=== PATIENT | female | born 1995 | race Caucasian/White ===

== ENCOUNTER 2016-06-07 12:59 | Inpatient (IN) | payer OTHER ==
[~2016-06-07] VITALS: Ht 167.6 cm; Wt 101.4 kg
[~2016-06-07 12:59] MED LIST: OMEP40CA3 PO
[2016-06-07 13:28] VITALS: BMI 36.3
[2016-06-07 13:29] VITALS: BP 131/76; PULSE 107; RESP 20
[2016-06-07] MEDS: LACTATED RINGER'S 1,000 ML IV SCH (13:39)
[2016-06-07] MEDS ORDERED: AMPICILLIN 2 GM/NS (PMX) 100 ML IV ONE (14:00)
[2016-06-07] MEDS ORDERED: MAGNESIUM SULFATE 4 GM/100 ML 100 ML IV ONE (14:00)
[2016-06-07] MEDS ORDERED: ONDANSETRON 4 MG INJ IV PRN (14:00)
[2016-06-07] MEDS: MAGNESIUM SULFATE 20 GM/500 ML 500 ML IV SCH (14:11)
[2016-06-07] MEDS: BETAMET NA PHOS/AC(6 MG/ML) 5ML INJ IM SCH (14:12)
[2016-06-07 14:32] LABS: ALBUMIN 3.8 g/dl (3.3-4.9)
[2016-06-07 14:33] LABS: POTASSIUM 3.7 mmol/L (3.5-5.1)
[2016-06-07 14:35] LABS: BILIRUBIN,INDIRECT 0.1 mg/dl (0-1.1); BILIRUBIN,TOTAL 0.1 mg/dl (0.2-1.3); CREATININE 0.39 mg/dl (0.44-1.00)
[2016-06-07 14:35] LABS: ADD UMIC YES; URINE BILIRUBIN (Dip) NEGATIVE (NEGATIVE); URINE BLOOD (Dip) NEGATIVE (NEGATIVE); URINE COLOR LT. YELLOW (YELLOW); URINE GLUCOSE (Dip) NEGATIVE (NEGATIVE); URINE KETONES (Dip) 3+ (NEGATIVE); URINE LEUKOCYTE ESTERASE (Dip) 1+ (NEGATIVE); URINE NITRITE (Dip) NEGATIVE (NEGATIVE); URINE TOTAL PROTEIN (Dip) NEGATIVE (NEGATIVE); URINE UROBILINOGEN (Dip) 1.0 E.U./dL (0.1-1.0)
[2016-06-07 14:36] LABS: ALBUMIN/GLOBULIN RATIO 1.05; CALCIUM 9.5 mg/dl (8.4-10.2); INR 0.92; PROTIME 12.4 Sec (12.2-14.2); TOTAL PROTEIN 7.4 g/dl (6.1-8.1)
[2016-06-07 14:37] LABS: PARTIAL THROMBOPLASTIN TIME 32.3 Sec (25.0-35.0)
[2016-06-07 14:47] LABS: URINE RBCS NONE SEEN /HPF (0)
[2016-06-07 15:43] LABS: BASOPHIL # 0.1 10^3/ul (0.0-0.1); BASOPHILS % 0.3 % (0.0-2.0); EOSINOPHILS % 0.2 % (0.0-7.0); HEMATOCRIT 38.4 % (37.0-47.0); HEMOGLOBIN 12.9 g/dl (12.0-16.0); LYMPHOCYTES # 2.3 10^3/ul (0.8-2.9); LYMPHOCYTES % 15.5 % (15.0-51.0); MEAN CORPUSCULAR HEMOGLOBIN 29.5 pg (29.0-33.0); MEAN CORPUSCULAR HGB CONC 33.7 g/dl (32.0-37.0); MEAN CORPUSCULAR VOLUME 87.7 fl (82.0-101.0); MEAN PLATELET VOLUME 10.2 fl (7.4-10.4); MONOCYTE # 0.9 10^3/ul (0.3-0.9); MONOCYTES % 6.1 % (0.0-11.0); NEUTROPHIL # 11.5 10^3/ul (1.6-7.5); NEUTROPHILS % 77.9 % (39.0-77.0); PLATELET COUNT 362 10^3/UL (140-440); RED BLOOD COUNT 4.38 10^6/ul (4.20-5.40); RED CELL DISTRIBUTION WIDTH 14.4 % (11.5-14.5); UNCORRECTED WBC 14.8 10^3/ul (4.8-10.8); WHITE BLOOD COUNT 14.8 10^3/ul (4.8-10.8)
[2016-06-07 15:45] LABS: CONDITION 1
[2016-06-07] MEDS: ACETAMINOPHEN 325 MG TAB PO PRN (17:42)
[2016-06-07] MEDS: AMPICILLIN 1 GM/NS (PMX) 50 ML IV SCH ×2 (17:42→21:31)
[2016-06-08] MEDS: MAGNESIUM SULFATE 20 GM/500 ML 500 ML IV SCH ×3 (01:01→20:26)
[2016-06-08] MEDS: AMPICILLIN 1 GM/NS (PMX) 50 ML IV SCH ×5 (02:06→17:26)
[2016-06-08] MEDS: LACTATED RINGER'S 1,000 ML IV SCH ×2 (02:07→17:26)
[2016-06-08] MEDS: ACETAMINOPHEN 325 MG TAB PO PRN (07:46)
[2016-06-08] MEDS: MULTIVIT/MIN/FOLATE/IRON/PREN TAB PO SCH (10:05)
[2016-06-08] MEDS: DOCUSATE SODIUM 100 MG CAP PO SCH (10:06)
[2016-06-08] MEDS: FERROUS SULFATE (EC) 325 MG TAB PO SCH (10:06)
[2016-06-08] MEDS: BETAMET NA PHOS/AC(6 MG/ML) 5ML INJ IM SCH (14:11)
--- NOTE | 2016-06-08 14:33 | HP ---
DATE OF ADMISSION: 06/07/2016 REQUESTING PHYSICIAN: Dr. Wild. HISTORY OF PRESENT ILLNESS: The patient was admitted on 06/07/2016, for labor. She was sta rted on magnesium and ampicillin, received the first dose of betamethasone. She may have a urinary tract infection. Gestation is 24 and 2/7 weeks. Her blood type is O positive, RPR nonreactive, hepatitis B surface a ntigen negative, HIV negative, group B strep not done. Her blood type is O negative. She had an ultrasound at 21 weeks, showing an estimated weight of 465 g on 05/17/2016, which i s about 3 weeks ago. Mother is a 22-year-old 2, para 1. I interviewed her together with the father in the room. She had a previous baby born at 22 weeks that was born at [facility] transferred [facility] and from respiratory failure and intracranial bleeding apparently. I spoke extensively to these folks for information about survival, which estimated at this time is a bout 65 to 75%, but chances of increasing survival increasing by the day and week. Respiratory prob lems including RDS, apnea, requiring ventilatory support and surfactant were discussed as well as fe eding including TPN, different arterial and venous access ways, risk for infection, hyperbilirubinem ia, intracranial hemorrhage and many other issues. Parents understood and asked good questions and all their questions were answered by the end of the interview. Thank you for allowing me to assist in the care of this family. Please call us for delivery attenda nce and NICU care, of course, although it may be that delivery might be postponed for a while. Dictated By: MARIELA NAVARRO/KRISTINA Conf#: [id number] DID#: [id number] CC: SHEKHAR WILD MD;*EndCC*
--- NOTE | 2016-06-08 18:22 | HP ---
Date/Time of Note Date/Time of Note DATE: 06/08/16 TIME: 18:18 OB - History Hx of Present Chief Complaint: Short cervix Estimated Due Date: September 27, 2016 : 2 Para: 1 Spontaneous : 0 Therapeutic : 0 Ultrasounds: Abnormal US findings (short cervix 1.1 cm) Obstetrical Complications: Other (threatened labor) Medical Complications: None Past Family/Social History * Past Medical, Surgical, Family and Obstetric Histories reviewed from chart. OB Admission Exam Vital Signs Vital Signs Vital Signs Date Time Temp Pulse Resp B/P Pulse Ox O2 Delivery O2 Flow Rate FiO2 06/07/16 13:29 98.5 107 20 131/76 Room Air Physical Exam HEENT: WNL Heart: Rhythm Normal Lungs: Clear Abdomen: WNL Extremities: Normal Cervical Dilatation: None Effacement: 100% Membranes: Intact Last 72 hours Lab Results CBC & BMP 06/07/16 13:15 06/07/16 13:30 Liver Function Test 06/07/16 13:15 Alanine Aminotransferase (ALT/SGPT) 38 Albumin 3.8 Alkaline Phosphatase 182 H Aspartate Amino Transf (AST/SGOT) 23 Direct Bilirubin 0.00 Total Protein 7.4 Magnesium Level Test 06/07/16 17:35 06/08/16 00:30 06/08/16 05:40 06/08/16 12:55 Magnesium Level 4.1 H 4.6 H 4.7 H 4.5 H OB Assessment/Plan Reason for admission: labor Other plan: Admit. IV magnesium sulfate IM betamethasone NICU consult MFM consult SHEKHAR WILD MD Jun 08, 2016 18:22
[2016-06-08] MEDS ORDERED: AMPICILLIN 2 GM/NS (PMX) 100 ML IVPB SCH (18:30)
[2016-06-08] MEDS ORDERED: AMPICILLIN 1 GM/NS (PMX) 50 ML IV SCH (18:45)
[2016-06-09] MEDS: ACETAMINOPHEN 325 MG TAB PO PRN ×2 (00:07→06:09)
[2016-06-09] MEDS: AMPICILLIN 2 GM/NS (PMX) 100 ML IVPB SCH ×4 (00:16→17:32)
[2016-06-09] MEDS: MAGNESIUM SULFATE 20 GM/500 ML 500 ML IV SCH ×2 (07:40→17:31)
[2016-06-09] MEDS: MULTIVIT/MIN/FOLATE/IRON/PREN TAB PO SCH (09:50)
[2016-06-09] MEDS: DOCUSATE SODIUM 100 MG CAP PO SCH (09:50)
[2016-06-09] MEDS: FERROUS SULFATE (EC) 325 MG TAB PO SCH (09:50)
[2016-06-09] MEDS: LACTATED RINGER'S 1,000 ML IV SCH (10:57)
[2016-06-10] MEDS: AMPICILLIN 2 GM/NS (PMX) 100 ML IVPB SCH ×5 (00:08→23:33)
[2016-06-10] MEDS: LACTATED RINGER'S 1,000 ML IV SCH ×2 (00:14→14:10)
[2016-06-10] MEDS: MAGNESIUM SULFATE 20 GM/500 ML 500 ML IV SCH (03:42)
[2016-06-10] MEDS: DOCUSATE SODIUM 100 MG CAP PO SCH (08:57)
[2016-06-10] MEDS: FERROUS SULFATE (EC) 325 MG TAB PO SCH (08:57)
[2016-06-10] MEDS: MULTIVIT/MIN/FOLATE/IRON/PREN TAB PO SCH (08:58)
[2016-06-10] MEDS: ACETAMINOPHEN 325 MG TAB PO PRN (09:41)
[2016-06-10] MEDS: [UNRECOGNIZED DRUG - OTHER] IM SCH (13:57)
--- NOTE | 2016-06-10 16:32 | QN ---
Documentation Comment No complaint. Afebrile VSS Strip Appropriate for GA D/C magnesium sulfate Continue with in hospital care. SHEKHAR WILD MD Jun 10, 2016 16:32
[2016-06-10] MEDS ORDERED: SENNA TAB PO ONE (21:00)
[2016-06-10] MEDS: WITCH HAZEL/GLYCERIN PAD PR PRN (21:43)
[2016-06-11] MEDS: LACTATED RINGER'S 1,000 ML IV SCH ×2 (05:38→21:36)
[2016-06-11] MEDS: AMPICILLIN 2 GM/NS (PMX) 100 ML IVPB SCH ×3 (05:39→18:21)
[2016-06-11] MEDS: MULTIVIT/MIN/FOLATE/IRON/PREN TAB PO SCH (08:57)
[2016-06-11] MEDS: FERROUS SULFATE (EC) 325 MG TAB PO SCH (08:58)
[2016-06-11] MEDS: DOCUSATE SODIUM 100 MG CAP PO SCH (09:01)
--- NOTE | 2016-06-11 16:56 | QN ---
Documentation Comment @24+WKS GA with shortened cervix No CTX +FM No LOF NO VB NST ressuring for GA (last one) [facility] No CTXs Pelvic Deffered s/p MG and steroids --->Close Observation --->Management as per Perinatalogy SHARON FIELDS M.D. Jun 11, 2016 16:56
[2016-06-11] MEDS: ACETAMINOPHEN 325 MG TAB PO PRN (22:26)
[2016-06-12] MEDS: AMPICILLIN 2 GM/NS (PMX) 100 ML IVPB SCH ×4 (00:15→18:22)
[2016-06-12] MEDS: DOCUSATE SODIUM 100 MG CAP PO SCH (09:05)
[2016-06-12] MEDS: MULTIVIT/MIN/FOLATE/IRON/PREN TAB PO SCH (09:06)
[2016-06-12] MEDS: FERROUS SULFATE (EC) 325 MG TAB PO SCH (09:06)
[2016-06-12] MEDS: LACTATED RINGER'S 1,000 ML IV SCH (14:30)
--- NOTE | 2016-06-12 19:39 | QN ---
Documentation Comment No complaint Afebrile VSS strip Appropriate for GA Continue with inhospital care. SHEKHAR WILD MD Jun 12, 2016 19:39
[2016-06-13] MEDS: AMPICILLIN 2 GM/NS (PMX) 100 ML IVPB SCH ×4 (00:03→17:46)
[2016-06-13] MEDS: LACTATED RINGER'S 1,000 ML IV SCH ×4 (02:59→21:53)
[2016-06-13] MEDS: DOCUSATE SODIUM 100 MG CAP PO SCH (08:42)
[2016-06-13] MEDS: MULTIVIT/MIN/FOLATE/IRON/PREN TAB PO SCH (08:42)
[2016-06-13] MEDS: FERROUS SULFATE (EC) 325 MG TAB PO SCH (08:42)
--- NOTE | 2016-06-13 18:59 | QN ---
Documentation Comment No complaint. Afebrile VSS Strip Appropriate for GA Continue with present care. SHEKHAR WILD MD Jun 13, 2016 18:59
[2016-06-14] MEDS: AMPICILLIN 2 GM/NS (PMX) 100 ML IVPB SCH ×4 (00:25→19:15)
[2016-06-14] MEDS: MULTIVIT/MIN/FOLATE/IRON/PREN TAB PO SCH (08:50)
[2016-06-14] MEDS: FERROUS SULFATE (EC) 325 MG TAB PO SCH (08:51)
[2016-06-14] MEDS: DOCUSATE SODIUM 100 MG CAP PO SCH (08:51)
[2016-06-14] MEDS: SENNA TAB PO SCH (08:51)
[2016-06-14] MEDS: LACTATED RINGER'S 1,000 ML IV SCH (11:33)
[2016-06-15] MEDS: AMPICILLIN 2 GM/NS (PMX) 100 ML IVPB SCH ×4 (00:01→17:58)
--- NOTE | 2016-06-15 01:11 | QN ---
Documentation Comment No complaint Afebrile VSS Strip Appropriate for GA Continue with in hospital care. SHEKHAR WILD MD Jun 15, 2016 01:11
[2016-06-15] MEDS: LACTATED RINGER'S 1,000 ML IV SCH ×2 (02:36→17:33)
[2016-06-15] MEDS: FERROUS SULFATE (EC) 325 MG TAB PO SCH (09:01)
[2016-06-15] MEDS: MULTIVIT/MIN/FOLATE/IRON/PREN TAB PO SCH (09:01)
[2016-06-15] MEDS: SENNA TAB PO SCH (09:01)
[2016-06-15] MEDS: DOCUSATE SODIUM 100 MG CAP PO SCH (09:01)
[2016-06-16] MEDS: AMPICILLIN 2 GM/NS (PMX) 100 ML IVPB SCH ×5 (00:43→23:32)
[2016-06-16] MEDS: MULTIVIT/MIN/FOLATE/IRON/PREN TAB PO SCH (09:19)
[2016-06-16] MEDS: SENNA TAB PO SCH (09:19)
[2016-06-16] MEDS: FERROUS SULFATE (EC) 325 MG TAB PO SCH (09:20)
[2016-06-16] MEDS: DOCUSATE SODIUM 100 MG CAP PO SCH (09:20)
[2016-06-16] MEDS: LACTATED RINGER'S 1,000 ML IV SCH ×2 (10:01→23:32)
[2016-06-16] MEDS: ACETAMINOPHEN 325 MG TAB PO PRN ×2 (13:42→18:11)
--- NOTE | 2016-06-16 19:55 | QN ---
Documentation Comment No complaint Afebrile VSS Strip Appropriate for GA Continue with in hospital care. SHEKHAR WILD MD Jun 16, 2016 19:55
[2016-06-17] MEDS: AMPICILLIN 2 GM/NS (PMX) 100 ML IVPB SCH ×2 (05:53→11:29)
[2016-06-17] MEDS: MULTIVIT/MIN/FOLATE/IRON/PREN TAB PO SCH (08:41)
[2016-06-17] MEDS: FERROUS SULFATE (EC) 325 MG TAB PO SCH (08:41)
[2016-06-17] MEDS: DOCUSATE SODIUM 100 MG CAP PO SCH (08:41)
[2016-06-17] MEDS: SENNA TAB PO SCH (08:41)
[2016-06-17] MEDS: LACTATED RINGER'S 1,000 ML IV SCH (11:29)
[2016-06-17] MEDS: [UNRECOGNIZED DRUG - OTHER] IM SCH (11:40)
--- NOTE | 2016-06-17 16:01 | QN ---
Documentation Comment No complaint Afebrile VSS Strip Appropriate for GA Patient is on weekly injection of [place] Continue with in hospital care. SHEKHAR WILD MD Jun 17, 2016 16:01
[2016-06-18] MEDS: DOCUSATE SODIUM 100 MG CAP PO SCH (08:57)
[2016-06-18] MEDS: FERROUS SULFATE (EC) 325 MG TAB PO SCH (08:57)
[2016-06-18] MEDS: SENNA TAB PO SCH (08:57)
[2016-06-18] MEDS: MULTIVIT/MIN/FOLATE/IRON/PREN TAB PO SCH (08:57)
--- NOTE | 2016-06-18 15:30 | QN ---
Documentation Comment No complaint Afebrile VSS Strip Appropriate for GA Continue with in hospital care. SHEKHAR WLID MD Jun 18, 2016 15:30
[2016-06-19] MEDS: DOCUSATE SODIUM 100 MG CAP PO SCH (08:51)
[2016-06-19] MEDS: SENNA TAB PO SCH (08:51)
[2016-06-19] MEDS: MULTIVIT/MIN/FOLATE/IRON/PREN TAB PO SCH (08:51)
[2016-06-19] MEDS: FERROUS SULFATE (EC) 325 MG TAB PO SCH (08:51)
[2016-06-19] MEDS: ACETAMINOPHEN 325 MG TAB PO PRN (13:06)
--- NOTE | 2016-06-19 19:40 | QN ---
Documentation Comment No complaint Afebrile VSS Strip Appropriate for GA Continue with present care. SHEKHAR WILD MD Jun 19, 2016 19:40
[2016-06-20] MEDS: DOCUSATE SODIUM 100 MG CAP PO SCH (09:52)
[2016-06-20] MEDS: MULTIVIT/MIN/FOLATE/IRON/PREN TAB PO SCH (09:53)
[2016-06-20] MEDS: SENNA TAB PO SCH (09:53)
[2016-06-20] MEDS: FERROUS SULFATE (EC) 325 MG TAB PO SCH (09:53)
[2016-06-20] MEDS: ACETAMINOPHEN 325 MG TAB PO PRN (13:14)
--- NOTE | 2016-06-20 14:10 | QN ---
Documentation Comment No complaint Afebrile VSS Strip Appropriate for GA Continue with present care. SHEKHAR WILD MD Jun 20, 2016 14:10
[2016-06-21] MEDS: MULTIVIT/MIN/FOLATE/IRON/PREN TAB PO SCH (08:57)
[2016-06-21] MEDS: DOCUSATE SODIUM 100 MG CAP PO SCH (08:57)
[2016-06-21] MEDS: FERROUS SULFATE (EC) 325 MG TAB PO SCH (08:57)
[2016-06-21] MEDS: SENNA TAB PO SCH (08:57)
--- NOTE | 2016-06-21 20:12 | QN ---
Documentation Comment No complaint Afebrile VSS Strip Appropriate for GA Continue with in hospital care. SHEKHAR WILD MD Jun 21, 2016 20:12
[2016-06-22] MEDS: FERROUS SULFATE (EC) 325 MG TAB PO SCH (08:56)
[2016-06-22] MEDS: DOCUSATE SODIUM 100 MG CAP PO SCH (08:56)
[2016-06-22] MEDS: SENNA TAB PO SCH (08:56)
[2016-06-22] MEDS: MULTIVIT/MIN/FOLATE/IRON/PREN TAB PO SCH (08:56)
--- NOTE | 2016-06-22 23:21 | PN ---
Date/Time of Note Date/Time of Note DATE: 06/22/16 TIME: 23:19 OB Subjective Subjective Subjective 20 yo P0100 @ 26.1 wks w shortened cervix -s/p magnesium sulfate and betamethasone -patient receiving weekly progesterone shots - NST appropriate for gestational age - c/w plan as per ARNOLDO Cote MD Jun 22, 2016 23:21
[2016-06-23] MEDS: SENNA TAB PO SCH (09:10)
[2016-06-23] MEDS: FERROUS SULFATE (EC) 325 MG TAB PO SCH (09:10)
[2016-06-23] MEDS: MULTIVIT/MIN/FOLATE/IRON/PREN TAB PO SCH (09:10)
[2016-06-23] MEDS: DOCUSATE SODIUM 100 MG CAP PO SCH (09:10)
[2016-06-23] MEDS ORDERED: WITCH HAZEL/GLYCERIN PAD PR PRN (16:00)
--- NOTE | 2016-06-23 18:06 | QN ---
Documentation Comment No complaint Afebrile VSS Strip Appropriate for GA Continue with present care. SHEKHAR WILD MD Jun 23, 2016 18:06
[2016-06-24] MEDS: DOCUSATE SODIUM 100 MG CAP PO SCH (08:51)
[2016-06-24] MEDS: FERROUS SULFATE (EC) 325 MG TAB PO SCH (08:51)
[2016-06-24] MEDS: MULTIVIT/MIN/FOLATE/IRON/PREN TAB PO SCH (08:51)
[2016-06-24] MEDS: SENNA TAB PO SCH (08:52)
[2016-06-24] MEDS: [UNRECOGNIZED DRUG - OTHER] IM SCH (16:35)
--- NOTE | 2016-06-24 16:41 | QN ---
Documentation Comment no complaint Afebrile VSS Strip Appropriate for GA Continue with in hospital care. SHEKHAR WILD MD Jun 24, 2016 16:41
[2016-06-25] MEDS: SENNA TAB PO SCH (09:08)
[2016-06-25] MEDS: FERROUS SULFATE (EC) 325 MG TAB PO SCH (09:09)
[2016-06-25] MEDS: MULTIVIT/MIN/FOLATE/IRON/PREN TAB PO SCH (09:09)
[2016-06-25] MEDS: DOCUSATE SODIUM 100 MG CAP PO SCH (09:09)
--- NOTE | 2016-06-25 13:16 | QN ---
Documentation Comment pt doing well no complaints vss catb abd soft ap-short cervix stable continue care MOE WEBBER MD Jun 25, 2016 13:16
[2016-06-26] MEDS: FERROUS SULFATE (EC) 325 MG TAB PO SCH (08:13)
[2016-06-26] MEDS: SENNA TAB PO SCH (08:13)
[2016-06-26] MEDS: MULTIVIT/MIN/FOLATE/IRON/PREN TAB PO SCH (08:13)
[2016-06-26] MEDS: DOCUSATE SODIUM 100 MG CAP PO SCH (08:14)
--- NOTE | 2016-06-26 12:18 | QN ---
Documentation Comment No complaint Afebrile VSS Strip Appropriate for GA Continue with in hospital care. SHEKHAR WILD MD Jun 26, 2016 12:18
[2016-06-26] MEDS: AL HYDROX/MG HYDROX/SIMETH 30 ML CUP PO PRN ×2 (12:37→20:25)
[2016-06-26] MEDS: ACETAMINOPHEN 325 MG TAB PO PRN (12:39)
[2016-06-27] MEDS: SENNA TAB PO SCH (08:52)
[2016-06-27] MEDS: FERROUS SULFATE (EC) 325 MG TAB PO SCH (08:52)
[2016-06-27] MEDS: MULTIVIT/MIN/FOLATE/IRON/PREN TAB PO SCH (08:52)
[2016-06-27] MEDS: DOCUSATE SODIUM 100 MG CAP PO SCH (08:52)
[2016-06-27] MEDS ORDERED: PANTOPRAZOLE (EC) 40 MG TAB PO ONE (10:30)
--- NOTE | 2016-06-27 11:11 | RADRPT ---
AMENDMENT: 06/28/2016 1:46:28 PM Tony Roberts MD Maximum vertical pocket of amniotic fluid is 4.8 cm. PROCEDURE: US OB. CLINICAL INDICATION: Short cervix. TECHNIQUE: Multiple sonographic images of the uterus were obtained. The images were revi ewed on a PACS workstation. COMPARISON: No prior studies are available for comparison. FINDINGS: There is a single live intrauterine gestation. heart rate is 159 beats per minute. Measurements were made in order to determine age. The results are as follows: BPD = 7.13 cm. HC = 26.34 cm. AC = 23.99 cm. FL = 5.04 cm. Estimated weight is 1149 +/- 172 grams. LMP growth percentile is 81 %. Menstrual age by ultrasound dates is 28 weeks 1 day. The estimated date of delivery is 09/18/2016. Position is cephalic and placenta is anterior grade 1. There is no evidence for an abruption or plac enta previa. IMPRESSION: 1. Single live intrauterine gestation of 28 weeks 1 day menstrual age by ultrasound dates. 2. The estimated date of delivery is 09/18/2016. RPTAT: QQ .Tony Roberts MD, Date Time Electronically viewed and signed by .Tony Roberts MD, on 06/28/2016 13:46 .R/
[2016-06-27] MEDS: ACETAMINOPHEN 325 MG TAB PO PRN (13:05)
--- NOTE | 2016-06-27 15:21 | PN ---
Date/Time of Note Date/Time of Note DATE: 06/27/16 TIME: 15:17 OB Subjective Subjective Subjective June 27, 2016 Hospital consult This patient is a 20 years old 1 para 1 living 0 who lost her first due prematurity and delivering at 22 weeks gestation did not survive. this is the second she was admitted in the hospital about 4 weeks ago to short cervix today she is 26 weeks and 6 days fortunately does not have much of the contractions her last ultrasound a few days ago was reported at the cervical length of 1 cm yesterday on pelvic examination done by Dr. Ferraro the cervix looked pretty much the same with no dilatation. Today when I saw her. she had no contractions . her own BP is around 120/70 range on ultrasound study today estimated weight was 1149 g her previous medications which was ampicillin the mag sulfate were discontinued The plan is to l continue having her in the hospital for a few weeks. Current Medications Medications (Trade) Dose Ordered Sig/Maximiliano Route PRN Reason Start Time Stop Time Status Last Admin Dose Admin Lactated Ringer's 1,000 ml @ 75 mls/hr [id number] IV 06/07/16 13:39 06/17/16 15:41 DC 06/17/16 11:29 Magnesium Sulfate (Magnesium Sulfate 4 Gm/100 ml) 100 ml @ 200 mls/hr ONCE ONCE IV 06/07/16 14:00 06/07/16 14:29 DC 06/07/16 14:10 Betamethasone Acet/Betameth SodPhos 12 mg 12 mg Q24H IM 06/07/16 14:00 06/08/16 14:01 DC 06/08/16 14:11 Ampicillin 100 ml @ 100 mls/hr ONCE ONCE IV 06/07/16 14:00 06/07/16 15:01 DC 06/07/16 14:12 Ampicillin (Ampicillin 1 Gm/ NS (Pmx)) 50 ml @ 100 mls/hr Q4H IV 06/07/16 18:00 06/08/16 18:30 DC 06/08/16 17:26 Prenat Multivit/ [employer]/Iron/Folic Ac ( S) 1 tab DAILY PO 06/08/16 09:00 06/27/16 08:52 Ferrous Sulfate (Ferrous Sulfate (Ec)) 325 mg DAILY PO 06/08/16 09:00 06/27/16 08:52 Docusate Sodium (Colace) 100 mg DAILY PO 06/08/16 09:00 06/27/16 08:52 Acetaminophen (Tylenol Tab) 650 mg Q4H PRN PO PAIN AND OR ELEVATED TEMP 06/07/16 14:00 06/27/16 13:05 Al Hydrox/Mg Hydrox/Simethicone (Mag-Al Plus) 30 ml Q6H PRN PO GASTROINTESTINAL UPSET 06/07/16 14:00 06/26/16 20:25 Ondansetron HCl 4 mg 4 mg Q6H PRN IV NAUSEA AND/OR VOMITING 06/07/16 14:00 Magnesium Sulfate 500 ml @ 50 mls/hr Q10H IV 06/07/16 14:04 06/11/16 13:48 DC 06/10/16 03:42 Ampicillin 100 ml @ 100 mls/hr Q6 IVPB 06/08/16 18:30 06/08/16 18:33 DC Ampicillin 100 ml @ 100 mls/hr Q6 IVPB 06/09/16 00:00 06/17/16 15:41 DC 06/17/16 11:29 Ampicillin (Ampicillin 1 Gm/ NS (Pmx)) 50 ml @ 100 mls/hr ONCE IV 06/08/16 18:45 06/08/16 19:30 DC 06/08/16 18:44 Non-Formulary Medication ADMINISTER 1ML (250MG) INTRAMUSCULA... Sa@14 IM 06/10/16 14:00 06/24/16 16:35 Senna (Senokot) 2 tab ONCE ONCE PO 06/10/16 21:00 06/11/16 13:51 DC 06/10/16 21:44 [place]/ Glycerin (Tucks Pads) 1 pad PRN PRN ME HEMORRHOID/EPISIOTMY PAIN 06/10/16 21:00 06/10/16 21:43 Senna (Senokot) 1 tab DAILY PO 06/14/16 09:00 06/27/16 08:52 [place]/ Glycerin (Tucks Pads) 1 pad PRN PRN ME HEMORROID PAIN/ITCHING 06/23/16 16:00 Pantoprazole (Protonix Tab) 40 mg ONCE ONCE PO 06/27/16 10:30 06/27/16 10:33 DC 06/27/16 11:32 End of dictation PARI BARNES MD Jun 27, 2016 15:21
[2016-06-28] MEDS ORDERED: PANTOPRAZOLE (EC) 40 MG TAB PO SCH (09:00)
[2016-06-28] MEDS: MULTIVIT/MIN/FOLATE/IRON/PREN TAB PO SCH (09:23)
[2016-06-28] MEDS: SENNA TAB PO SCH (09:23)
[2016-06-28] MEDS: DOCUSATE SODIUM 100 MG CAP PO SCH (09:23)
[2016-06-28] MEDS: FERROUS SULFATE (EC) 325 MG TAB PO SCH (09:23)
[2016-06-28] MEDS: ACETAMINOPHEN 325 MG TAB PO PRN (15:41)
--- NOTE | 2016-06-28 20:07 | QN ---
Documentation Comment No complaint Afebrile VSS Strip Appropriate for GA Continue with in hospital care. SHEKHAR WILD MD Jun 28, 2016 20:07
[2016-06-29] MEDS: MULTIVIT/MIN/FOLATE/IRON/PREN TAB PO SCH (09:12)
[2016-06-29] MEDS: SENNA TAB PO SCH (09:12)
[2016-06-29] MEDS: DOCUSATE SODIUM 100 MG CAP PO SCH (09:12)
[2016-06-29] MEDS: FERROUS SULFATE (EC) 325 MG TAB PO SCH (09:12)
--- NOTE | 2016-06-29 17:59 | QN ---
Documentation Comment No complaint Afebrile VSS Strip Appropriate for GA Continue with in hospital care. SHEKHAR WILD MD Jun 29, 2016 17:59
[2016-06-29] MEDS: ACETAMINOPHEN 325 MG TAB PO PRN (19:36)
[2016-06-30] MEDS: FERROUS SULFATE (EC) 325 MG TAB PO SCH (09:05)
[2016-06-30] MEDS: MULTIVIT/MIN/FOLATE/IRON/PREN TAB PO SCH (09:05)
[2016-06-30] MEDS: SENNA TAB PO SCH (09:05)
[2016-06-30] MEDS: DOCUSATE SODIUM 100 MG CAP PO SCH (09:06)
[2016-06-30] MEDS: AL HYDROX/MG HYDROX/SIMETH 30 ML CUP PO PRN (12:53)
--- NOTE | 2016-06-30 13:35 | QN ---
Documentation Comment No complaint Afebrile VSS Strip Appropriate for GA Continue with in hospital care. SHEKHAR WILD MD Jun 30, 2016 13:35
[2016-07-01] MEDS: ACCU-CHEK XX SCH ×4 (07:59→19:31)
[2016-07-01] MEDS: FERROUS SULFATE (EC) 325 MG TAB PO SCH (08:39)
[2016-07-01] MEDS: MULTIVIT/MIN/FOLATE/IRON/PREN TAB PO SCH (08:39)
[2016-07-01] MEDS: DOCUSATE SODIUM 100 MG CAP PO SCH (08:39)
[2016-07-01] MEDS: SENNA TAB PO SCH (08:39)
[2016-07-01] MEDS: [UNRECOGNIZED DRUG - OTHER] IM SCH (14:14)
[2016-07-01] MEDS: ACETAMINOPHEN 325 MG TAB PO PRN (14:24)
--- NOTE | 2016-07-01 19:05 | QN ---
Documentation Comment No complaint Afebrile VSS strip appropriate for GA 3 hour GTT elevated Patient is on ADA diet and accu-checks are done fasting and 2 hour pp. SHEKHAR WILD MD Jul 01, 2016 19:05
[2016-07-02] MEDS: ACCU-CHEK XX SCH ×3 (08:03→14:55)
[2016-07-02] MEDS: MULTIVIT/MIN/FOLATE/IRON/PREN TAB PO SCH (08:53)
[2016-07-02] MEDS: FERROUS SULFATE (EC) 325 MG TAB PO SCH (08:54)
[2016-07-02] MEDS: DOCUSATE SODIUM 100 MG CAP PO SCH (08:54)
[2016-07-02] MEDS: SENNA TAB PO SCH (08:54)
[2016-07-02] MEDS: ACETAMINOPHEN 325 MG TAB PO PRN (10:58)
--- NOTE | 2016-07-02 18:40 | QN ---
Documentation Comment No complaint Afebrile VSS Strip Appropriate for GA Blood glucose well controlled with diet. Continue with present care. SHEKHAR WILD MD Jul 02, 2016 18:39
[2016-07-03] MEDS: ACCU-CHEK XX SCH ×4 (07:42→20:17)
[2016-07-03] MEDS: SENNA TAB PO SCH (08:54)
[2016-07-03] MEDS: MULTIVIT/MIN/FOLATE/IRON/PREN TAB PO SCH (08:54)
[2016-07-03] MEDS: FERROUS SULFATE (EC) 325 MG TAB PO SCH (08:54)
[2016-07-03] MEDS: DOCUSATE SODIUM 100 MG CAP PO SCH (08:54)
--- NOTE | 2016-07-03 14:08 | QN ---
Documentation Comment No complaint Afebrile VSS Strip appropriate for GA Continue with in hospital care. SHEKHAR WILD MD Jul 03, 2016 14:08
[2016-07-04] MEDS: ACCU-CHEK XX SCH ×4 (08:36→20:59)
[2016-07-04] MEDS: SENNA TAB PO SCH (09:00)
[2016-07-04] MEDS: MULTIVIT/MIN/FOLATE/IRON/PREN TAB PO SCH (09:00)
[2016-07-04] MEDS: FERROUS SULFATE (EC) 325 MG TAB PO SCH (09:00)
[2016-07-04] MEDS: DOCUSATE SODIUM 100 MG CAP PO SCH (09:00)
--- NOTE | 2016-07-04 11:07 | PN ---
Date/Time of Note Date/Time of Note DATE: 07/04/16 TIME: 11:00 OB Subjective Subjective Subjective July 04, 2016 Hospital visit This patient is a 20 years old 1 para 1 living 0 who lost her first due prematurity and delivering at 22 weeks gestation did not survive. this is the second she was admitted in the hospital about 2 months ago . She is now 27 weeks and 6 days . Basically she is doing very well,. No contractions,. heart tracing is normal , her NST today is reactive. No abdominal tenderness. No calf tenderness We will continue her observation care in the hospital for now Laboratory Tests Test 07/03/16 14:54 07/03/16 20:13 07/04/16 08:36 07/04/16 10:46 Bedside Glucose 93mg/dL 118mg/dL 75mg/dL 78mg/dL Current Medications Medications (Trade) Dose Ordered Sig/Maximiliano Route PRN Reason Start Time Stop Time Status Last Admin Dose Admin Lactated Ringer's 1,000 ml @ 75 mls/hr [id number] IV 06/07/16 13:39 06/17/16 15:41 DC 06/17/16 11:29 Magnesium Sulfate (Magnesium Sulfate 4 Gm/100 ml) 100 ml @ 200 mls/hr ONCE ONCE IV 06/07/16 14:00 06/07/16 14:29 DC 06/07/16 14:10 Betamethasone Acet/Betameth SodPhos 12 mg 12 mg Q24H IM 06/07/16 14:00 06/08/16 14:01 DC 06/08/16 14:11 Ampicillin 100 ml @ 100 mls/hr ONCE ONCE IV 06/07/16 14:00 06/07/16 15:01 DC 06/07/16 14:12 Ampicillin (Ampicillin 1 Gm/ NS (Pmx)) 50 ml @ 100 mls/hr Q4H IV 06/07/16 18:00 06/08/16 18:30 DC 06/08/16 17:26 Prenat Multivit/ [place]/Iron/Folic Ac ( S) 1 tab DAILY PO 06/08/16 09:00 07/04/16 09:00 Ferrous Sulfate (Ferrous Sulfate (Ec)) 325 mg DAILY PO 06/08/16 09:00 07/04/16 09:00 Docusate Sodium (Colace) 100 mg DAILY PO 06/08/16 09:00 07/04/16 09:00 Acetaminophen (Tylenol Tab) 650 mg Q4H PRN PO PAIN AND OR ELEVATED TEMP 06/07/16 14:00 07/02/16 10:58 Al Hydrox/Mg Hydrox/Simethicone (Mag-Al Plus) 30 ml Q6H PRN PO GASTROINTESTINAL UPSET 06/07/16 14:00 06/30/16 12:53 Ondansetron HCl 4 mg 4 mg Q6H PRN IV NAUSEA AND/OR VOMITING 06/07/16 14:00 Magnesium Sulfate 500 ml @ 50 mls/hr Q10H IV 06/07/16 14:04 06/11/16 13:48 DC 06/10/16 03:42 Ampicillin 100 ml @ 100 mls/hr Q6 IVPB 06/08/16 18:30 06/08/16 18:33 DC Ampicillin 100 ml @ 100 mls/hr Q6 IVPB 06/09/16 00:00 06/17/16 15:41 DC 06/17/16 11:29 Ampicillin (Ampicillin 1 Gm/ NS (Pmx)) 50 ml @ 100 mls/hr ONCE IV 06/08/16 18:45 06/08/16 19:30 DC 06/08/16 18:44 Non-Formulary Medication ADMINISTER 1ML (250MG) INTRAMUSCULA... Sa@14 IM 06/10/16 14:00 07/01/16 14:14 Senna (Senokot) 2 tab ONCE ONCE PO 06/10/16 21:00 06/11/16 13:51 DC 06/10/16 21:44 [place]/ Glycerin (Tucks Pads) 1 pad PRN PRN GA HEMORRHOID/EPISIOTMY PAIN 06/10/16 21:00 06/10/16 21:43 Senna (Senokot) 1 tab DAILY PO 06/14/16 09:00 07/04/16 09:00 [place]/ Glycerin (Tucks Pads) 1 pad PRN PRN GA HEMORROID PAIN/ITCHING 06/23/16 16:00 Pantoprazole (Protonix Tab) 40 mg ONCE ONCE PO 06/27/16 10:30 06/28/16 09:29 DC 06/27/16 11:32 Pantoprazole (Protonix Tab) 40 mg DAILY@06 PO 06/28/16 09:00 06/28/16 09:31 DC 06/28/16 09:23 Diagnostic Test (Pha) (Accucheck) 1 ea FBSPP XX 07/01/16 07:30 07/04/16 08:36 PARI BARNES MD Jul 04, 2016 11:07
[2016-07-05] MEDS: ACCU-CHEK XX SCH ×4 (08:00→20:05)
[2016-07-05] MEDS: DOCUSATE SODIUM 100 MG CAP PO SCH (09:05)
[2016-07-05] MEDS: SENNA TAB PO SCH (09:05)
[2016-07-05] MEDS: MULTIVIT/MIN/FOLATE/IRON/PREN TAB PO SCH (09:05)
[2016-07-05] MEDS: FERROUS SULFATE (EC) 325 MG TAB PO SCH (09:05)
--- NOTE | 2016-07-05 12:37 | PN ---
Date/Time of Note Date/Time of Note DATE: 07/05/16 TIME: 12:32 OB Subjective Subjective Subjective Patient denies any pain, contractions, LOF or vaginal bleeding, abdominal pain or any other complaint. She denies decreased movement OB Objective Objective Objective GA: A&O, NAD Comfortable in the bed. Abdomen: soft, non tender, Gravid. No rebound tenderness, Fundal Height consistent with GA NST: Cat 1 and is appropriate for GA No contractions on the monitor OB Assessment/Plan Other Assessment: IUP at 28 weeks Admitted for the past several weeks due to short cervix. now stable history of PTD at 22 weeks S/p 2 doses of steriod and Magnesium and received antibiotics Now of of Magnesium and Abx Stable and asymptomatic Plan to continue expectant management in house. GDM based on the Glucose tolerance test, on 2000 Kcal diet . Blood sugars are in fairly normal limits S/p Perinatology and neonatology consultation. continue NST Q shift DINAH DIETRICH MD Jul 05, 2016 12:37
[2016-07-05] MEDS ORDERED: INFLUENZA VIRUS VACCINE 0.5 ML SYG IM* ONE (13:00)
[2016-07-05] MEDS ORDERED: DIPHTH/TET/ACEL PERTUSS (ADULT) 0.5 ML VIAL IM* ONE (14:00)
[2016-07-05] MEDS: ACETAMINOPHEN 325 MG TAB PO PRN (18:34)
[2016-07-06] MEDS: ACCU-CHEK XX SCH ×4 (08:00→20:39)
[2016-07-06] MEDS: SENNA TAB PO SCH (09:37)
[2016-07-06] MEDS: FERROUS SULFATE (EC) 325 MG TAB PO SCH (09:37)
[2016-07-06] MEDS: MULTIVIT/MIN/FOLATE/IRON/PREN TAB PO SCH (09:37)
[2016-07-06] MEDS: DOCUSATE SODIUM 100 MG CAP PO SCH (09:38)
--- NOTE | 2016-07-06 20:27 | QN ---
Documentation Comment S: Patient has no complaints; good FM, no VB, no LOF, no ctx O: nml VS Abdomen- gravid, n/t reactive NST [place]- no ctx A/P: IUP at 28 weeks, 1 day Admitted for the past several weeks due to short cervix. now stable history of PTD at 22 weeks S/p 2 doses of steriod and Magnesium and received antibiotics Now of of Magnesium and Abx Stable and asymptomatic Plan to continue expectant management in house. GDM based on the Glucose tolerance test, on 2000 Kcal diet . Blood sugars are in fairly normal limits S/p Perinatology and neonatology consultation. continue NST Q shift ARNOLDO VILLA MD Jul 06, 2016 20:27
[2016-07-07] MEDS: ACCU-CHEK XX SCH ×4 (08:25→21:38)
[2016-07-07] MEDS: DOCUSATE SODIUM 100 MG CAP PO SCH (09:15)
[2016-07-07] MEDS: SENNA TAB PO SCH (09:15)
[2016-07-07] MEDS: FERROUS SULFATE (EC) 325 MG TAB PO SCH (09:15)
[2016-07-07] MEDS: MULTIVIT/MIN/FOLATE/IRON/PREN TAB PO SCH (09:15)
--- NOTE | 2016-07-07 18:53 | QN ---
Documentation Comment No complaiont. Afebrile VSS Strip appropriate for GA Continue with present care. SHEKHAR WILD MD Jul 07, 2016 18:53
[2016-07-08] MEDS: ACCU-CHEK XX SCH ×4 (07:30→21:09)
[2016-07-08] MEDS: SENNA TAB PO SCH (09:25)
[2016-07-08] MEDS: DOCUSATE SODIUM 100 MG CAP PO SCH (09:25)
[2016-07-08] MEDS: FERROUS SULFATE (EC) 325 MG TAB PO SCH (09:25)
[2016-07-08] MEDS: MULTIVIT/MIN/FOLATE/IRON/PREN TAB PO SCH (09:25)
[2016-07-08] MEDS: AL HYDROX/MG HYDROX/SIMETH 30 ML CUP PO PRN (12:39)
--- NOTE | 2016-07-08 15:43 | PN ---
Date/Time of Note Date/Time of Note DATE: 07/08/16 TIME: 15:39 OB Subjective Subjective Subjective Gestational age today 28 weeks 3/7 days ,vital signs stable, afebrile, resting in bed, not complaining of contraction, heart appropriate for gestational age will continue expectant management. VAHID THURMAN MD Jul 08, 2016 15:43
[2016-07-08] MEDS: [UNRECOGNIZED DRUG - OTHER] IM SCH (15:46)
[2016-07-09] MEDS: ACCU-CHEK XX SCH ×4 (09:28→23:30)
[2016-07-09] MEDS: MULTIVIT/MIN/FOLATE/IRON/PREN TAB PO SCH (09:34)
[2016-07-09] MEDS: FERROUS SULFATE (EC) 325 MG TAB PO SCH (09:34)
[2016-07-09] MEDS: DOCUSATE SODIUM 100 MG CAP PO SCH (09:34)
[2016-07-09] MEDS: SENNA TAB PO SCH (09:34)
--- NOTE | 2016-07-09 18:46 | QN ---
Documentation Comment pt doinjg well vss exam wnl ap iup 28 weeks short cervix -stable continue care MOE WEBBER MD Jul 09, 2016 18:46
[2016-07-10] MEDS: ACCU-CHEK XX SCH ×4 (08:00→20:21)
[2016-07-10] MEDS: DOCUSATE SODIUM 100 MG CAP PO SCH (16:39)
[2016-07-10] MEDS: FERROUS SULFATE (EC) 325 MG TAB PO SCH (16:40)
[2016-07-10] MEDS: MULTIVIT/MIN/FOLATE/IRON/PREN TAB PO SCH (16:40)
[2016-07-10] MEDS: SENNA TAB PO SCH (16:40)
--- NOTE | 2016-07-10 18:51 | QN ---
Documentation Comment pt doing well vss exam wnl ap short cervix stable continue care MOE WEBBER MD Jul 10, 2016 18:50
[2016-07-11] MEDS: ACCU-CHEK XX SCH ×4 (07:30→20:08)
[2016-07-11] MEDS: DOCUSATE SODIUM 100 MG CAP PO SCH (09:02)
[2016-07-11] MEDS: SENNA TAB PO SCH (09:02)
[2016-07-11] MEDS: FERROUS SULFATE (EC) 325 MG TAB PO SCH (09:02)
[2016-07-11] MEDS: MULTIVIT/MIN/FOLATE/IRON/PREN TAB PO SCH (09:02)
--- NOTE | 2016-07-11 14:28 | QN ---
Documentation Comment No complaint Afebrile vss Strip Appropriate for GA Continue with present care. SHEKHAR WILD MD Jul 11, 2016 14:27
[2016-07-12] MEDS: ACCU-CHEK XX SCH ×4 (07:58→20:33)
[2016-07-12] MEDS: FERROUS SULFATE (EC) 325 MG TAB PO SCH (09:11)
[2016-07-12] MEDS: DOCUSATE SODIUM 100 MG CAP PO SCH (09:11)
[2016-07-12] MEDS: MULTIVIT/MIN/FOLATE/IRON/PREN TAB PO SCH (09:11)
[2016-07-12] MEDS: SENNA TAB PO SCH (09:11)
[2016-07-12] MEDS: AL HYDROX/MG HYDROX/SIMETH 30 ML CUP PO PRN (12:27)
[2016-07-12] MEDS: ACETAMINOPHEN 325 MG TAB PO PRN (17:27)
--- NOTE | 2016-07-12 20:00 | QN ---
Documentation Comment No complaint. Afebrile VSS Strip Appropriate for GA Continue with in hospital care. SHEKHAR WILD MD Jul 12, 2016 20:00
[2016-07-13] MEDS: ACCU-CHEK XX SCH ×4 (08:59→21:00)
[2016-07-13] MEDS: DOCUSATE SODIUM 100 MG CAP PO SCH (09:06)
[2016-07-13] MEDS: FERROUS SULFATE (EC) 325 MG TAB PO SCH (09:06)
--- NOTE | 2016-07-13 18:24 | QN ---
Documentation Comment No complaint. Afebrile VSS Strip Appropriate for GA Continue with in hospital care. SHEKHAR WILD MD Jul 13, 2016 18:24
[2016-07-13] MEDS: SENNA TAB PO SCH (22:04)
[2016-07-13] MEDS: MULTIVIT/MIN/FOLATE/IRON/PREN TAB PO SCH (22:04)
[2016-07-13] MEDS: ACETAMINOPHEN 325 MG TAB PO PRN (22:04)
[2016-07-14] MEDS: ACCU-CHEK XX SCH ×4 (08:18→21:00)
[2016-07-14] MEDS ORDERED: DIPHTH/TET/ACEL PERTUSS (ADULT) 0.5 ML VIAL IM* ONE (09:00)
[2016-07-14] MEDS: SENNA TAB PO SCH (09:28)
[2016-07-14] MEDS: FERROUS SULFATE (EC) 325 MG TAB PO SCH (09:28)
[2016-07-14] MEDS: DOCUSATE SODIUM 100 MG CAP PO SCH (09:28)
[2016-07-14] MEDS: MULTIVIT/MIN/FOLATE/IRON/PREN TAB PO SCH (09:28)
[2016-07-14] MEDS: AL HYDROX/MG HYDROX/SIMETH 30 ML CUP PO PRN (11:52)
--- NOTE | 2016-07-14 14:39 | QN ---
Documentation Comment No complaint Afebrile VSS Strip Reactive Continue with present care. SHEKHAR WILD MD Jul 14, 2016 14:39
[2016-07-14] MEDS: ACETAMINOPHEN 325 MG TAB PO PRN (17:42)
[2016-07-15] MEDS: ACCU-CHEK XX SCH ×4 (09:00→20:05)
[2016-07-15] MEDS: MULTIVIT/MIN/FOLATE/IRON/PREN TAB PO SCH (09:54)
[2016-07-15] MEDS: DOCUSATE SODIUM 100 MG CAP PO SCH (09:54)
[2016-07-15] MEDS: FERROUS SULFATE (EC) 325 MG TAB PO SCH (09:54)
[2016-07-15] MEDS: SENNA TAB PO SCH (09:55)
[2016-07-15] MEDS: [UNRECOGNIZED DRUG - OTHER] IM SCH ×2 (14:00→14:29)
--- NOTE | 2016-07-15 18:45 | QN ---
Documentation Comment No complaint Afebrile VSS Strip Reactive Continue with present care. SHEKHAR WILD MD Jul 15, 2016 18:44
[2016-07-16] MEDS: ACCU-CHEK XX SCH ×4 (09:00→20:05)
[2016-07-16] MEDS: FERROUS SULFATE (EC) 325 MG TAB PO SCH (09:19)
[2016-07-16] MEDS: MULTIVIT/MIN/FOLATE/IRON/PREN TAB PO SCH (09:19)
[2016-07-16] MEDS: DOCUSATE SODIUM 100 MG CAP PO SCH (09:19)
[2016-07-16] MEDS: SENNA TAB PO SCH (09:19)
--- NOTE | 2016-07-16 19:59 | QN ---
Documentation Comment No complaint Afebrile VSS Strip Reactive Continue with present care. SHEKHAR WILD MD Jul 16, 2016 19:58
[2016-07-17] MEDS: ACCU-CHEK XX SCH ×4 (08:59→20:21)
[2016-07-17] MEDS: DOCUSATE SODIUM 100 MG CAP PO SCH (09:38)
[2016-07-17] MEDS: FERROUS SULFATE (EC) 325 MG TAB PO SCH (09:39)
[2016-07-17] MEDS ORDERED: MULTIVIT/MIN/FOLATE/IRON/PREN TAB PO SCH (18:00)
[2016-07-17] MEDS ORDERED: SENNA TAB PO SCH (18:00)
[2016-07-17] MEDS: ACETAMINOPHEN 325 MG TAB PO PRN (18:10)
--- NOTE | 2016-07-17 20:38 | QN ---
Documentation Comment No complaint Afebrile VSS Strip Reactive Continue with present care. SHEKHAR WILD MD Jul 17, 2016 20:38
[2016-07-18] MEDS: ACCU-CHEK XX SCH ×4 (09:00→19:40)
[2016-07-18] MEDS: FERROUS SULFATE (EC) 325 MG TAB PO SCH (09:24)
[2016-07-18] MEDS: DOCUSATE SODIUM 100 MG CAP PO SCH (09:24)
[2016-07-18] MEDS: ACETAMINOPHEN 325 MG TAB PO PRN (13:07)
--- NOTE | 2016-07-18 13:45 | QN ---
Documentation Comment No complaint. Afebrile VSS Strip Reactive Continue with in hospital care. SHEKHAR WILD MD Jul 18, 2016 13:45
[2016-07-18] MEDS: SENNA TAB PO SCH (21:21)
[2016-07-18] MEDS: MULTIVIT/MIN/FOLATE/IRON/PREN TAB PO SCH (21:21)
[2016-07-19] MEDS: ACCU-CHEK XX SCH ×4 (07:43→20:05)
[2016-07-19] MEDS: FERROUS SULFATE (EC) 325 MG TAB PO SCH (09:39)
[2016-07-19] MEDS: DOCUSATE SODIUM 100 MG CAP PO SCH (09:39)
[2016-07-19] MEDS: ACETAMINOPHEN 325 MG TAB PO PRN (10:11)
--- NOTE | 2016-07-19 19:04 | QN ---
Documentation Comment No complaint Afebrile VSS Strip Reactive Continue with in hospital care. SHEKHAR WILD MD Jul 19, 2016 19:04
[2016-07-19] MEDS: MULTIVIT/MIN/FOLATE/IRON/PREN TAB PO SCH (21:30)
[2016-07-19] MEDS: SENNA TAB PO SCH (21:30)
[2016-07-20] MEDS: ACCU-CHEK XX SCH ×4 (09:02→20:05)
[2016-07-20] MEDS: DOCUSATE SODIUM 100 MG CAP PO SCH (09:46)
[2016-07-20] MEDS: FERROUS SULFATE (EC) 325 MG TAB PO SCH (09:47)
[2016-07-20] MEDS: ACETAMINOPHEN 325 MG TAB PO PRN (14:32)
--- NOTE | 2016-07-20 18:26 | QN ---
Documentation Comment No complaint Afebrile VSS Strip Reactive Continue with in hospital care. SHEKHAR WILD MD Jul 20, 2016 18:26
[2016-07-20] MEDS: SENNA TAB PO SCH (23:50)
[2016-07-20] MEDS: MULTIVIT/MIN/FOLATE/IRON/PREN TAB PO SCH (23:50)
--- NOTE | 2016-07-21 09:01 | QN ---
Documentation Comment No complaint Afebrile VSS Strip Reactive Continue with in hospital care. SHEKHAR WILD MD Jul 21, 2016 09:01
[2016-07-21] MEDS: ACCU-CHEK XX SCH ×4 (09:11→20:57)
[2016-07-21] MEDS: DOCUSATE SODIUM 100 MG CAP PO SCH (09:12)
[2016-07-21] MEDS: FERROUS SULFATE (EC) 325 MG TAB PO SCH (09:13)
[2016-07-21] MEDS: MULTIVIT/MIN/FOLATE/IRON/PREN TAB PO SCH (21:00)
[2016-07-21] MEDS: SENNA TAB PO SCH (21:00)
[2016-07-22] MEDS ORDERED: ACCU-CHEK XX SCH (08:00)
[2016-07-22] MEDS: ACCU-CHEK XX SCH ×4 (10:00→21:01)
[2016-07-22] MEDS: FERROUS SULFATE (EC) 325 MG TAB PO SCH (10:20)
[2016-07-22] MEDS: DOCUSATE SODIUM 100 MG CAP PO SCH (10:20)
[2016-07-22] MEDS: AL HYDROX/MG HYDROX/SIMETH 30 ML CUP PO PRN (12:22)
[2016-07-22] MEDS: [UNRECOGNIZED DRUG - OTHER] IM SCH ×2 (14:00→14:04)
--- NOTE | 2016-07-22 16:02 | QN ---
Documentation Comment No complaint Afebrile VSS Strip Reactive Continue with in hospital care. SHEKHAR WILD MD Jul 22, 2016 16:02
[2016-07-22] MEDS: SENNA TAB PO SCH (21:01)
[2016-07-22] MEDS: MULTIVIT/MIN/FOLATE/IRON/PREN TAB PO SCH (21:01)
[2016-07-23] MEDS: ACCU-CHEK XX SCH ×4 (09:44→21:07)
[2016-07-23] MEDS: FERROUS SULFATE (EC) 325 MG TAB PO SCH (09:49)
[2016-07-23] MEDS: DOCUSATE SODIUM 100 MG CAP PO SCH (09:53)
--- NOTE | 2016-07-23 15:23 | QN ---
Documentation Comment No complaint Afebrile VSS Strip Reactive Continue with in hospital care. SHEKHAR WILD MD Jul 23, 2016 15:23
[2016-07-23] MEDS: MULTIVIT/MIN/FOLATE/IRON/PREN TAB PO SCH (21:07)
[2016-07-23] MEDS: SENNA TAB PO SCH (21:07)
[2016-07-24] MEDS: ACCU-CHEK XX SCH ×4 (09:40→20:06)
[2016-07-24] MEDS: DOCUSATE SODIUM 100 MG CAP PO SCH (09:59)
[2016-07-24] MEDS: FERROUS SULFATE (EC) 325 MG TAB PO SCH (09:59)
[2016-07-24 17:00] VITALS: BMI 36.2
--- NOTE | 2016-07-24 20:15 | QN ---
Documentation Comment No complaint Afebrile VSS Strip Reactive Continue with present care. SHEKHAR WILD MD Jul 24, 2016 20:15
[2016-07-24] MEDS: ACETAMINOPHEN 325 MG TAB PO PRN (21:02)
[2016-07-24] MEDS: SENNA TAB PO SCH (21:02)
[2016-07-24] MEDS: MULTIVIT/MIN/FOLATE/IRON/PREN TAB PO SCH (21:02)
[2016-07-25] MEDS: ACCU-CHEK XX SCH ×4 (07:30→21:06)
[2016-07-25] MEDS: FERROUS SULFATE (EC) 325 MG TAB PO SCH (09:30)
[2016-07-25] MEDS: DOCUSATE SODIUM 100 MG CAP PO SCH (09:31)
[2016-07-25] MEDS ORDERED: MAGNESIUM SULFATE 4 GM/100 ML 100 ML IVPB ONE (20:30)
[2016-07-25] MEDS ORDERED: BETAMET NA PHOS/AC(6 MG/ML) 5ML INJ IM SCH (20:30)
--- NOTE | 2016-07-25 21:39 | RADRPT ---
PROCEDURE: OB ultrasound for biophysical profile CLINICAL INDICATION: Biophysical profile. . TECHNIQUE: Multiple sonographic images of the pelvis were obtained. Transabdominal view of the gr avid uterus are available for review. The images were reviewed on a PACS workstation. COMPARISON: 06/27/2016 FINDINGS: Single intrauterine gestation. Presentation: Cephalic. Partially visualized placenta: Anterior. breathing movement = 2/2 tone = 2/2 motion = 2/2 JODIE = 2/2 JODIE = 9.5 cm heart rate: 148 beats per minute IMPRESSION: Single intrauterine gestation. Biophysical profile 12/05 RPTAT: AADD .Len Mcgrath MD, MD Date Time Electronically viewed and signed by .Len Mcgrath MD, on 07/25/2016 21:39 .B/
--- NOTE | 2016-07-25 21:46 | RADRPT ---
PROCEDURE: Obstetrical ultrasound. CLINICAL INDICATION: , evaluation. Pelvic pain. TECHNIQUE: Transabdominal sonographic images of the pelvis are obtained. COMPARISON: 06/27/2016 FINDINGS: Single intrauterine gestation. There is a cephalic presentation. Measurements were made in order to determine age. The results are as follows: BPD = 8.12 cm HC = 30.03 cm AC = 26.73 cm FL = 5.84 cm Heart rate = 138 beats per minute The placenta is anterior. There is no evidence for an abruption or placenta previa. Ovaries are not visualized. IMPRESSION: Single intrauterine gestation of approximately 31 weeks 6 days by ultrasound criteria. Estimated weight = 1703 g; 46 percentile RPTAT: AADD .Len Mcgrath MD, Date Time Electronically viewed and signed by .Len Mcgrath MD, on 07/25/2016 21:46 .B/
[2016-07-25] MEDS: MULTIVIT/MIN/FOLATE/IRON/PREN TAB PO SCH (21:52)
[2016-07-25] MEDS: BETAMET NA PHOS/AC(6 MG/ML) 5ML INJ IM SCH (21:52)
[2016-07-25] MEDS: SENNA TAB PO SCH (21:52)
[2016-07-25] MEDS: LACTATED RINGER'S 1,000 ML IV SCH (21:53)
[2016-07-25] MEDS: MAGNESIUM SULFATE 20 GM/500 ML 500 ML IV SCH (22:44)
--- NOTE | 2016-07-25 22:47 | QN ---
Documentation Comment Patient had contractios earlier. No complaint now. On exam cervix is dilated 2-3 cm. Will start IV magnesium sulfate. IM betamethasone. SHEKHAR WILD MD Jul 25, 2016 22:46
[2016-07-26] MEDS: LACTATED RINGER'S 1,000 ML IV SCH ×2 (06:10→19:23)
[2016-07-26] MEDS: ACETAMINOPHEN 325 MG TAB PO PRN ×2 (06:14→14:01)
[2016-07-26] MEDS: MAGNESIUM SULFATE 20 GM/500 ML 500 ML IV SCH ×2 (06:49→17:58)
[2016-07-26] MEDS: ACCU-CHEK XX SCH ×4 (09:00→21:08)
[2016-07-26] MEDS: DOCUSATE SODIUM 100 MG CAP PO SCH (10:01)
[2016-07-26] MEDS: FERROUS SULFATE (EC) 325 MG TAB PO SCH (10:01)
[2016-07-26] MEDS: SENNA TAB PO SCH (21:44)
[2016-07-26] MEDS: MULTIVIT/MIN/FOLATE/IRON/PREN TAB PO SCH (21:44)
[2016-07-26] MEDS: BETAMET NA PHOS/AC(6 MG/ML) 5ML INJ IM SCH (21:45)
--- NOTE | 2016-07-26 21:47 | QN ---
Documentation Comment No complaint Afebrile VSS Strip Reactive Continue with IV magnesium sulfate and IM betamethasone. SHEKHAR WILD MD Jul 26, 2016 21:47
[2016-07-26] MEDS ORDERED: DIPHENHYDRAMINE 50 MG CAP PO ONE (22:00)
[2016-07-27] MEDS: MAGNESIUM SULFATE 20 GM/500 ML 500 ML IV SCH ×4 (03:44→23:54)
[2016-07-27] MEDS: ACCU-CHEK XX SCH ×4 (07:30→20:15)
[2016-07-27] MEDS: LACTATED RINGER'S 1,000 ML IV SCH ×2 (07:46→21:18)
[2016-07-27] MEDS: ACETAMINOPHEN 325 MG TAB PO PRN (08:01)
[2016-07-27] MEDS: DOCUSATE SODIUM 100 MG CAP PO SCH (11:23)
[2016-07-27] MEDS: FERROUS SULFATE (EC) 325 MG TAB PO SCH (11:23)
[2016-07-27] MEDS: AL HYDROX/MG HYDROX/SIMETH 30 ML CUP PO PRN (12:24)
--- NOTE | 2016-07-27 15:03 | CONS ---
DATE OF ADMISSION: 06/07/2016 DATE OF CONSULTATION: 07/27/2016 TYPE OF CONSULTATION: HISTORY OF PRESENT ILLNESS: I was asked to perform a consultation for Crystal Little. She was admitted to [facility] on 06/07/2016 with labor as well as cervical sh ortening. She has now received betamethasone for augmentation of lung maturity x2 courses, ma gnesium sulfate as well as multiple doses of antibiotics. She is currently 31-0/7 weeks. I spoke at length with mom regarding complications associated with delivery at 31 weeks gest ational age. Discussed survival data. Discussed morbidities including but not limited to risk of r espiratory distress syndrome requiring chronic ventilator use and oxygen therapy, apnea of prematuri ty, sepsis and necrotizing enterocolitis, as well as intraventricular hemorrhage. Discussed risk fo r possibility of future neurodevelopmental delay including but not limited to autism, learning disab ility, cerebral palsy, as well as attention deficits which are higher in infants born at age . Discussed with mom the importance of provision of breast milk for prevention of some of the above me ntioned morbidities. Mom verbalized understanding of our discussion. Thank you for allowing me to participate in the care of this patient. Should any further problems a rise, please do not hesitate to contact us. Dictated By: COREY HERNANDEZ MD, AM/KRISTINA Conf#: [id number] DID#: [id number]
--- NOTE | 2016-07-27 18:48 | QN ---
Documentation Comment No complaint Afebrile VSS Strip Reactive Continue with IV magnesium sulfate. SHEKHAR WILD MD Jul 27, 2016 18:48
[2016-07-27] MEDS: DIPHENHYDRAMINE 50 MG CAP PO SCH ×2 (21:00→23:56)
[2016-07-27] MEDS: SENNA TAB PO SCH (21:18)
[2016-07-27] MEDS: MULTIVIT/MIN/FOLATE/IRON/PREN TAB PO SCH (21:18)
[2016-07-28] MEDS: ACCU-CHEK XX SCH ×4 (09:00→20:05)
[2016-07-28] MEDS: NIFEdipine 10 MG CAP PO SCH ×3 (09:38→18:47)
[2016-07-28] MEDS: DOCUSATE SODIUM 100 MG CAP PO SCH (09:40)
[2016-07-28] MEDS: FERROUS SULFATE (EC) 325 MG TAB PO SCH (09:40)
[2016-07-28] MEDS: ACETAMINOPHEN 325 MG TAB PO PRN (10:48)
[2016-07-28] MEDS: LACTATED RINGER'S 1,000 ML IV SCH (10:48)
--- NOTE | 2016-07-28 18:36 | QN ---
Documentation Comment no complaint Afebrile VSS Strip Reactive Patient is off magnesium sulfate and on oral nifedipine. SHEKHAR WILD MD Jul 28, 2016 18:36
[2016-07-28] MEDS: SENNA TAB PO SCH (22:42)
[2016-07-28] MEDS: MULTIVIT/MIN/FOLATE/IRON/PREN TAB PO SCH (22:42)
[2016-07-29] MEDS: NIFEdipine 10 MG CAP PO SCH ×4 (00:17→18:08)
[2016-07-29] MEDS: ACCU-CHEK XX SCH ×4 (09:10→21:20)
[2016-07-29] MEDS: DOCUSATE SODIUM 100 MG CAP PO SCH (09:16)
[2016-07-29] MEDS: FERROUS SULFATE (EC) 325 MG TAB PO SCH (09:16)
[2016-07-29] MEDS: ACETAMINOPHEN 325 MG TAB PO PRN (09:25)
[2016-07-29] MEDS: AL HYDROX/MG HYDROX/SIMETH 30 ML CUP PO PRN ×2 (12:36→21:33)
[2016-07-29] MEDS ORDERED: AL HYDROX/MG HYDROX/SIMETH 30 ML CUP PO PRN (13:00)
[2016-07-29] MEDS: [UNRECOGNIZED DRUG - OTHER] IM SCH (15:37)
[2016-07-29] MEDS: DIPHENHYDRAMINE 50 MG CAP PO SCH (20:55)
[2016-07-29] MEDS: MULTIVIT/MIN/FOLATE/IRON/PREN TAB PO SCH (20:55)
[2016-07-29] MEDS: SENNA TAB PO SCH (20:55)
--- NOTE | 2016-07-29 23:43 | QN ---
Documentation Comment No complaint Afebrile VSS Strip Reactive Continue with in hospital care. SHEKHAR WILD MD Jul 29, 2016 23:43
[2016-07-30] MEDS: NIFEdipine 10 MG CAP PO SCH ×4 (00:07→18:03)
[2016-07-30] MEDS: DOCUSATE SODIUM 100 MG CAP PO SCH (09:00)
[2016-07-30] MEDS: ACCU-CHEK XX SCH ×4 (09:15→20:57)
[2016-07-30] MEDS: FERROUS SULFATE (EC) 325 MG TAB PO SCH (09:34)
[2016-07-30] MEDS: AL HYDROX/MG HYDROX/SIMETH 30 ML CUP PO PRN (09:35)
[2016-07-30] MEDS: ACETAMINOPHEN 325 MG TAB PO PRN (12:46)
--- NOTE | 2016-07-30 18:19 | QN ---
Documentation Comment No complaint Afebrile VSS Strip Reactive Continue with present care. SHEKHAR WILD MD Jul 30, 2016 18:19
[2016-07-30] MEDS: DIPHENHYDRAMINE 50 MG CAP PO SCH (21:00)
[2016-07-30] MEDS: SENNA TAB PO SCH (22:12)
[2016-07-30] MEDS: MULTIVIT/MIN/FOLATE/IRON/PREN TAB PO SCH (22:12)
[2016-07-31] MEDS: NIFEdipine 10 MG CAP PO SCH ×4 (00:43→17:41)
[2016-07-31] MEDS: ACCU-CHEK XX SCH ×4 (08:06→20:54)
[2016-07-31] MEDS: DOCUSATE SODIUM 100 MG CAP PO SCH (09:39)
[2016-07-31] MEDS: FERROUS SULFATE (EC) 325 MG TAB PO SCH (09:39)
--- NOTE | 2016-07-31 19:36 | QN ---
Documentation Comment No complaint Afebrile VSS Strip Reactive Continue with present care. SHEKHAR WILD MD Jul 31, 2016 19:36
[2016-07-31] MEDS ORDERED: DIBUCAINE 1% 30 GM OINT TOP PRN (20:30)
[2016-07-31] MEDS: SENNA TAB PO SCH (20:54)
[2016-07-31] MEDS: MULTIVIT/MIN/FOLATE/IRON/PREN TAB PO SCH (20:54)
[2016-07-31] MEDS: WITCH HAZEL/GLYCERIN PAD PR PRN (20:55)
[2016-07-31] MEDS: DIPHENHYDRAMINE 50 MG CAP PO SCH (21:00)
[2016-08-01] MEDS: NIFEdipine 10 MG CAP PO SCH ×5 (00:10→23:35)
[2016-08-01] MEDS: ACCU-CHEK XX SCH ×4 (09:00→20:05)
[2016-08-01] MEDS: DOCUSATE SODIUM 100 MG CAP PO SCH (09:31)
[2016-08-01] MEDS: FERROUS SULFATE (EC) 325 MG TAB PO SCH (09:31)
[2016-08-01] MEDS: AL HYDROX/MG HYDROX/SIMETH 30 ML CUP PO PRN (10:36)
[2016-08-01] MEDS: DIPHENHYDRAMINE 50 MG CAP PO SCH (21:00)
[2016-08-01] MEDS: SENNA TAB PO SCH (21:33)
[2016-08-01] MEDS: MULTIVIT/MIN/FOLATE/IRON/PREN TAB PO SCH (21:33)
[2016-08-02] MEDS: NIFEdipine 10 MG CAP PO SCH ×4 (06:13→23:58)
[2016-08-02] MEDS: ACCU-CHEK XX SCH ×4 (09:00→21:10)
[2016-08-02] MEDS: DOCUSATE SODIUM 100 MG CAP PO SCH (10:20)
[2016-08-02] MEDS: FERROUS SULFATE (EC) 325 MG TAB PO SCH (10:20)
[2016-08-02] MEDS: AL HYDROX/MG HYDROX/SIMETH 30 ML CUP PO PRN (10:20)
--- NOTE | 2016-08-02 20:38 | QN ---
Documentation Comment No complaint Afebrile VSS Strip Reactive Continue [facility] care. SHEKHAR WILD MD Aug 02, 2016 20:38
[2016-08-02] MEDS: DIPHENHYDRAMINE 50 MG CAP PO SCH (21:00)
[2016-08-02] MEDS: SENNA TAB PO SCH (21:01)
[2016-08-02] MEDS: MULTIVIT/MIN/FOLATE/IRON/PREN TAB PO SCH (21:01)
[2016-08-03] MEDS: NIFEdipine 10 MG CAP PO SCH ×3 (06:08→18:01)
[2016-08-03] MEDS: ACCU-CHEK XX SCH ×4 (09:20→20:05)
[2016-08-03] MEDS: FERROUS SULFATE (EC) 325 MG TAB PO SCH (09:22)
[2016-08-03] MEDS: DOCUSATE SODIUM 100 MG CAP PO SCH (09:22)
[2016-08-03] MEDS: ACETAMINOPHEN 325 MG TAB PO PRN (13:14)
[2016-08-03] MEDS: AL HYDROX/MG HYDROX/SIMETH 30 ML CUP PO PRN (16:07)
--- NOTE | 2016-08-03 19:06 | QN ---
Documentation Comment No complaint Afebrile VSS Strip Reactive Continue with present care. SHEKHAR WILD MD Aug 03, 2016 19:06
[2016-08-03] MEDS: DIPHENHYDRAMINE 50 MG CAP PO SCH (21:00)
[2016-08-03] MEDS: MULTIVIT/MIN/FOLATE/IRON/PREN TAB PO SCH (21:27)
[2016-08-03] MEDS: SENNA TAB PO SCH (21:27)
[2016-08-04] MEDS: NIFEdipine 10 MG CAP PO SCH ×5 (00:09→23:49)
[2016-08-04] MEDS: ACCU-CHEK XX SCH ×4 (08:24→21:20)
[2016-08-04] MEDS: DOCUSATE SODIUM 100 MG CAP PO SCH (09:19)
[2016-08-04] MEDS: FERROUS SULFATE (EC) 325 MG TAB PO SCH (09:19)
[2016-08-04] MEDS: AL HYDROX/MG HYDROX/SIMETH 30 ML CUP PO PRN (13:02)
--- NOTE | 2016-08-04 13:50 | QN ---
Documentation Comment No complaint Afebrile VSS Strip Reactive Continue with present care. SHEKHAR WILD MD Aug 04, 2016 13:50
[2016-08-04] MEDS: SENNA TAB PO SCH (21:22)
[2016-08-04] MEDS: MULTIVIT/MIN/FOLATE/IRON/PREN TAB PO SCH (21:22)
[2016-08-04] MEDS: DIPHENHYDRAMINE 50 MG CAP PO SCH (21:22)
[2016-08-05] MEDS: NIFEdipine 10 MG CAP PO SCH ×4 (06:20→23:51)
[2016-08-05] MEDS: ACCU-CHEK XX SCH ×4 (08:50→21:10)
[2016-08-05] MEDS: DOCUSATE SODIUM 100 MG CAP PO SCH (08:52)
[2016-08-05] MEDS: FERROUS SULFATE (EC) 325 MG TAB PO SCH (08:52)
--- NOTE | 2016-08-05 13:47 | QN ---
Documentation Comment No complaint Afebrile VSS Strip Reactive Continue with in hospital care. SHEKHAR WILD MD Aug 05, 2016 13:47
[2016-08-05] MEDS: [UNRECOGNIZED DRUG - OTHER] IM SCH (14:01)
--- NOTE | 2016-08-05 14:56 | PERINOTE ---
Date/Time of Note Date/Time of Note DATE: 08/05/16 TIME: 14:47 Assessment/Recommendations Other Assessments IUP at 32+ weeks GA with a prior finding of a short cervix. On admission the cervix was reported to be 1 cm long, most recent exam is reported to be 90% effaced and 2 cm dilated. Patient is status post betamethasone administration. Recommendations: Given this patient's relative stability and good growth, I would consider discharge home at 34 weeks GA on reduced activity. OB Subjective Free Text/Dictaton Patient admitted for short cervix (1cm) on 06/07/16. Most recent US on 07/25 revealed EFW of 1703. Patient with a prior history of a delivery at 23 weeks ( ). Patient also with GDM class A1, currently well controlled. HD# 60 IUP @ 32W3D Complaints/Overnight events None Current Medications Current Medications Ferrous Sulfate (Ferrous Sulfate (Ec)) 325 mg DAILY PO Last administered on 08/05 08:52; Admin Dose 325 MG; Start 06/08/16 at 09:00 Docusate Sodium (Colace) 100 mg DAILY PO Last administered on 08/05/16 08:52; Admin Dose 100 MG; Start 06/08/16 at 09:00 Acetaminophen (Tylenol Tab) 650 mg Q4H PRN PO PAIN AND OR ELEVATED TEMP Last administered on 08/03/16 13:14; Admin Dose 650 MG; Start 06/07/16 at 14:00 Al Hydrox/Mg Hydrox/Simethicone (Mag-Al Plus) 30 ml Q6H PRN PO GASTROINTESTINAL UPSET Last administered on 08/04/16 13:02; Admin Dose 30 ML; Start 06/07/16 at 14:00 Ondansetron HCl (Zofran Inj) 4 mg Q6H PRN IV NAUSEA AND/OR VOMITING; Start 06/07 at 14:00 Non-Formulary Medication ADMINISTER 1ML (250MG) INTRAMUSCULA... Sa@14 IM Last administered on 08/05/16 14:01; Admin Dose 250 EA; Start 06/10/16 at 14:00 Witch Shereen/ Glycerin (Tucks Pads) 1 pad PRN PRN [place] HEMORRHOID/EPISIOTMY PAIN Last administered on 07/31/16 20:55; Admin Dose 40 PAD; Start 06/10/16 at 21:00 Witch Shereen/ Glycerin (Tucks Pads) 1 pad PRN PRN [place] HEMORROID PAIN/ITCHING; Start 06/23/16 at 16:00 Prenat Multivit/ [place]/Iron/Folic Ac ( S) 1 tab DAILY@21 PO Last administered on 08/04/16 21:22; Admin Dose 1 TAB; Start 07/18/16 at 21:00 Senna (Senokot) 1 tab DAILY@21 PO Last administered on 08/04/16 21:22; Admin Dose 1 TAB; Start 07/18/16 at 21:00 Diagnostic Test (Pha) (Accu-Chek) 1 ea FBSPP XX Last administered on 08/05/16 11:45; Admin Dose 1 EA; Start 07/22/16 at 08:00 Nifedipine (Procardia) 20 mg Q6 PO Last administered on 08/05/16 12:03; Admin Dose 20 MG; Start 07/28/16 at 09:30 Dibucaine (Nupercainal) 1 applic TID PRN TOP HEMORRHOID/EPISIOTMY PAIN Last administered on 07/31/16 20:55; Admin Dose 30 APPLIC; Start 07/31/16 at 20:30 Diphenhydramine HCl (Benadryl) 50 mg HS PRN PO INSOMNIA; Start 08/05/16 at 21:00 Past Medical History Medical History: no pertinent history Surgical History: no surgical history 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 Para: 1 : 2 LMP (Females 10-50): Family History Significant Family History: diabetes OB Admission Exam Physical Exam Vitals: Stable Abdomen: WNL Heart Rate: 140's Accelerations: Accelerations Present Decelerations: No Decelerations Varibility: Moderate Contractions on Admission: None Last 72 hourBlood Glucose Bedside Glucose - 72 Hours Test 08/02/16 16:03 08/02/16 21:10 08/03/16 09:19 08/03/16 11:19 Bedside Glucose 134mg/dL (70-220) 80mg/dL (70-220) 72mg/dL (70-220) 86mg/dL (70-220) Test 08/03/16 16:01 08/03/16 20:50 08/04/16 09:18 08/04/16 11:46 Bedside Glucose 105mg/dL (70-220) 112mg/dL (70-220) 78mg/dL (70-220) 82mg/dL (70-220) Test 08/04/16 15:58 08/04/16 21:21 08/05/16 08:48 08/05/16 11:51 Bedside Glucose 83mg/dL (70-220) 91mg/dL (70-220) 78mg/dL (70-220) 86mg/dL (70-220) Copies To: CC: SHEKHAR WILD MD, MARIE H MD Aug 05, 2016 14:56
[2016-08-05] MEDS ORDERED: DIPHENHYDRAMINE 50 MG CAP PO PRN (21:00)
[2016-08-05] MEDS: SENNA TAB PO SCH (21:11)
[2016-08-05] MEDS: MULTIVIT/MIN/FOLATE/IRON/PREN TAB PO SCH (21:11)
[2016-08-06] MEDS: NIFEdipine 10 MG CAP PO SCH ×3 (05:57→18:06)
[2016-08-06] MEDS: ACCU-CHEK XX SCH ×4 (09:55→21:57)
[2016-08-06] MEDS: FERROUS SULFATE (EC) 325 MG TAB PO SCH (09:59)
[2016-08-06] MEDS: DOCUSATE SODIUM 100 MG CAP PO SCH (09:59)
[2016-08-06 11:19] VITALS: Ht 167.6 cm; Wt 101.4 kg
[2016-08-06] MEDS: AL HYDROX/MG HYDROX/SIMETH 30 ML CUP PO PRN ×2 (11:38→19:33)
--- NOTE | 2016-08-06 16:17 | QN ---
Documentation Comment No complaint Afebrile VSS Strip Reactive Continue with in hospital care. SHEKHAR WILD MD Aug 06, 2016 16:17
[2016-08-06] MEDS: MULTIVIT/MIN/FOLATE/IRON/PREN TAB PO SCH (21:03)
[2016-08-06] MEDS: SENNA TAB PO SCH (21:03)
[2016-08-07] MEDS: NIFEdipine 10 MG CAP PO SCH ×5 (00:07→23:48)
[2016-08-07] MEDS: ACCU-CHEK XX SCH ×4 (08:21→21:57)
[2016-08-07] MEDS: FERROUS SULFATE (EC) 325 MG TAB PO SCH (08:56)
[2016-08-07] MEDS: DOCUSATE SODIUM 100 MG CAP PO SCH (08:56)
[2016-08-07] MEDS: ACETAMINOPHEN 325 MG TAB PO PRN (12:44)
--- NOTE | 2016-08-07 19:08 | QN ---
Documentation Comment No complaint Afebrile VSS Strip Reactive Continue with present care. SHEKHAR WILD MD Aug 07, 2016 19:08
[2016-08-07] MEDS: MULTIVIT/MIN/FOLATE/IRON/PREN TAB PO SCH (22:00)
[2016-08-07] MEDS: SENNA TAB PO SCH (22:01)
[2016-08-08] MEDS: NIFEdipine 10 MG CAP PO SCH ×3 (05:43→17:33)
[2016-08-08] MEDS: ACCU-CHEK XX SCH ×4 (08:46→20:05)
[2016-08-08] MEDS: FERROUS SULFATE (EC) 325 MG TAB PO SCH (09:07)
[2016-08-08] MEDS: DOCUSATE SODIUM 100 MG CAP PO SCH (09:07)
--- NOTE | 2016-08-08 14:48 | QN ---
Documentation Comment No complaint Afebrile VSS Strip Reactive Continue with present care. SHEKHAR WILD MD Aug 08, 2016 14:47
[2016-08-08] MEDS: MULTIVIT/MIN/FOLATE/IRON/PREN TAB PO SCH (21:05)
[2016-08-08] MEDS: SENNA TAB PO SCH (21:05)
[2016-08-09] MEDS: NIFEdipine 10 MG CAP PO SCH ×5 (00:01→23:55)
[2016-08-09] MEDS: ACCU-CHEK XX SCH ×3 (10:00→22:14)
[2016-08-09] MEDS: FERROUS SULFATE (EC) 325 MG TAB PO SCH (10:08)
[2016-08-09] MEDS: DOCUSATE SODIUM 100 MG CAP PO SCH (10:08)
--- NOTE | 2016-08-09 19:19 | QN ---
Documentation Comment no complaint Afebrile VSS strip Reactive Continue with present care. SHEKHAR WILD MD Aug 09, 2016 19:19
[2016-08-09] MEDS: MULTIVIT/MIN/FOLATE/IRON/PREN TAB PO SCH (20:56)
[2016-08-09] MEDS: SENNA TAB PO SCH (20:56)
[2016-08-10] MEDS: NIFEdipine 10 MG CAP PO SCH ×4 (05:29→23:54)
[2016-08-10] MEDS: ACCU-CHEK XX SCH ×4 (08:00→15:30)
[2016-08-10] MEDS: DOCUSATE SODIUM 100 MG CAP PO SCH (10:48)
[2016-08-10] MEDS: FERROUS SULFATE (EC) 325 MG TAB PO SCH (10:48)
--- NOTE | 2016-08-10 11:50 | CONS ---
Date/Time of Note Date/Time of Note DATE: 08/10/16 TIME: 11:43 Consultation Date/Type/Reason Admit Date/Time August 10, 2006 Hospital consult and visit This patient is a 20 years old 2 para 1 who lost her first at 22 weeks During this she has been seen about 2 months ago due to premature contractions and short cervix. when she was admitted on May she was given cortisone ,Mag sulphate and antibiotic. She is now 34 weeks and 1 day ,her cervical length was 2 cm with 90% effacement and -4 station yesterday. On examination today, she is fairly comfortable, very rare contractions, heart tone is normal On physical exam ,her ear nose throat appears to be normal. Neck is normal no neck vein distention no thyromegaly no lymph node enlargement anywhere in the body Her chest is clear. heart normal sinus rhythm no murmur Abdomen is soft ,Fundus measures about 30 cm . heart tone is normal no deceleration , fairly good variability. No CVA tenderness Pelvic exam was not performed today. No ankle edema ,knee-jerk reflexes 1+ normal Laboratory Tests Test 08/09/16 11:55 08/09/16 15:50 08/09/16 22:13 08/10/16 08:20 Bedside Glucose 81mg/dL 95mg/dL 131mg/dL 75mg/dL Test 08/10/16 11:18 Bedside Glucose 86mg/dL Current Medications Medications (Trade) Dose Ordered Sig/Maximiliano Route PRN Reason Start Time Stop Time Status Last Admin Dose Admin Lactated Ringer's 1,000 ml @ 75 mls/hr [id number] IV 06/07/16 13:39 06/17/16 15:41 DC 06/17/16 11:29 75 MLS/HR Magnesium Sulfate (Magnesium Sulfate 4 Gm/100 ml) 100 ml @ 200 mls/hr ONCE ONCE IV 06/07/16 14:00 06/07/16 14:29 DC 06/07/16 14:10 200 MLS/HR Betamethasone Acet/Betameth SodPhos 12 mg 12 mg Q24H IM 06/07/16 14:00 06/08/16 14:01 DC 06/08/16 14:11 12 MG Ampicillin 100 ml @ 100 mls/hr ONCE ONCE IV 06/07/16 14:00 06/07/16 15:01 DC 06/07/16 14:12 100 MLS/HR Ampicillin (Ampicillin 1 Gm/ NS (Pmx)) 50 ml @ 100 mls/hr Q4H IV 06/07/16 18:00 06/08/16 18:30 DC 06/08/16 17:26 100 MLS/HR Prenat Multivit/ [employer] [place]/Iron/Folic Ac ( S) 1 tab DAILY PO 06/08/16 09:00 07/17/16 09:48 DC 07/16/16 09:19 1 TAB Ferrous Sulfate (Ferrous Sulfate (Ec)) 325 mg DAILY PO 06/08/16 09:00 08/10/16 10:48 325 MG Docusate Sodium (Colace) 100 mg DAILY PO 06/08/16 09:00 08/10/16 10:48 100 MG Acetaminophen (Tylenol Tab) 650 mg Q4H PRN PO PAIN AND OR ELEVATED TEMP 06/07/16 14:00 08/07/16 12:44 650 MG Al Hydrox/Mg Hydrox/Simethicone (Mag-Al Plus) 30 ml Q6H PRN PO GASTROINTESTINAL UPSET 06/07/16 14:00 08/06/16 19:33 30 ML Ondansetron HCl 4 mg 4 mg Q6H PRN IV NAUSEA AND/OR VOMITING 06/07/16 14:00 Magnesium Sulfate 500 ml @ 50 mls/hr Q10H IV 06/07/16 14:04 06/11/16 13:48 DC 06/10/16 03:42 50 MLS/HR Ampicillin 100 ml @ 100 mls/hr Q6 IVPB 06/08/16 18:30 06/08/16 18:33 DC Ampicillin 100 ml @ 100 mls/hr Q6 IVPB 06/09/16 00:00 06/17/16 15:41 DC 06/17/16 11:29 100 MLS/HR Ampicillin (Ampicillin 1 Gm/ NS (Pmx)) 50 ml @ 100 mls/hr ONCE IV 06/08/16 18:45 06/08/16 19:30 DC 06/08/16 18:44 100 MLS/HR Non-Formulary Medication ADMINISTER 1ML (250MG) INTRAMUSCULA... Sa@14 IM 06/10/16 14:00 08/05/16 14:01 250 EA Senna (Senokot) 2 tab ONCE ONCE PO 06/10/16 21:00 06/11/16 13:51 DC 06/10/16 21:44 2 TAB [place]reen/ Glycerin (Tucks Pads) 1 pad PRN PRN [place] HEMORRHOID/EPISIOTMY PAIN 06/10/16 21:00 07/31/16 20:55 40 PAD Senna (Senokot) 1 tab DAILY PO 06/14/16 09:00 07/17/16 09:49 DC 07/16/16 09:19 1 TAB [place]/ Glycerin (Tucks Pads) 1 pad PRN PRN [place] HEMORROID PAIN/ITCHING 06/23/16 16:00 Pantoprazole (Protonix Tab) 40 mg ONCE ONCE PO 06/27/16 10:30 06/28/16 09:29 DC 06/27/16 11:32 40 MG Pantoprazole (Protonix Tab) 40 mg DAILY@06 PO 06/28/16 09:00 06/28/16 09:31 DC 06/28/16 09:23 40 MG Diagnostic Test (Pha) (Accu-Chek) 1 ea FBSPP XX 07/01/16 07:30 07/22/16 07:48 DC 07/21/16 20:57 1 EA Diphtheria/ Tetanus/Acell Pertussis (Adacel) 0.5 ml ONCE ONCE IM* 07/05/16 14:00 07/05/16 14:01 DC Influenza Virus Vaccine (Fluzone) 0.5 ml ONCE ONCE IM* 07/05/16 13:00 07/05/16 14:39 DC Diphtheria/ Tetanus/Acell Pertussis (Adacel) 0.5 ml ONCE ONCE IM* 07/14/16 09:00 07/14/16 09:01 DC 07/14/16 11:31 0.5 ML Prenat Multivit/ [place]/Iron/Folic Ac ( S) 1 tab DAILY@18 PO 07/17/16 18:00 07/18/16 00:06 DC 07/17/16 22:06 1 TAB Senna (Senokot) 1 tab DAILY@18 PO 07/17/16 18:00 07/18/16 00:06 DC 07/17/16 22:06 1 TAB Prenat Multivit/ [place]/Iron/Folic Ac ( S) 1 tab DAILY@21 PO 07/18/16 21:00 08/09/16 20:56 1 TAB Senna (Senokot) 1 tab DAILY@21 PO 07/18/16 21:00 08/09/16 20:56 1 TAB Diagnostic Test (Pha) (Accu-Chek) 1 ea Q2 XX 07/22/16 08:00 07/22/16 08:00 DC Diagnostic Test (Pha) 1 ea 1 ea FBSPP XX 07/22/16 08:00 08/09/16 22:14 1 EA Magnesium Sulfate 100 ml @ 200 mls/hr ONCE ONCE IVPB 07/25/16 20:30 07/25/16 20:59 DC 07/25/16 21:57 200 MLS/HR Magnesium Sulfate (Magnesium Sulfate 20 Gm/500 ml) 500 ml @ 50 mls/hr Q10H IV 07/25/16 20:30 07/28/16 09:26 DC 07/27/16 23:54 50 MLS/HR Betamethasone Acet/Betameth SodPhos 12 mg 12 mg DAILY IM 07/25/16 20:30 07/25/16 21:17 DC Lactated Ringer's (Lr) 1,000 ml @ 75 mls/hr [id number] IV 07/25/16 21:00 07/28/16 18:42 DC 07/28/16 10:48 75 MLS/HR Betamethasone Acet/Betameth SodPhos (Celestone Soluspan) 12 mg Q24H IM 07/25/16 21:30 07/26/16 21:31 DC 07/26/16 21:45 12 MG Diphenhydramine HCl (Benadryl) 50 mg ONCE ONCE PO 07/26/16 22:00 07/26/16 22:01 DC 07/26/16 23:17 50 MG Diphenhydramine HCl (Benadryl) 50 mg HS PO 07/27/16 21:00 08/04/16 22:12 DC 08/04/16 21:22 50 MG Nifedipine (Procardia) 20 mg Q6 PO 07/28/16 09:30 08/10/16 11:37 20 MG Al Hydrox/Mg Hydrox/Simethicone (Mag-Al Plus) 30 ml Q4H PRN PO GASTROINTESTINAL UPSET 07/29/16 13:00 07/29/16 13:00 DC Dibucaine (Nupercainal) 1 applic TID PRN TOP HEMORRHOID/EPISIOTMY PAIN 07/31/16 20:30 07/31/16 20:55 30 APPLIC Diphenhydramine HCl (Benadryl) 50 mg HS PRN PO INSOMNIA 08/05/16 21:00 Reason for Consultation History of loss at second trimester Short cervix Laboratory Tests Test 08/09/16 11:55 08/09/16 15:50 08/09/16 22:13 08/10/16 08:20 Bedside Glucose 81mg/dL 95mg/dL 131mg/dL 75mg/dL Test 08/10/16 11:18 Bedside Glucose 86mg/dL Current Medications Medications (Trade) Dose Ordered Sig/Maximiliano Route PRN Reason Start Time Stop Time Status Last Admin Dose Admin Lactated Ringer's 1,000 ml @ 75 mls/hr [id number] IV 06/07/16 13:39 06/17/16 15:41 DC 06/17/16 11:29 75 MLS/HR Magnesium Sulfate (Magnesium Sulfate 4 Gm/100 ml) 100 ml @ 200 mls/hr ONCE ONCE IV 06/07/16 14:00 06/07/16 14:29 DC 06/07/16 14:10 200 MLS/HR Betamethasone Acet/Betameth SodPhos 12 mg 12 mg Q24H IM 06/07/16 14:00 06/08/16 14:01 DC 06/08/16 14:11 12 MG Ampicillin 100 ml @ 100 mls/hr ONCE ONCE IV 06/07/16 14:00 06/07/16 15:01 DC 06/07/16 14:12 100 MLS/HR Ampicillin (Ampicillin 1 Gm/ NS (Pmx)) 50 ml @ 100 mls/hr Q4H IV 06/07/16 18:00 06/08/16 18:30 DC 06/08/16 17:26 100 MLS/HR Prenat Multivit/ [place]/Iron/Folic Ac ( S) 1 tab DAILY PO 06/08/16 09:00 07/17/16 09:48 DC 07/16/16 09:19 1 TAB Ferrous Sulfate (Ferrous Sulfate (Ec)) 325 mg DAILY PO 06/08/16 09:00 08/10/16 10:48 325 MG Docusate Sodium (Colace) 100 mg DAILY PO 06/08/16 09:00 08/10/16 10:48 100 MG Acetaminophen (Tylenol Tab) 650 mg Q4H PRN PO PAIN AND OR ELEVATED TEMP 06/07/16 14:00 08/07/16 12:44 650 MG Al Hydrox/Mg Hydrox/Simethicone (Mag-Al Plus) 30 ml Q6H PRN PO GASTROINTESTINAL UPSET 06/07/16 14:00 08/06/16 19:33 30 ML Ondansetron HCl 4 mg 4 mg Q6H PRN IV NAUSEA AND/OR VOMITING 06/07/16 14:00 Magnesium Sulfate 500 ml @ 50 mls/hr Q10H IV 06/07/16 14:04 06/11/16 13:48 DC 06/10/16 03:42 50 MLS/HR Ampicillin 100 ml @ 100 mls/hr Q6 IVPB 06/08/16 18:30 06/08/16 18:33 DC Ampicillin 100 ml @ 100 mls/hr Q6 IVPB 06/09/16 00:00 06/17/16 15:41 DC 06/17/16 11:29 100 MLS/HR Ampicillin (Ampicillin 1 Gm/ NS (Pmx)) 50 ml @ 100 mls/hr ONCE IV 06/08/16 18:45 06/08/16 19:30 DC 06/08/16 18:44 100 MLS/HR Non-Formulary Medication ADMINISTER 1ML (250MG) INTRAMUSCULA... Sa@14 IM 06/10/16 14:00 08/05/16 14:01 250 EA Senna (Senokot) 2 tab ONCE ONCE PO 06/10/16 21:00 06/11/16 13:51 DC 06/10/16 21:44 2 TAB [place]/ Glycerin (Tucks Pads) 1 pad PRN PRN DC HEMORRHOID/EPISIOTMY PAIN 06/10/16 21:00 07/31/16 20:55 40 PAD Senna (Senokot) 1 tab DAILY PO 06/14/16 09:00 07/17/16 09:49 DC 07/16/16 09:19 1 TAB [place]/ Glycerin (Tucks Pads) 1 pad PRN PRN DC HEMORROID PAIN/ITCHING 06/23/16 16:00 Pantoprazole (Protonix Tab) 40 mg ONCE ONCE PO 06/27/16 10:30 06/28/16 09:29 DC 06/27/16 11:32 40 MG Pantoprazole (Protonix Tab) 40 mg DAILY@06 PO 06/28/16 09:00 06/28/16 09:31 DC 06/28/16 09:23 40 MG Diagnostic Test (Pha) (Accu-Chek) 1 ea FBSPP XX 07/01/16 07:30 07/22/16 07:48 DC 07/21/16 20:57 1 EA Diphtheria/ Tetanus/Acell Pertussis (Adacel) 0.5 ml ONCE ONCE IM* 07/05/16 14:00 07/05/16 14:01 DC Influenza Virus Vaccine (Fluzone) 0.5 ml ONCE ONCE IM* 07/05/16 13:00 07/05/16 14:39 DC Diphtheria/ Tetanus/Acell Pertussis (Adacel) 0.5 ml ONCE ONCE IM* 07/14/16 09:00 07/14/16 09:01 DC 07/14/16 11:31 0.5 ML Prenat Multivit/ [place]/Iron/Folic Ac ( S) 1 tab DAILY@18 PO 07/17/16 18:00 07/18/16 00:06 DC 07/17/16 22:06 1 TAB Senna (Senokot) 1 tab DAILY@18 PO 07/17/16 18:00 07/18/16 00:06 DC 07/17/16 22:06 1 TAB Prenat Multivit/ [place]/Iron/Folic Ac ( S) 1 tab DAILY@21 PO 07/18/16 21:00 08/09/16 20:56 1 TAB Senna (Senokot) 1 tab DAILY@21 PO 07/18/16 21:00 08/09/16 20:56 1 TAB Diagnostic Test (Pha) (Accu-Chek) 1 ea Q2 XX 07/22/16 08:00 07/22/16 08:00 DC Diagnostic Test (Pha) 1 ea 1 ea FBSPP XX 07/22/16 08:00 08/09/16 22:14 1 EA Magnesium Sulfate 100 ml @ 200 mls/hr ONCE ONCE IVPB 3/28/17 20:30 07/25/16 20:59 DC 07/25/16 21:57 200 MLS/HR Magnesium Sulfate (Magnesium Sulfate 20 Gm/500 ml) 500 ml @ 50 mls/hr Q10H IV 07/25/16 20:30 07/28/16 09:26 DC 07/27/16 23:54 50 MLS/HR Betamethasone Acet/Betameth SodPhos 12 mg 12 mg DAILY IM 07/25/16 20:30 07/25/16 21:17 DC Lactated Ringer's (Lr) 1,000 ml @ 75 mls/hr [id number] IV 07/25/16 21:00 07/28/16 18:42 DC 07/28/16 10:48 75 MLS/HR Betamethasone Acet/Betameth SodPhos (Celestone Soluspan) 12 mg Q24H IM 07/25/16 21:30 07/26/16 21:31 DC 07/26/16 21:45 12 MG Diphenhydramine HCl (Benadryl) 50 mg ONCE ONCE PO 07/26/16 22:00 07/26/16 22:01 DC 07/26/16 23:17 50 MG Diphenhydramine HCl (Benadryl) 50 mg HS PO 07/27/16 21:00 08/04/16 22:12 DC 08/04/16 21:22 50 MG Nifedipine (Procardia) 20 mg Q6 PO 07/28/16 09:30 08/10/16 11:37 20 MG Al Hydrox/Mg Hydrox/Simethicone (Mag-Al Plus) 30 ml Q4H PRN PO GASTROINTESTINAL UPSET 07/29/16 13:00 07/29/16 13:00 DC Dibucaine (Nupercainal) 1 applic TID PRN TOP HEMORRHOID/EPISIOTMY PAIN 07/31/16 20:30 07/31/16 20:55 30 APPLIC Diphenhydramine HCl (Benadryl) 50 mg HS PRN PO INSOMNIA 08/05/16 21:00 Constitutional: No chills, No diaphoresis, No disoriented, No febrile, No improved, No no complaints, No other, No poor po, No requiring IVF, No requiring O2 Eyes: No discharge, No no complaints, No other, No pain, No redness, No visual change ENT: No bleeding, No congestion, No discharge, No dysphagia, No no complaints, No other, No pain, No sore throat Respiratory: No cough, No no complaints, No other, No pain, No pleuritic pain, No shortness of breath, No sputum, No wheezing Cardiovascular: No chest pain, No edema, No lightheadedness, No no complaints, No orthopenea, No other, No palpitations, No paroxysmal nocturnal dyspnea Gastrointestinal: No blood, No constipation, No decreased appetite, No diarrhea , No flatus, No nausea, No no complaints, No other, No pain, No passing stool, No vomiting Genitourinary: other (Cervix is about 2 cm in length), No bleeding, No discharge, No dysuria, No flank pain, No hematuria, No no complaints Musculoskeletal: No back pain, No bone/joint pain, No neck pain, No no complaints, No other, No restricted range of motion, No swelling Skin: No bruising, No erythema, No laceration, No no complaints, No other, No pruritis, No rash, No skin lesions Neurologic: No confusion, No dizziness, No focal-weakness, No headache, No no complaints, No other, No seizure, No syncope Endocrine: No dry skin, No no complaints, No other, No polydypsia, No polyuria , No temp intolerance Past Medical History Medical History: no pertinent history Social History Smoking Status: Never smoker Exam/Review of Systems Results Results 24 hrs Laboratory Tests Test 08/09/16 11:55 08/09/16 15:50 08/09/16 22:13 08/10/16 08:20 Bedside Glucose 81 95 131 75 Test 08/10/16 11:18 Bedside Glucose 86 Medications Medications Current Medications Ferrous Sulfate (Ferrous Sulfate (Ec)) 325 mg DAILY PO Last administered on 10:48; Admin Dose 325 MG; Start 06/08/16 at 09:00 Docusate Sodium (Colace) 100 mg DAILY PO Last administered on 08/10/16 10:48; Admin Dose 100 MG; Start 06/08/16 at 09:00 Acetaminophen (Tylenol Tab) 650 mg Q4H PRN PO PAIN AND OR ELEVATED TEMP Last administered on 08/07/16 12:44; Admin Dose 650 MG; Start 06/07/16 at 14:00 Al Hydrox/Mg Hydrox/Simethicone (Mag-Al Plus) 30 ml Q6H PRN PO GASTROINTESTINAL UPSET Last administered on 08/06/16 19:33; Admin Dose 30 ML; Start 06/07/16 at 14:00 Ondansetron HCl (Zofran Inj) 4 mg Q6H PRN IV NAUSEA AND/OR VOMITING; Start 06/07 at 14:00 Non-Formulary Medication ADMINISTER 1ML (250MG) INTRAMUSCULA... Sa@14 IM Last administered on 08/05/16 14:01; Admin Dose 250 EA; Start 06/10/16 at 14:00 [place]/ Glycerin (Tucks Pads) 1 pad PRN PRN [place] HEMORRHOID/EPISIOTMY PAIN Last administered on 07/31/16 20:55; Admin Dose 40 PAD; Start 06/10/16 at 21:00 [place]/ Glycerin (Tucks Pads) 1 pad PRN PRN DC HEMORROID PAIN/ITCHING; Start 06/23/16 at 16:00 Prenat Multivit/ [employer] [place]/Iron/Folic Ac ( S) 1 tab DAILY@21 PO Last administered on 08/09/16 20:56; Admin Dose 1 TAB; Start 07/18/16 at 21:00 Senna (Senokot) 1 tab DAILY@21 PO Last administered on 08/09/16 20:56; Admin Dose 1 TAB; Start 07/18/16 at 21:00 Diagnostic Test (Pha) (Accu-Chek) 1 ea FBSPP XX Last administered on 08/09/16 22:14; Admin Dose 1 EA; Start 07/22/16 at 08:00 Nifedipine (Procardia) 20 mg Q6 PO Last administered on 08/10/16 11:37; Admin Dose 20 MG; Start 07/28/16 at 09:30 Dibucaine (Nupercainal) 1 applic TID PRN TOP HEMORRHOID/EPISIOTMY PAIN Last administered on 07/31/16 20:55; Admin Dose 30 APPLIC; Start 07/31/16 at 20:30 Diphenhydramine HCl (Benadryl) 50 mg HS PRN PO INSOMNIA; Start 08/05/16 at 21:00 PARI BARNES MD Aug 10, 2016 11:50
[2016-08-10] MEDS: AL HYDROX/MG HYDROX/SIMETH 30 ML CUP PO PRN (17:25)
[2016-08-10] MEDS ORDERED: AL HYDROX/MG HYDROX/SIMETH 30 ML CUP PO PRN (17:30)
[2016-08-10] MEDS: ACETAMINOPHEN 325 MG TAB PO PRN (18:32)
[2016-08-10] MEDS: SENNA TAB PO SCH (21:04)
[2016-08-10] MEDS: MULTIVIT/MIN/FOLATE/IRON/PREN TAB PO SCH (21:04)
[2016-08-11] MEDS: NIFEdipine 10 MG CAP PO SCH ×4 (05:56→23:57)
[2016-08-11] MEDS: FERROUS SULFATE (EC) 325 MG TAB PO SCH (09:09)
[2016-08-11] MEDS: DOCUSATE SODIUM 100 MG CAP PO SCH (09:10)
[2016-08-11] MEDS: ACCU-CHEK XX SCH ×3 (11:40→21:17)
--- NOTE | 2016-08-11 14:50 | QN ---
Documentation Comment No complaint Afebrile VSS Strip Reactive Continue with present care. SHEKHAR WILD MD Aug 11, 2016 14:50
[2016-08-11] MEDS: ACETAMINOPHEN 325 MG TAB PO PRN (19:43)
[2016-08-11] MEDS: SENNA TAB PO SCH (21:00)
[2016-08-11] MEDS: MULTIVIT/MIN/FOLATE/IRON/PREN TAB PO SCH (21:05)
[2016-08-12] MEDS: NIFEdipine 10 MG CAP PO SCH ×3 (05:50→18:01)
[2016-08-12] MEDS: ACCU-CHEK XX SCH ×4 (08:40→21:25)
[2016-08-12] MEDS: FERROUS SULFATE (EC) 325 MG TAB PO SCH (09:25)
[2016-08-12] MEDS: DOCUSATE SODIUM 100 MG CAP PO SCH (09:25)
[2016-08-12] MEDS: [UNRECOGNIZED DRUG - OTHER] IM SCH (15:20)
--- NOTE | 2016-08-12 17:18 | QN ---
Documentation Comment No complaint Afebrile VSS Strip Reactive Continue with present care. SHEKHAR WILD MD Aug 12, 2016 17:18
[2016-08-12] MEDS: MULTIVIT/MIN/FOLATE/IRON/PREN TAB PO SCH (21:25)
[2016-08-12] MEDS: SENNA TAB PO SCH (21:25)
[2016-08-13] MEDS: NIFEdipine 10 MG CAP PO SCH ×5 (00:03→23:56)
[2016-08-13] MEDS: ACCU-CHEK XX SCH ×4 (10:00→21:05)
[2016-08-13] MEDS: FERROUS SULFATE (EC) 325 MG TAB PO SCH (12:27)
[2016-08-13] MEDS: DOCUSATE SODIUM 100 MG CAP PO SCH (12:27)
--- NOTE | 2016-08-13 15:57 | QN ---
Documentation Comment pt doing well no complaints vss ap iup 33.4 short cervix continue care MOE WEBBER MD Aug 13, 2016 15:57
[2016-08-13] MEDS: MULTIVIT/MIN/FOLATE/IRON/PREN TAB PO SCH (21:10)
[2016-08-13] MEDS: SENNA TAB PO SCH (21:10)
[2016-08-14] MEDS: NIFEdipine 10 MG CAP PO SCH ×3 (06:04→18:15)
[2016-08-14] MEDS: ACCU-CHEK XX SCH ×4 (09:48→21:45)
[2016-08-14] MEDS: FERROUS SULFATE (EC) 325 MG TAB PO SCH (09:49)
[2016-08-14] MEDS: DOCUSATE SODIUM 100 MG CAP PO SCH (09:49)
--- NOTE | 2016-08-14 19:57 | QN ---
Documentation Comment No complaint Afebrile VSS Strip Reactive continue with present care. SHEKHAR WILD MD Aug 14, 2016 19:56
[2016-08-14] MEDS: ACETAMINOPHEN 325 MG TAB PO PRN (20:21)
[2016-08-14] MEDS: SENNA TAB PO SCH (21:47)
[2016-08-14] MEDS: MULTIVIT/MIN/FOLATE/IRON/PREN TAB PO SCH (21:47)
[2016-08-15] MEDS: NIFEdipine 10 MG CAP PO SCH ×4 (00:05→17:50)
[2016-08-15] MEDS: FERROUS SULFATE (EC) 325 MG TAB PO SCH (08:58)
[2016-08-15] MEDS: DOCUSATE SODIUM 100 MG CAP PO SCH (08:58)
[2016-08-15] MEDS: ACCU-CHEK XX SCH ×4 (08:58→21:10)
--- NOTE | 2016-08-15 12:40 | QN ---
Documentation Comment No complaint Afebrile VSS strip Reactive Continue with present care. SHEKHAR WILD MD Aug 15, 2016 12:40
[2016-08-15] MEDS: ACETAMINOPHEN 325 MG TAB PO PRN ×2 (12:43→19:51)
[2016-08-15] MEDS: MULTIVIT/MIN/FOLATE/IRON/PREN TAB PO SCH (21:06)
[2016-08-15] MEDS: SENNA TAB PO SCH (21:07)
--- NOTE | 2016-08-15 21:42 | CONS ---
Date/Time of Note Date/Time of Note DATE: 08/15/16 TIME: 21:41 Assessment/Plan Assessment/Plan Additional Assessment/Plan 1) Left TM Trauma, accidentally self-inflicted with a cotton-tipped applicator - Dry Ear Precautions upon discharge - Education done - patient is advised not to put anything into her ear canals, even if they are itchy. - Warm compress may be soothing. - Hot salt water gargles. Hot soups and teas may help improve circulation and healing in that area. - Follow-up with primary physician in 2 weeks sooner if needed. 2) Left Otitis Externa - Start Cortisporin Otic Suspension 4 gtts QID for 7 to 10 days Consultation Date/Type/Reason Admit Date/Time August 10, 2006 Hospital consult and visit This patient is a 20 years old 2 para 1 who lost her first at 22 weeks During this she has been seen about 2 months ago due to premature contractions and short cervix. when she was admitted on May she was given cortisone ,Mag sulphate and antibiotic. She is now 34 weeks and 1 day ,her cervical length was 2 cm with 90% effacement and -4 station yesterday. On examination today, she is fairly comfortable, very rare contractions, heart tone is normal On physical exam ,her ear nose throat appears to be normal. Neck is normal no neck vein distention no thyromegaly no lymph node enlargement anywhere in the body Her chest is clear. heart normal sinus rhythm no murmur Abdomen is soft ,Fundus measures about 30 cm . heart tone is normal no deceleration , fairly good variability. No CVA tenderness Pelvic exam was not performed today. No ankle edema ,knee-jerk reflexes 1+ normal Laboratory Tests Test 08/09/16 11:55 08/09/16 15:50 08/09/16 22:13 08/10/16 08:20 Bedside Glucose 81mg/dL 95mg/dL 131mg/dL 75mg/dL Test 08/10/16 11:18 Bedside Glucose 86mg/dL Current Medications Medications (Trade) Dose Ordered Sig/Maximiliano Route PRN Reason Start Time Stop Time Status Last Admin Dose Admin Lactated Ringer's 1,000 ml @ 75 mls/hr [id number] IV 06/07/16 13:39 06/17/16 15:41 DC 06/17/16 11:29 75 MLS/HR Magnesium Sulfate (Magnesium Sulfate 4 Gm/100 ml) 100 ml @ 200 mls/hr ONCE ONCE IV 06/07/16 14:00 06/07/16 14:29 DC 06/07/16 14:10 200 MLS/HR Betamethasone Acet/Betameth SodPhos 12 mg 12 mg Q24H IM 06/07/16 14:00 06/08/16 14:01 DC 06/08/16 14:11 12 MG Ampicillin 100 ml @ 100 mls/hr ONCE ONCE IV 06/07/16 14:00 06/07/16 15:01 DC 06/07/16 14:12 100 MLS/HR Ampicillin (Ampicillin 1 Gm/ NS (Pmx)) 50 ml @ 100 mls/hr Q4H IV 06/07/16 18:00 06/08/16 18:30 DC 06/08/16 17:26 100 MLS/HR Prenat Multivit/ Associate [employer] Manager/Iron/Folic Ac ( S) 1 tab DAILY PO 06/08/16 09:00 07/17/16 09:48 DC 07/16/16 09:19 1 TAB Ferrous Sulfate (Ferrous Sulfate (Ec)) 325 mg DAILY PO 06/08/16 09:00 08/10/16 10:48 325 MG Docusate Sodium (Colace) 100 mg DAILY PO 06/08/16 09:00 08/10/16 10:48 100 MG Acetaminophen (Tylenol Tab) 650 mg Q4H PRN PO PAIN AND OR ELEVATED TEMP 06/07/16 14:00 08/07/16 12:44 650 MG Al Hydrox/Mg Hydrox/Simethicone (Mag-Al Plus) 30 ml Q6H PRN PO GASTROINTESTINAL UPSET 06/07/16 14:00 08/06/16 19:33 30 ML Ondansetron HCl 4 mg 4 mg Q6H PRN IV NAUSEA AND/OR VOMITING 06/07/16 14:00 Magnesium Sulfate 500 ml @ 50 mls/hr Q10H IV 06/07/16 14:04 06/11/16 13:48 DC 06/10/16 03:42 50 MLS/HR Ampicillin 100 ml @ 100 mls/hr Q6 IVPB 06/08/16 18:30 06/08/16 18:33 DC Ampicillin 100 ml @ 100 mls/hr Q6 IVPB 06/09/16 00:00 06/17/16 15:41 DC 06/17/16 11:29 100 MLS/HR Ampicillin (Ampicillin 1 Gm/ NS (Pmx)) 50 ml @ 100 mls/hr ONCE IV 06/08/16 18:45 06/08/16 19:30 DC 06/08/16 18:44 100 MLS/HR Non-Formulary Medication ADMINISTER 1ML (250MG) INTRAMUSCULA... Sa@14 IM 06/10/16 14:00 08/05/16 14:01 250 EA Senna (Senokot) 2 tab ONCE ONCE PO 06/10/16 21:00 06/11/16 13:51 DC 06/10/16 21:44 2 TAB [place]/ Glycerin (Tucks Pads) 1 pad PRN PRN OR HEMORRHOID/EPISIOTMY PAIN 06/10/16 21:00 07/31/16 20:55 40 PAD Senna (Senokot) 1 tab DAILY PO 06/14/16 09:00 07/17/16 09:49 DC 07/16/16 09:19 1 TAB [place]/ Glycerin (Tucks Pads) 1 pad PRN PRN OR HEMORROID PAIN/ITCHING 06/23/16 16:00 Pantoprazole (Protonix Tab) 40 mg ONCE ONCE PO 06/27/16 10:30 06/28/16 09:29 DC 06/27/16 11:32 40 MG Pantoprazole (Protonix Tab) 40 mg DAILY@06 PO 06/28/16 09:00 06/28/16 09:31 DC 06/28/16 09:23 40 MG Diagnostic Test (Pha) (Accu-Chek) 1 ea FBSPP XX 07/01/16 07:30 07/22/16 07:48 DC 07/21/16 20:57 1 EA Diphtheria/ Tetanus/Acell Pertussis (Adacel) 0.5 ml ONCE ONCE IM* 07/05/16 14:00 07/05/16 14:01 DC Influenza Virus Vaccine (Fluzone) 0.5 ml ONCE ONCE IM* 07/05/16 13:00 07/05/16 14:39 DC Diphtheria/ Tetanus/Acell Pertussis (Adacel) 0.5 ml ONCE ONCE IM* 07/14/16 09:00 07/14/16 09:01 DC 07/14/16 11:31 0.5 ML Prenat Multivit/ Associate Account Manager/Iron/Folic Ac ( S) 1 tab DAILY@18 PO 07/17/16 18:00 07/18/16 00:06 DC 07/17/16 22:06 1 TAB Senna (Senokot) 1 tab DAILY@18 PO 07/17/16 18:00 07/18/16 00:06 DC 07/17/16 22:06 1 TAB Prenat Multivit/ [place]/Iron/Folic Ac ( S) 1 tab DAILY@21 PO 07/18/16 21:00 08/09/16 20:56 1 TAB Senna (Senokot) 1 tab DAILY@21 PO 07/18/16 21:00 08/09/16 20:56 1 TAB Diagnostic Test (Pha) (Accu-Chek) 1 ea Q2 XX 07/22/16 08:00 07/22/16 08:00 DC Diagnostic Test (Pha) 1 ea 1 ea FBSPP XX 07/22/16 08:00 08/09/16 22:14 1 EA Magnesium Sulfate 100 ml @ 200 mls/hr ONCE ONCE IVPB 07/25/16 20:30 07/25/16 20:59 DC 07/25/16 21:57 200 MLS/HR Magnesium Sulfate (Magnesium Sulfate 20 Gm/500 ml) 500 ml @ 50 mls/hr Q10H IV 07/25/16 20:30 07/28/16 09:26 DC 07/27/16 23:54 50 MLS/HR Betamethasone Acet/Betameth SodPhos 12 mg 12 mg DAILY IM 07/25/16 20:30 07/25/16 21:17 DC Lactated Ringer's (Lr) 1,000 ml @ 75 mls/hr [id number] IV 07/25/16 21:00 07/28/16 18:42 DC 07/28/16 10:48 75 MLS/HR Betamethasone Acet/Betameth SodPhos ([place] Soluspan) 12 mg Q24H IM 07/25/16 21:30 07/26/16 21:31 DC 07/26/16 21:45 12 MG Diphenhydramine HCl (Benadryl) 50 mg ONCE ONCE PO 07/26/16 22:00 07/26/16 22:01 DC 07/26/16 23:17 50 MG Diphenhydramine HCl (Benadryl) 50 mg HS PO 07/27/16 21:00 08/04/16 22:12 DC 08/04/16 21:22 50 MG Nifedipine (Procardia) 20 mg Q6 PO 07/28/16 09:30 08/10/16 11:37 20 MG Al Hydrox/Mg Hydrox/Simethicone (Mag-Al Plus) 30 ml Q4H PRN PO GASTROINTESTINAL UPSET 07/29/16 13:00 07/29/16 13:00 DC Dibucaine (Nupercainal) 1 applic TID PRN TOP HEMORRHOID/EPISIOTMY PAIN 07/31/16 20:30 07/31/16 20:55 30 APPLIC Diphenhydramine HCl (Benadryl) 50 mg HS PRN PO INSOMNIA 08/05/16 21:00 Date of Consultation: Aug 15, 2016 Type of Consultation: Medicine Reason for Consultation Left Ear Pain Referring Provider: SHEKHAR WILD MD Hx of Present Illness Thank you Dr. Wild for asking me to see this very pleasant woman. Ms. Gamino is a 20-year-old at 33-6/7 weeks. She complains of pain in her left ear since earlier today. The pain started after she used a cotton-tipped applicator to scratch the inside of her ear. Her ear canal was itchy. She had something like this once before when she pushed earwax too far into her ear canal. There has been no blood, no drainage. No decrease in hearing. No tinnitus. No nausea vomiting fevers or chills. A mild headache earlier that was resolved with Tylenol. No sore throat or hoarse voice. General: Admits: Denies: Fever, Chills, Poor Appetite, Generalized Body Aches Eyes: Admits: Denies: Blurry Vision, Double Vision HENT: Admits: Left ear pain. See history of present illness. Denies: Runny/Stuffy Nose, Sore Throat Cardiovascular: Admits: Denies: Chest Pain, Palpitations, Leg Swelling Pulmonary: Admits: Denies: Cough, Wheeze, Shortness of Breath Gastrointestinal: Admits: Denies: Abdominal Pain, Nausea, Vomiting, Diarrhea Musculoskeletal: Admits: Denies: Joint Pain, Joint Swelling, Muscle Pain Neurological: Admits: Headache, mild. Resolved with Tylenol Denies: Dizziness, Numbness, Tingling, Shooting Pains Integumentary: Admits: Denies: Rash, Itch Past Medical History Medical History: no pertinent history Social History Smoking Status: Never smoker Exam/Review of Systems Exam General: WD/WN gravid, 20 y/o female, in no acute distress Eyes: Sclera White, EOMI HENT: Normocephalic/Atraumatic, External Ears/Nose Normal, Small amount of cerumen in bilateral ear canals. No tenderness with palpation of left tragus or traction of the left pinna. Right TM Intact, clear, Left TM, Intact but inflamed due to trauma, per patient history. No obvious rupture. No active bleeding. Moist Mucus Membranes Neck: Supple, Trachea Midline Cardiovascular: Normal Rate, Regular Rhythm, Normal S1 and S2, No Murmur, No Extra Sounds. Radial pulse +2/4. No pedal Edema. Pulmonary: Clear to Auscultation Bilaterally, Normal Respiratory Effort, No Rales, Rhonchi or Wheezes Gastrointestinal: Normoactive Bowel Sounds, Soft, Gravid, Non-Tender/Non- Distended Musculoskeletal: Normal Muscle Bulk and Tone Neurological: CN II - XII Grossly Intact, Non-Focal, Speech Normal Integumentary: Normal Moisture and Temperature, Good Turgor, No Jaundice, No Rash Lymphatic: No Cervical Lymphadenopathy Psychiatric: Appropriate Mood and Affect, Good Eye Contact Results Results 24 hrs Laboratory Tests Test 08/14/16 21:44 08/15/16 08:56 08/15/16 11:23 08/15/16 15:08 Bedside Glucose 87 71 75 80 Test 08/15/16 21:05 Bedside Glucose 90 Medications Medications Current Medications Ferrous Sulfate (Ferrous Sulfate (Ec)) 325 mg DAILY PO Last administered on 08:58; Admin Dose 325 MG; Start 06/08/16 at 09:00 Docusate Sodium (Colace) 100 mg DAILY PO Last administered on 08/15/16 08:58; Admin Dose 100 MG; Start 06/08/16 at 09:00 Acetaminophen (Tylenol Tab) 650 mg Q4H PRN PO PAIN AND OR ELEVATED TEMP Last administered on 08/15/16 19:51; Admin Dose 650 MG; Start 06/07/16 at 14:00 Ondansetron HCl (Zofran Inj) 4 mg Q6H PRN IV NAUSEA AND/OR VOMITING; Start 06/07 at 14:00 Non-Formulary Medication ADMINISTER 1ML (250MG) INTRAMUSCULA... Sa@14 IM Last administered on 08/12/16 15:20; Admin Dose 250 EA; Start 06/10/16 at 14:00 [place]/ Glycerin (Tucks Pads) 1 pad PRN PRN OR HEMORRHOID/EPISIOTMY PAIN Last administered on 07/31/16 20:55; Admin Dose 40 PAD; Start 06/10/16 at 21:00 [place]/ Glycerin (Tucks Pads) 1 pad PRN PRN OR HEMORROID PAIN/ITCHING; Start 06/23/16 at 16:00 Prenat Multivit/ [place]/Iron/Folic Ac ( S) 1 tab DAILY@21 PO Last administered on 08/15/16 21:06; Admin Dose 1 TAB; Start 07/18/16 at 21:00 Senna (Senokot) 1 tab DAILY@21 PO Last administered on 08/15/16 21:07; Admin Dose 1 TAB; Start 07/18/16 at 21:00 Diagnostic Test (Pha) (Accu-Chek) 1 ea FBSPP XX Last administered on 08/15/16 21:10; Admin Dose 1 EA; Start 07/22/16 at 08:00 Nifedipine (Procardia) 20 mg Q6 PO Last administered on 08/15/16 17:50; Admin Dose 20 MG; Start 07/28/16 at 09:30 Dibucaine (Nupercainal) 1 applic TID PRN TOP HEMORRHOID/EPISIOTMY PAIN Last administered on 07/31/16 20:55; Admin Dose 30 APPLIC; Start 07/31/16 at 20:30 Diphenhydramine HCl (Benadryl) 50 mg HS PRN PO INSOMNIA; Start 08/05/16 at 21:00 Al Hydrox/Mg Hydrox/Simethicone (Mag-Al Plus) 30 ml Q6H PRN PO GASTROINTESTINAL UPSET Last administered on 08/10/16 17:25; Admin Dose 30 ML; Start 08/10/16 at 17:17 SHARIFA SUMNER DO Aug 15, 2016 21:42
[2016-08-16] MEDS: NIFEdipine 10 MG CAP PO SCH ×5 (00:07→23:53)
[2016-08-16] MEDS: NEOMYC/POLYMYX/HC 10 ML OTIC SUSP LEFT EAR SCH ×5 (00:08→22:32)
[2016-08-16] MEDS: ACCU-CHEK XX SCH ×4 (09:25→21:15)
[2016-08-16] MEDS: DOCUSATE SODIUM 100 MG CAP PO SCH (09:26)
[2016-08-16] MEDS: FERROUS SULFATE (EC) 325 MG TAB PO SCH (09:26)
--- NOTE | 2016-08-16 21:59 | QN ---
Documentation Comment No complaint Afebrile VSS strip Reactive continue with present care. SHEKHAR WILD MD Aug 16, 2016 21:59
[2016-08-16] MEDS: SENNA TAB PO SCH (22:33)
[2016-08-16] MEDS: MULTIVIT/MIN/FOLATE/IRON/PREN TAB PO SCH (22:33)
[2016-08-16] MEDS: ACETAMINOPHEN 325 MG TAB PO PRN (23:53)
[2016-08-17] MEDS: NIFEdipine 10 MG CAP PO SCH ×3 (06:31→18:05)
[2016-08-17] MEDS: ACCU-CHEK XX SCH ×4 (08:40→21:04)
[2016-08-17] MEDS: DOCUSATE SODIUM 100 MG CAP PO SCH (10:40)
[2016-08-17] MEDS: FERROUS SULFATE (EC) 325 MG TAB PO SCH (10:40)
[2016-08-17] MEDS: NEOMYC/POLYMYX/HC 10 ML OTIC SUSP LEFT EAR SCH ×4 (10:40→21:34)
[2016-08-17] MEDS: AL HYDROX/MG HYDROX/SIMETH 30 ML CUP PO PRN (11:52)
[2016-08-17] MEDS: ACETAMINOPHEN 325 MG TAB PO PRN (18:05)
[2016-08-17] MEDS: MULTIVIT/MIN/FOLATE/IRON/PREN TAB PO SCH (21:04)
[2016-08-17] MEDS: SENNA TAB PO SCH (21:04)
--- NOTE | 2016-08-17 21:32 | PN ---
Date/Time of Note Date/Time of Note DATE: 08/17/16 TIME: 21:30 OB Subjective Subjective Subjective 20 yo P0 @ 34.1 wks, admitted w shortened cervix, doing well, no complaints c/w plan of care as per ARNOLDO Cote MD Aug 17, 2016 21:32
[2016-08-18] MEDS: NIFEdipine 10 MG CAP PO SCH ×5 (00:01→23:46)
[2016-08-18] MEDS: ACCU-CHEK XX SCH ×4 (07:36→21:30)
[2016-08-18] MEDS: FERROUS SULFATE (EC) 325 MG TAB PO SCH (09:09)
[2016-08-18] MEDS: DOCUSATE SODIUM 100 MG CAP PO SCH (09:09)
[2016-08-18] MEDS: NEOMYC/POLYMYX/HC 10 ML OTIC SUSP LEFT EAR SCH ×4 (09:09→21:34)
--- NOTE | 2016-08-18 19:05 | QN ---
Documentation Comment No complaint Afebrile VSS Strip Reactive Continue with present care. SHEKHAR WILD MD Aug 18, 2016 19:05
[2016-08-18] MEDS: MULTIVIT/MIN/FOLATE/IRON/PREN TAB PO SCH (21:34)
[2016-08-18] MEDS: SENNA TAB PO SCH (21:34)
[2016-08-19] MEDS: NIFEdipine 10 MG CAP PO SCH ×4 (06:00→23:34)
[2016-08-19] MEDS: ACCU-CHEK XX SCH ×4 (09:00→20:05)
[2016-08-19] MEDS: NEOMYC/POLYMYX/HC 10 ML OTIC SUSP LEFT EAR SCH ×3 (09:25→21:40)
[2016-08-19] MEDS: DOCUSATE SODIUM 100 MG CAP PO SCH (09:26)
[2016-08-19] MEDS: FERROUS SULFATE (EC) 325 MG TAB PO SCH (09:26)
[2016-08-19] MEDS: [UNRECOGNIZED DRUG - OTHER] IM SCH (14:00)
--- NOTE | 2016-08-19 19:24 | QN ---
Documentation Comment No complaint Afebrile VSS Strip Reactive Continue with present care. SHEKHAR WILD MD Aug 19, 2016 19:24
[2016-08-19] MEDS: SENNA TAB PO SCH (21:40)
[2016-08-19] MEDS: MULTIVIT/MIN/FOLATE/IRON/PREN TAB PO SCH (21:40)
[2016-08-20] MEDS: NIFEdipine 10 MG CAP PO SCH ×4 (05:53→23:56)
[2016-08-20] MEDS: ACETAMINOPHEN 325 MG TAB PO PRN ×2 (06:01→10:00)
[2016-08-20] MEDS: ACCU-CHEK XX SCH ×4 (09:45→21:15)
[2016-08-20] MEDS: DOCUSATE SODIUM 100 MG CAP PO SCH (09:48)
[2016-08-20] MEDS: FERROUS SULFATE (EC) 325 MG TAB PO SCH (09:48)
[2016-08-20] MEDS: NEOMYC/POLYMYX/HC 10 ML OTIC SUSP LEFT EAR SCH ×4 (09:50→21:00)
[2016-08-20] MEDS: AL HYDROX/MG HYDROX/SIMETH 30 ML CUP PO PRN (11:08)
--- NOTE | 2016-08-20 14:00 | QN ---
Documentation Comment No complaint Afebrile VSS Strip Reactive Continue with present care. SHEKHAR WILD MD Aug 20, 2016 14:00
[2016-08-20] MEDS: SENNA TAB PO SCH (21:00)
[2016-08-20] MEDS: MULTIVIT/MIN/FOLATE/IRON/PREN TAB PO SCH (21:00)
[2016-08-21] MEDS: NIFEdipine 10 MG CAP PO SCH ×2 (05:54→12:03)
[2016-08-21] MEDS: NEOMYC/POLYMYX/HC 10 ML OTIC SUSP LEFT EAR SCH ×4 (09:00→21:57)
[2016-08-21] MEDS: ACCU-CHEK XX SCH ×4 (09:40→19:35)
[2016-08-21] MEDS: FERROUS SULFATE (EC) 325 MG TAB PO SCH (09:43)
[2016-08-21] MEDS: DOCUSATE SODIUM 100 MG CAP PO SCH (09:43)
[2016-08-21] MEDS: ACETAMINOPHEN 325 MG TAB PO PRN (09:44)
[2016-08-21] MEDS: AL HYDROX/MG HYDROX/SIMETH 30 ML CUP PO PRN (12:52)
[2016-08-21] MEDS: LACTATED RINGER'S 1,000 ML IV SCH ×2 (14:04→21:25)
[2016-08-21] MEDS ORDERED: AMPICILLIN 2 GM/NS (PMX) 100 ML IVPB ONE ×2 (16:00→22:00)
[2016-08-21] MEDS ORDERED: AMPICILLIN 1 GM/NS (PMX) 50 ML IVPB SCH ×2 (17:00→20:00)
--- NOTE | 2016-08-21 17:02 | RADRPT ---
PROCEDURE: US OB CLINICAL INDICATION: labor, uncertain of position TECHNIQUE: Multiple sonographic images of the pelvis were obtained. The images were reviewed on a PACS workstation. COMPARISON: Obstetrical ultrasound from 07/25/2016 FINDINGS: The cervix is not well visualized. There is a single viable intrauterine gestation. Cardiac activity is present with 143 beats per minute. There is a vertex presentation. The placenta is anterior. There is no evidence for an abruption or placenta previa. There is a subjectively normal amount of amniotic fluid. Measurements were made in order to determine age. The results are as follows (cm): BPD =8.95 HC =31.68 AC =31.24 FL =7.04 Estimated gestational age by ultrasound of approximately 35 weeks, 6 days. The estimated date of delivery by ultrasound is 09/19/2016. Reported gestational age by LMP of approximately 34 weeks, 5 days. The reported date of delivery by LMP is 09/27/2016. EFW = 2714 grams (71st percentile) IMPRESSION: Single viable intrauterine gestation of approximately 35 weeks, 6 days . The estimated date of delivery is 09/19/2016 . Dating by ultrasound is within 8 days of dating by LMP. Cephalic presentation. Normal JODIE. Estimated weight is in the 71st percentile. RPTAT: EE Physician Mike Date Time Electronically viewed and signed by Physician Mike on 08/21/2016 17:01 ANDREW
[2016-08-21] MEDS ORDERED: LACTATED RINGER'S 1,000 ML IV SCH ×2 (17:20→17:40)
[2016-08-21] MEDS ORDERED: METHYLERGONOVINE 0.2 MG INJ IM PRN ×2 (17:30→18:00)
[2016-08-21] MEDS ORDERED: OXYTOCIN 30 UNITS/LR 500 ML IV PRN ×2 (17:30→18:00)
[2016-08-21] MEDS ORDERED: CARBOPROST 250 MCG INJ IM PRN ×2 (17:30→18:00)
[2016-08-21] MEDS ORDERED: MISOPROSTOL 200 MCG TAB PR PRN ×2 (17:30→18:00)
[2016-08-21] MEDS ORDERED: IBUPROFEN 600 MG TAB PO PRN (17:30)
[2016-08-21] MEDS ORDERED: OXYTOCIN 30 UNITS/LR 500 ML IV SCH ×2 (17:30)
[2016-08-21] MEDS ORDERED: LIDOCAINE 1% (MPF) 30 ML INJ INJ PRN ×2 (17:30→18:00)
[2016-08-21] MEDS ORDERED: BUTORPHANOL 2 MG INJ IV PRN (17:30)
[2016-08-21 17:43] LABS: ADD SCAN DIFF NO
[2016-08-21 17:45] LABS: BASOPHILS % 0.3 % (0.0-2.0); EOSINOPHILS # 0.1 10^3/ul (0.0-0.5); EOSINOPHILS % 0.8 % (0.0-7.0); HEMATOCRIT 37.6 % (37.0-47.0); HEMOGLOBIN 12.7 g/dl (12.0-16.0); LYMPHOCYTES # 2.2 10^3/ul (0.8-2.9); LYMPHOCYTES % 20.2 % (15.0-51.0); MEAN CORPUSCULAR HGB CONC 33.8 g/dl (32.0-37.0); MEAN CORPUSCULAR VOLUME 88.7 fl (82.0-101.0); MEAN PLATELET VOLUME 11.9 fl (7.4-10.4); MONOCYTE # 0.9 10^3/ul (0.3-0.9); NEUTROPHIL # 7.6 10^3/ul (1.6-7.5); NEUTROPHILS % 70.3 % (39.0-77.0); PLATELET COUNT 302 10^3/UL (140-415); RED BLOOD COUNT 4.24 10^6/ul (4.20-5.40); RED CELL DISTRIBUTION WIDTH 13.7 % (11.5-14.5); WHITE BLOOD COUNT 10.9 10^3/ul (4.8-10.8)
[2016-08-21 18:00] LABS: INR 0.9; PROTIME 12.1 Sec (12.2-14.2); PT RATIO 0.9
[2016-08-21 18:01] LABS: PARTIAL THROMBOPLASTIN TIME 31.5 Sec (25.0-35.0)
[2016-08-21] MEDS ORDERED: PRENAT PO (18:58)
--- NOTE | 2016-08-21 20:50 | QN ---
Documentation Comment Patient with more frequent contractions Afebrile VSS Strip Reactive Cervix 4 cm Expectant management. SHEKHAR WILD MD Aug 21, 2016 20:50
[2016-08-21] MEDS: DEXTROSE 5%-LR 1,000 ML IV SCH (20:53)
[2016-08-21 21:21] LABS: ALBUMIN/GLOBULIN RATIO 0.91
[2016-08-21 21:26] LABS: ALBUMIN 3.1 g/dl (3.3-4.9); CALCIUM 8.8 mg/dl (8.4-10.2); CREATININE 0.39 mg/dl (0.44-1.00); POTASSIUM 3.9 mmol/L (3.5-5.1); TOTAL PROTEIN 6.5 g/dl (6.1-8.1)
[2016-08-21 21:30] LABS: ADD UMIC NO; URINE BILIRUBIN (Dip) NEGATIVE (NEGATIVE); URINE BLOOD (Dip) NEGATIVE (NEGATIVE); URINE COLOR LT. YELLOW (YELLOW); URINE GLUCOSE (Dip) NEGATIVE (NEGATIVE); URINE KETONES (Dip) 3+ (NEGATIVE); URINE LEUKOCYTE ESTERASE (Dip) NEGATIVE (NEGATIVE); URINE NITRITE (Dip) NEGATIVE (NEGATIVE); URINE TOTAL PROTEIN (Dip) NEGATIVE (NEGATIVE); URINE UROBILINOGEN (Dip) 0.2 E.U./dL (0.1-1.0)
[2016-08-21] MEDS ORDERED: DIPHENHYDRAMINE 50 MG CAP PO PRN (22:00)
[2016-08-21] MEDS ORDERED: WITCH HAZEL/GLYCERIN PAD PR PRN (22:00)
[2016-08-21] MEDS ORDERED: LACTATED RINGER'S 1,000 ML IV PRN (22:00)
[2016-08-22] MEDS: AMPICILLIN 1 GM/NS (PMX) 50 ML IVPB SCH ×6 (00:30→20:31)
[2016-08-22] MEDS ORDERED: AMPICILLIN 1 GM/NS (PMX) 50 ML IVPB SCH (01:00)
[2016-08-22] MEDS: DEXTROSE 5%-LR 1,000 ML IV SCH ×2 (04:53→08:36)
[2016-08-22] MEDS: LACTATED RINGER'S 1,000 ML IV SCH ×6 (05:30→15:33)
[2016-08-22] MEDS: ACCU-CHEK XX SCH ×5 (06:00→19:35)
[2016-08-22] MEDS: FERROUS SULFATE (EC) 325 MG TAB PO SCH (08:38)
[2016-08-22] MEDS: NEOMYC/POLYMYX/HC 10 ML OTIC SUSP LEFT EAR SCH ×4 (08:52→21:00)
[2016-08-22] MEDS: DOCUSATE SODIUM 100 MG CAP PO SCH (09:13)
[2016-08-22] MEDS ORDERED: SENNA TAB PO SCH (21:00)
--- NOTE | 2016-08-22 22:41 | QN ---
Documentation Comment Patient states her contractions havve spaced out. Afebrile VSS Strip Reactive Stable Continue with present care. SHEKHAR WILD MD Aug 22, 2016 22:41
[2016-08-23] MEDS: MULTIVIT/MIN/FOLATE/IRON/PREN TAB PO SCH ×2 (01:07→22:04)
[2016-08-23] MEDS: FERROUS SULFATE (EC) 325 MG TAB PO SCH (09:00)
[2016-08-23] MEDS: ACCU-CHEK XX SCH ×4 (09:58→21:51)
[2016-08-23] MEDS: ACETAMINOPHEN 325 MG TAB PO PRN (10:22)
[2016-08-23] MEDS: DOCUSATE SODIUM 100 MG CAP PO SCH (10:23)
[2016-08-23] MEDS: NEOMYC/POLYMYX/HC 10 ML OTIC SUSP LEFT EAR SCH ×4 (11:12→21:00)
[2016-08-23 13:26] LABS: ADD UMIC YES; URINE BILIRUBIN (Dip) NEGATIVE (NEGATIVE); URINE BLOOD (Dip) NEGATIVE (NEGATIVE); URINE COLOR LT. YELLOW (YELLOW); URINE GLUCOSE (Dip) NEGATIVE (NEGATIVE); URINE KETONES (Dip) TRACE (NEGATIVE); URINE LEUKOCYTE ESTERASE (Dip) TRACE (NEGATIVE); URINE NITRITE (Dip) NEGATIVE (NEGATIVE); URINE TOTAL PROTEIN (Dip) NEGATIVE (NEGATIVE); URINE UROBILINOGEN (Dip) 0.2 E.U./dL (0.1-1.0)
[2016-08-23 13:26] LABS: ADD SCAN DIFF NO
[2016-08-23 13:28] LABS: BASOPHILS % 0.2 % (0.0-2.0); EOSINOPHILS # 0.1 10^3/ul (0.0-0.5); EOSINOPHILS % 0.7 % (0.0-7.0); HEMATOCRIT 37.2 % (37.0-47.0); HEMOGLOBIN 12.2 g/dl (12.0-16.0); LYMPHOCYTES % 23.2 % (15.0-51.0); MEAN CORPUSCULAR HEMOGLOBIN 29.6 pg (29.0-33.0); MEAN CORPUSCULAR HGB CONC 32.8 g/dl (32.0-37.0); MEAN CORPUSCULAR VOLUME 90.3 fl (82.0-101.0); MEAN PLATELET VOLUME 11.7 fl (7.4-10.4); MONOCYTE # 0.7 10^3/ul (0.3-0.9); MONOCYTES % 8.6 % (0.0-11.0); NEUTROPHIL # 5.7 10^3/ul (1.6-7.5); NEUTROPHILS % 66.9 % (39.0-77.0); PLATELET COUNT 252 10^3/UL (140-415); RED BLOOD COUNT 4.12 10^6/ul (4.20-5.40); RED CELL DISTRIBUTION WIDTH 13.9 % (11.5-14.5); WHITE BLOOD COUNT 8.6 10^3/ul (4.8-10.8)
[2016-08-23 13:47] LABS: ALBUMIN 2.9 g/dl (3.3-4.9); ALBUMIN/GLOBULIN RATIO 0.93; CREATININE 0.42 mg/dl (0.44-1.00)
[2016-08-23 13:47] LABS: BACTERIA,URINE FEW
[2016-08-23] MEDS: AL HYDROX/MG HYDROX/SIMETH 30 ML CUP PO PRN (13:47)
--- NOTE | 2016-08-23 14:06 | RADRPT ---
PROCEDURE: US OB biophysical profile. CLINICAL INDICATION: decreased movements, hypertension TECHNIQUE: Multiple sonographic images of the pelvis were obtained. The images were reviewed on a PACS workstation. COMPARISON: 08/21/2016 FINDINGS: There is a single viable intrauterine gestation. Cardiac activity is present with 154 beats per min [place]. There is a vertex presentation. The placenta is anterior. There is no evidence for an abruption or placenta previa. There is a decreased amount of amniotic fluid with an JODIE = 6.5 cm. Biophysical profile: movement 2/2 tone 2/2. breathing 2/2 JODIE 2/2 Total 12/05 RPTAT: AA . IMPRESSION: Normal biophysical profile. Mild oligohydramnios. . .Tyler Hills MD, MD Date Time Electronically viewed and signed by .Tyler Hills MD, MD on 08/23/2016 14:06 .S/
--- NOTE | 2016-08-23 14:06 | RADRPT ---
PROCEDURE: US OB. CLINICAL INDICATION: Size and dates , hypertension TECHNIQUE: Multiple sonographic images of the pelvis and gravid uterus were obtained. The images were reviewed on a PACS workstation. COMPARISON: 08/21/2016 FINDINGS: There is a single viable intrauterine gestation. Cardiac activity is present with 152 beats per min [place]. There is a vertex presentation. The placenta is anterior. There is no evidence for an abruption or placenta previa. There is a decreased amount of amniotic fluid with an JODIE = 6.5 cm. Measurements were made in order to determine age. The results are as follows: BPD =8.8 cm HC =31.7 cm AC =31.2 cm FL =6.7 cm Estimated gestational age of approximately 35 weeks and 2 days based on ultrasound measurements. Clinical age: 35 weeks and 0 days. The estimated date of delivery is 09/25/16, based on ultrasound measurements. The EFW = 2586 g, 48.9%, based on LMP age. RPTAT: AA IMPRESSION: Single viable intrauterine gestation of approximately 35 weeks and 2 days based on ultrasound measu rements. .Tyler Hills MD, Date Time Electronically viewed and signed by .Tyler Hills MD, on 08/23/2016 14:05 .S/
--- NOTE | 2016-08-23 20:44 | QN ---
Documentation Comment No complaint Afebrile VSS Strip Reactive Continue with in hospital care. SHEKHAR WILD MD Aug 23, 2016 20:44
[2016-08-24] MEDS: AL HYDROX/MG HYDROX/SIMETH 30 ML CUP PO PRN ×2 (00:49→10:49)
--- NOTE | 2016-08-24 09:46 | RADRPT ---
PROCEDURE: OB ultrasound for biophysical profile CLINICAL INDICATION: Low amniotic fluid index. TECHNIQUE: Multiple sonographic images of the pelvis were obtained. Transabdominal view of the gr avid uterus are available for review. The images were reviewed on a PACS workstation. COMPARISON: 08/23/2016. FINDINGS: breathing movement = 2/2 tone = 2/2 motion = 2/2 Quantitative amniotic fluid volume = 2/2 JODIE = 9.3 cm Single live intrauterine with cardiac activity at 161 beats per minute. There is a anterior placenta without previa. IMPRESSION: 1. Single living intrauterine gestation in cephalic position. 2. Biophysical profile = 8/8. 3. JODIE = 9.3 cm. RPTAT: AACC Physician Anabela Date Time Electronically viewed and signed by Physician Anabela on 08/24/2016 09:46 /
[2016-08-24] MEDS: ACCU-CHEK XX SCH ×3 (09:49→22:00)
[2016-08-24] MEDS: FERROUS SULFATE (EC) 325 MG TAB PO SCH (09:50)
[2016-08-24] MEDS: MULTIVIT/MIN/FOLATE/IRON/PREN TAB PO SCH (09:50)
[2016-08-24] MEDS: DOCUSATE SODIUM 100 MG CAP PO SCH (09:55)
[2016-08-24] MEDS: NEOMYC/POLYMYX/HC 10 ML OTIC SUSP LEFT EAR SCH ×4 (13:00→22:00)
--- NOTE | 2016-08-24 18:59 | QN ---
Documentation Comment Patient vomited once earlier. No complaint now. Afebrile VSS Abdomen soft NT Strip Reactive Continue with present care. SHEKHAR WILD MD Aug 24, 2016 18:59
[2016-08-24] MEDS: ACETAMINOPHEN 325 MG TAB PO PRN (20:48)
[2016-08-25] MEDS: ACCU-CHEK XX SCH ×4 (08:24→21:03)
[2016-08-25] MEDS: NEOMYC/POLYMYX/HC 10 ML OTIC SUSP LEFT EAR SCH ×4 (09:00→21:00)
[2016-08-25] MEDS: DOCUSATE SODIUM 100 MG CAP PO SCH (09:09)
[2016-08-25] MEDS: FERROUS SULFATE (EC) 325 MG TAB PO SCH (09:09)
--- NOTE | 2016-08-25 19:19 | QN ---
Documentation Comment No complaint Afebrile VSS Strip Reactive Continue with in hospital care. SHEKHAR WILD MD Aug 25, 2016 19:19
[2016-08-25] MEDS: MULTIVIT/MIN/FOLATE/IRON/PREN TAB PO SCH (21:03)
[2016-08-26] MEDS: ACCU-CHEK XX SCH ×4 (07:30→21:38)
[2016-08-26] MEDS: NEOMYC/POLYMYX/HC 10 ML OTIC SUSP LEFT EAR SCH ×4 (09:00→21:00)
--- NOTE | 2016-08-26 09:10 | QN ---
Documentation Comment No complaint Afebrile VSS Strip Reactive Continue with present care. SHEKHAR WILD MD Aug 26, 2016 09:10
[2016-08-26] MEDS: FERROUS SULFATE (EC) 325 MG TAB PO SCH (09:30)
[2016-08-26] MEDS: DOCUSATE SODIUM 100 MG CAP PO SCH (09:30)
[2016-08-26] MEDS: [UNRECOGNIZED DRUG - OTHER] IM SCH (14:00)
[2016-08-26] MEDS: MULTIVIT/MIN/FOLATE/IRON/PREN TAB PO SCH (21:30)
[2016-08-27] MEDS: ACCU-CHEK XX SCH ×4 (07:30→20:05)
[2016-08-27] MEDS: NEOMYC/POLYMYX/HC 10 ML OTIC SUSP LEFT EAR SCH ×4 (09:00→21:00)
[2016-08-27] MEDS: DOCUSATE SODIUM 100 MG CAP PO SCH (09:40)
[2016-08-27] MEDS: FERROUS SULFATE (EC) 325 MG TAB PO SCH (09:41)
[2016-08-27] MEDS: AL HYDROX/MG HYDROX/SIMETH 30 ML CUP PO PRN (12:20)
--- NOTE | 2016-08-27 17:15 | QN ---
Documentation Comment No complaint Afebrile VSS Strip Reactive Continue with present care. SHEKHAR WILD MD Aug 27, 2016 17:15
[2016-08-27] MEDS: MULTIVIT/MIN/FOLATE/IRON/PREN TAB PO SCH (21:37)
[2016-08-27] MEDS: SENNA TAB PO PRN (21:37)
[2016-08-28] MEDS: ACCU-CHEK XX SCH ×4 (08:25→20:05)
[2016-08-28] MEDS: NEOMYC/POLYMYX/HC 10 ML OTIC SUSP LEFT EAR SCH ×4 (09:00→21:00)
--- NOTE | 2016-08-28 09:11 | RADRPT ---
PROCEDURE: US OB biophysical profile. CLINICAL INDICATION: decreased movements, labor TECHNIQUE: Multiple sonographic images of the pelvis were obtained. The images were reviewed on a PACS workstation. COMPARISON: 08/24/2016 FINDINGS: There is a single viable intrauterine gestation. Cardiac activity is present with 152 beats per min [place]. There is a vertex presentation. The placenta is anterior. There is no evidence of placental abruption. There is a normal amount of amniotic fluid with an JODIE = 8.4 cm. Biophysical profile: movement 2/2 tone 2/2. breathing 2/2 JODIE 2/2 Total 12/05 RPTAT: AA . IMPRESSION: Normal biophysical profile. . .Tyler Hills MD, MD Date Time Electronically viewed and signed by .Tyler Hills MD, MD on 08/28/2016 09:11 .S/
[2016-08-28] MEDS: FERROUS SULFATE (EC) 325 MG TAB PO SCH (09:27)
[2016-08-28] MEDS: DOCUSATE SODIUM 100 MG CAP PO SCH (09:27)
--- NOTE | 2016-08-28 19:30 | QN ---
Documentation Comment No complaint Afebrile VSS Strip Category I BPP 12/05 Continue with present care. SHEKHAR WILD MD August 28, 2016 19:29
[2016-08-28] MEDS: SENNA TAB PO PRN (21:22)
[2016-08-28] MEDS: MULTIVIT/MIN/FOLATE/IRON/PREN TAB PO SCH (21:22)
[2016-08-29] MEDS: NEOMYC/POLYMYX/HC 10 ML OTIC SUSP LEFT EAR SCH (09:00)
[2016-08-29] MEDS: ACCU-CHEK XX SCH ×4 (09:30→21:28)
[2016-08-29] MEDS: DOCUSATE SODIUM 100 MG CAP PO SCH (10:01)
[2016-08-29] MEDS: FERROUS SULFATE (EC) 325 MG TAB PO SCH (10:01)
[2016-08-29] MEDS: ACETAMINOPHEN 325 MG TAB PO PRN (11:59)
[2016-08-29 16:10] LABS: ADD SCAN DIFF NO
[2016-08-29 16:12] LABS: BASOPHILS % 0.2 % (0.0-2.0); EOSINOPHILS # 0.1 10^3/ul (0.0-0.5); EOSINOPHILS % 0.6 % (0.0-7.0); HEMATOCRIT 37.3 % (37.0-47.0); HEMOGLOBIN 12.7 g/dl (12.0-16.0); LYMPHOCYTES # 2.3 10^3/ul (0.8-2.9); LYMPHOCYTES % 20.3 % (15.0-51.0); MEAN CORPUSCULAR VOLUME 88.2 fl (82.0-101.0); MEAN PLATELET VOLUME 12.3 fl (7.4-10.4); MONOCYTE # 0.8 10^3/ul (0.3-0.9); MONOCYTES % 7.2 % (0.0-11.0); NEUTROPHIL # 7.9 10^3/ul (1.6-7.5); NEUTROPHILS % 71.2 % (39.0-77.0); PLATELET COUNT 270 10^3/UL (140-415); RED BLOOD COUNT 4.23 10^6/ul (4.20-5.40); RED CELL DISTRIBUTION WIDTH 13.8 % (11.5-14.5); WHITE BLOOD COUNT 11.1 10^3/ul (4.8-10.8)
--- NOTE | 2016-08-29 16:14 | QN ---
Documentation Comment 35+wks GA NST reassuring [place] occasion ctxs BP 140-150/90 No headache No blurry vision No epigastric pain --->PIH panel --->Vaginal exam if cervix has changed ,please transfer to L&D --->24 hr urine SHARON FIELDS M.D. August 29, 2016 16:14
[2016-08-29 16:21] LABS: ALBUMIN 3.1 g/dl (3.3-4.9)
[2016-08-29 16:22] LABS: POTASSIUM 3.7 mmol/L (3.5-5.1)
[2016-08-29 16:23] LABS: ADD UMIC YES; URINE BILIRUBIN (Dip) NEGATIVE (NEGATIVE); URINE BLOOD (Dip) NEGATIVE (NEGATIVE); URINE COLOR LT. YELLOW (YELLOW); URINE GLUCOSE (Dip) NEGATIVE (NEGATIVE); URINE KETONES (Dip) 15 (NEGATIVE); URINE LEUKOCYTE ESTERASE (Dip) TRACE (NEGATIVE); URINE NITRITE (Dip) NEGATIVE (NEGATIVE); URINE TOTAL PROTEIN (Dip) NEGATIVE (NEGATIVE); URINE UROBILINOGEN (Dip) 0.2 E.U./dL (0.1-1.0)
[2016-08-29 16:24] LABS: BILIRUBIN,INDIRECT 0.1 mg/dl (0-1.1); BILIRUBIN,TOTAL 0.1 mg/dl (0.2-1.3); CREATININE 0.45 mg/dl (0.44-1.00)
[2016-08-29 16:25] LABS: ALBUMIN/GLOBULIN RATIO 0.96; TOTAL PROTEIN 6.3 g/dl (6.1-8.1)
[2016-08-29 16:26] LABS: CALCIUM 8.9 mg/dl (8.4-10.2)
[2016-08-29 16:34] LABS: BACTERIA,URINE FEW; SQUAMOUS EPITHELIAL CELL,UR MANY; URINE RBCS 0-2 /HPF (0)
[2016-08-29] MEDS: MULTIVIT/MIN/FOLATE/IRON/PREN TAB PO SCH (21:28)
[2016-08-30] MEDS: ACCU-CHEK XX SCH ×4 (09:45→21:36)
[2016-08-30] MEDS: FERROUS SULFATE (EC) 325 MG TAB PO SCH (10:17)
[2016-08-30] MEDS: DOCUSATE SODIUM 100 MG CAP PO SCH (10:17)
[2016-08-30 18:33] LABS: SCRET 0.45 mg/dl (0.44-1.00)
--- NOTE | 2016-08-30 20:49 | QN ---
Documentation Comment No complaint. Afebrile VSS Strip Reactive 24 hour urine collection total protein normal Continue with present care. SHEKHAR WILD MD August 30, 2016 20:49
[2016-08-30] MEDS: MULTIVIT/MIN/FOLATE/IRON/PREN TAB PO SCH (21:20)
[2016-08-31] MEDS: ACCU-CHEK XX SCH ×4 (07:30→21:36)
[2016-08-31] MEDS: FERROUS SULFATE (EC) 325 MG TAB PO SCH (10:48)
[2016-08-31] MEDS: DOCUSATE SODIUM 100 MG CAP PO SCH (10:48)
--- NOTE | 2016-08-31 15:21 | RADRPT ---
PROCEDURE: US biophysical profile. CLINICAL INDICATION: Decreased motion. TECHNIQUE: Multiple sonographic images of the uterus were obtained. The images were revi ewed on a PACS workstation. COMPARISON: No prior studies are available for comparison. FINDINGS: There is a single live intrauterine gestation. heart rate is 118 beats per minute. The position is cephalic. The placenta is anterior lateral left grade II with no abruption or previa. The JODIE is 4.1 cm. (Normal = 5-20 cm.) Breathing Movement: 2 Gross Body Movement: 2 Tone: 2 Qualitative Amniotic Fluid Volume: 0 TOTAL: 6 IMPRESSION: 1. The biophysical score is 6/8. 2. Oligohydramnios with amniotic fluid index measuring 4.1 cm. RPTAT: QQ .Tony Roberts MD, Date Time Electronically viewed and signed by .Tony Roberts MD, on 08/31/2016 15:21 .R/
[2016-08-31] MEDS ORDERED: LACTATED RINGER'S 1,000 ML IV ONE (16:30)
[2016-08-31] MEDS: LACTATED RINGER'S 1,000 ML IV SCH (17:42)
--- NOTE | 2016-08-31 19:56 | QN ---
Documentation Comment No complaint. Patient denies any leakage of fluid. Afebrile VSS Abdomen soft NT Strip Reactive JODIE 4.1 IV hydration Repeat OJDIE in AM SHEKHAR WILD MD August 31, 2016 19:56
[2016-08-31] MEDS: MULTIVIT/MIN/FOLATE/IRON/PREN TAB PO SCH (21:23)
[2016-08-31] MEDS: SENNA TAB PO PRN (21:23)
[2016-09-01] MEDS: LACTATED RINGER'S 1,000 ML IV SCH ×4 (00:33→20:02)
[2016-09-01 06:32] LABS: ADD SCAN DIFF NO
[2016-09-01 06:42] LABS: BASOPHILS % 0.2 % (0.0-2.0); EOSINOPHILS # 0.1 10^3/ul (0.0-0.5); LYMPHOCYTES % 31.9 % (15.0-51.0); MEAN CORPUSCULAR HEMOGLOBIN 29.6 pg (29.0-33.0); MEAN CORPUSCULAR HGB CONC 33.3 g/dl (32.0-37.0); MEAN CORPUSCULAR VOLUME 88.7 fl (82.0-101.0); MEAN PLATELET VOLUME 12.6 fl (7.4-10.4); MONOCYTE # 0.7 10^3/ul (0.3-0.9); NEUTROPHIL # 5.5 10^3/ul (1.6-7.5); NEUTROPHILS % 59.4 % (39.0-77.0); PLATELET COUNT 268 10^3/UL (140-415); RED BLOOD COUNT 4.06 10^6/ul (4.20-5.40); RED CELL DISTRIBUTION WIDTH 14.1 % (11.5-14.5); WHITE BLOOD COUNT 9.2 10^3/ul (4.8-10.8)
[2016-09-01 07:14] LABS: ALBUMIN 2.8 g/dl (3.3-4.9); ALBUMIN/GLOBULIN RATIO 0.96; BILIRUBIN,INDIRECT 0.2 mg/dl (0-1.1); BILIRUBIN,TOTAL 0.2 mg/dl (0.2-1.3); CALCIUM 8.9 mg/dl (8.4-10.2); CREATININE 0.39 mg/dl (0.44-1.00); POTASSIUM 3.7 mmol/L (3.5-5.1); TOTAL PROTEIN 5.7 g/dl (6.1-8.1); URIC ACID 4.4 mg/dl (3.1-7.9)
[2016-09-01] MEDS: DOCUSATE SODIUM 100 MG CAP PO SCH (09:09)
[2016-09-01] MEDS: FERROUS SULFATE (EC) 325 MG TAB PO SCH (09:09)
--- NOTE | 2016-09-01 11:05 | QN ---
Documentation Comment No complaint Afebrile VSS Strip Reactive Will repeat JODIE today. SHEKHAR WILD MD September 01, 2016 11:05
[2016-09-01] MEDS: ACCU-CHEK XX SCH ×5 (11:45→22:35)
--- NOTE | 2016-09-01 12:49 | RADRPT ---
PROCEDURE: Limited OB ultrasound CLINICAL INDICATION: Oligohydramnios. Follow-up. Evaluate fluid volume. TECHNIQUE: Sonographic evaluation to assess the amniotic fluid volume was performed. Transabdomin al imaging of the gravid uterus was performed. COMPARISON: Exam dated 08/31/2016 and 08/28/2016. FINDINGS: Single live intrauterine with cardiac activity is identified with a heart rate of 12 4 beats per minute. There is a cephalic lie and an anterior, grade II placenta. The amniotic -fluid volume equals approximately 4.58 cm. IMPRESSION: Amniotic fluid volume equals 4.5 a cm, which is consistent with oligohydramnios and not significantl y changed from the prior. RPTAT: GG .Quinn Dorman MD, MD Date Time Electronically viewed and signed by .Quinn Dorman MD, on 09/01/2016 12:48 .P/
[2016-09-01 19:33] LABS: ADD SCAN DIFF NO
[2016-09-01 19:36] LABS: BASOPHILS % 0.2 % (0.0-2.0); EOSINOPHILS # 0.1 10^3/ul (0.0-0.5); EOSINOPHILS % 0.5 % (0.0-7.0); HEMATOCRIT 37.5 % (37.0-47.0); HEMOGLOBIN 12.3 g/dl (12.0-16.0); LYMPHOCYTES # 2.9 10^3/ul (0.8-2.9); LYMPHOCYTES % 27.8 % (15.0-51.0); MEAN CORPUSCULAR HEMOGLOBIN 29.1 pg (29.0-33.0); MEAN CORPUSCULAR HGB CONC 32.8 g/dl (32.0-37.0); MEAN CORPUSCULAR VOLUME 88.7 fl (82.0-101.0); MEAN PLATELET VOLUME 12.2 fl (7.4-10.4); MONOCYTE # 0.8 10^3/ul (0.3-0.9); MONOCYTES % 7.7 % (0.0-11.0); NEUTROPHIL # 6.6 10^3/ul (1.6-7.5); NEUTROPHILS % 63.3 % (39.0-77.0); PLATELET COUNT 276 10^3/UL (140-415); RED BLOOD COUNT 4.23 10^6/ul (4.20-5.40); RED CELL DISTRIBUTION WIDTH 14.3 % (11.5-14.5); WHITE BLOOD COUNT 10.5 10^3/ul (4.8-10.8)
[2016-09-01 19:50] LABS: INR 0.85; PROTIME 11.6 Sec (12.2-14.2); PT RATIO 0.9
[2016-09-01 19:51] LABS: PARTIAL THROMBOPLASTIN TIME 30.4 Sec (25.0-35.0)
[2016-09-01 19:53] LABS: POTASSIUM 3.5 mmol/L (3.5-5.1)
[2016-09-01 19:55] LABS: ALBUMIN/GLOBULIN RATIO 0.9; BILIRUBIN,INDIRECT 0.1 mg/dl (0-1.1); BILIRUBIN,TOTAL 0.1 mg/dl (0.2-1.3); CREATININE 0.39 mg/dl (0.44-1.00); TOTAL PROTEIN 6.3 g/dl (6.1-8.1)
[2016-09-01 19:56] LABS: CALCIUM 8.8 mg/dl (8.4-10.2); URIC ACID 4.2 mg/dl (3.1-7.9)
[2016-09-01] MEDS: MULTIVIT/MIN/FOLATE/IRON/PREN TAB PO SCH (22:04)
[2016-09-01] MEDS: SENNA TAB PO PRN (22:04)
[2016-09-02] MEDS: LACTATED RINGER'S 1,000 ML IV SCH ×4 (03:45→23:20)
[2016-09-02] MEDS: DOCUSATE SODIUM 100 MG CAP PO SCH (09:58)
[2016-09-02] MEDS: FERROUS SULFATE (EC) 325 MG TAB PO SCH (09:58)
[2016-09-02] MEDS: ACCU-CHEK XX SCH ×4 (10:13→23:50)
--- NOTE | 2016-09-02 12:15 | QN ---
Documentation Comment 36 weeks 3 days was admitted to the hospital for low JODIE of 4.1 patient underwent IV hydration JODIE improved to 4.5 on September 01 recommended repeat JODIE today if not improving induction may be considered at this time heart rate is category 1 and biophysical profile is 8 out of 8 VAHID THURMAN MD September 02, 2016 12:15
--- NOTE | 2016-09-02 12:32 | RADRPT ---
PROCEDURE: OB ultrasound for biophysical profile CLINICAL INDICATION: Low JODIE TECHNIQUE: Multiple sonographic images of the pelvis were obtained. Transabdominal views of the g ravid uterus are available for review. The images were reviewed on a PACS workstation. COMPARISON: OB ultrasound for JODIE dated 09/01/2016 FINDINGS: breathing movement = 2/2 tone = 2/2 motion = 2/2 JODIE = 2/2 JODIE = 4.9 cm Single live intrauterine with cardiac activity of 131 bpm. position is cephal ic. The placenta is anterior. IMPRESSION: 1. Single live intrauterine gestation. 2. Biophysical profile = 88. 3. JODIE = 4.9 cm. RPTAT: HH .Delores Solomon MD, Date Time Electronically viewed and signed by .Delores Solomon MD, on 09/02/2016 12:32 .G/
[2016-09-02] MEDS: [UNRECOGNIZED DRUG - OTHER] IM SCH (14:00)
[2016-09-02] MEDS: MULTIVIT/MIN/FOLATE/IRON/PREN TAB PO SCH (21:49)
[2016-09-02 21:53] LABS: ADD SCAN DIFF NO
[2016-09-02 21:57] LABS: BASOPHILS % 0.2 % (0.0-2.0); EOSINOPHILS # 0.1 10^3/ul (0.0-0.5); EOSINOPHILS % 0.6 % (0.0-7.0); HEMATOCRIT 39.4 % (37.0-47.0); HEMOGLOBIN 12.8 g/dl (12.0-16.0); LYMPHOCYTES # 3.4 10^3/ul (0.8-2.9); MEAN CORPUSCULAR HEMOGLOBIN 28.8 pg (29.0-33.0); MEAN CORPUSCULAR HGB CONC 32.5 g/dl (32.0-37.0); MEAN CORPUSCULAR VOLUME 88.5 fl (82.0-101.0); MEAN PLATELET VOLUME 12.2 fl (7.4-10.4); MONOCYTE # 0.8 10^3/ul (0.3-0.9); MONOCYTES % 6.9 % (0.0-11.0); NEUTROPHIL # 6.7 10^3/ul (1.6-7.5); NEUTROPHILS % 60.9 % (39.0-77.0); PLATELET COUNT 287 10^3/UL (140-415); RED BLOOD COUNT 4.45 10^6/ul (4.20-5.40); RED CELL DISTRIBUTION WIDTH 14.2 % (11.5-14.5)
[2016-09-02 22:16] LABS: ALBUMIN 3.2 g/dl (3.3-4.9)
[2016-09-02 22:17] LABS: POTASSIUM 3.7 mmol/L (3.5-5.1)
[2016-09-02 22:19] LABS: ALBUMIN/GLOBULIN RATIO 0.91; BILIRUBIN,INDIRECT 0.1 mg/dl (0-1.1); BILIRUBIN,TOTAL 0.1 mg/dl (0.2-1.3); CREATININE 0.39 mg/dl (0.44-1.00); TOTAL PROTEIN 6.7 g/dl (6.1-8.1)
[2016-09-03] MEDS: LACTATED RINGER'S 1,000 ML IV SCH ×2 (06:10→21:38)
[2016-09-03] MEDS ORDERED: MAGNESIUM SULFATE 20 GM/500 ML 500 ML IV SCH ×2 (06:56→17:30)
[2016-09-03] MEDS ORDERED: MAGNESIUM SULFATE 4 GM/100 ML 100 ML IV SCH (07:00)
[2016-09-03] MEDS ORDERED: CA GLUCONATE (GM) 10% 10ML INJ IV PRN ×2 (07:00→22:00)
[2016-09-03] MEDS ORDERED: OXYTOCIN 30 UNITS/LR 500 ML IV SCH ×3 (07:30→09:00)
[2016-09-03] MEDS ORDERED: LACTATED RINGER'S 1,000 ML IV SCH (08:38)
[2016-09-03] MEDS ORDERED: LACTATED RINGER'S 1,000 ML IV PRN (08:38)
[2016-09-03] MEDS ORDERED: METHYLERGONOVINE 0.2 MG INJ IM PRN ×2 (09:00→22:00)
[2016-09-03] MEDS ORDERED: BUTORPHANOL 2 MG INJ IV PRN (09:00)
[2016-09-03] MEDS ORDERED: IBUPROFEN 600 MG TAB PO PRN (09:00)
[2016-09-03] MEDS ORDERED: CARBOPROST 250 MCG INJ IM PRN ×2 (09:00→22:00)
[2016-09-03] MEDS ORDERED: OXYTOCIN 30 UNITS/LR 500 ML IV PRN (09:00)
[2016-09-03] MEDS ORDERED: LIDOCAINE 1% (MPF) 30 ML INJ INJ PRN (09:00)
[2016-09-03] MEDS ORDERED: MISOPROSTOL 200 MCG TAB PR PRN ×2 (09:00→22:00)
[2016-09-03] MEDS ORDERED: DEXTROSE 5%-LR 1,000 ML IV SCH (09:48)
[2016-09-03] MEDS ORDERED: FENTAnyl 2MCG/ML-ROPIV 0.2% 100 ML ONE (16:16)
[2016-09-03] MEDS ORDERED: ONDANSETRON 4 MG INJ IV PRN (17:00)
[2016-09-03] MEDS ORDERED: ZOLPIDEM 5 MG TAB PO PRN (17:00)
[2016-09-03] MEDS ORDERED: HYDROmorphONE 1 MG/ML SYG IV PRN ×2 (17:00)
[2016-09-03] MEDS ORDERED: FENTAnyl 2MCG/ML-ROPIV 0.2% 100 ML BAG EPI SCH (17:00)
[2016-09-03] MEDS ORDERED: NALOXONE (0.4 MG/ML) INJ IV PRN (17:00)
[2016-09-03] MEDS ORDERED: DIPHENHYDRAMINE 50 MG INJ IV PRN (17:00)
[2016-09-03] MEDS: OXYTOCIN 30 UNITS/LR 500 ML IV SCH (21:38)
--- NOTE | 2016-09-03 21:47 | LDN ---
Date/Time of Note Date/Time of Note DATE: 09/03/16 TIME: 21:45 Delivery Summary of a viable baby boy weighing 2695 grams or 5# 12oz, 19" long, and with Apgars of 9/9. Weeks of Gestation 36w 4d Placenta Delivered: Spontaneously Meconium: none Episiotomy: No Perineal laceration: 1 Laceration repair: 1st degree perineal laceration repaired with 2-0 chromic. Anesthesia type: Epidural Estimated blood loss: 450 Sponge & Needle done & correct: Yes All needle counts correct: Yes Any foreign bodies felt in the: No (vagina) Problems: Infant Delivery Information Sex Sex: male Apgars 1 Minute: 9 5 Minute: 9 Suctioning Nose & mouth suctioned at [place]: No Delee suction performed: No Umbilical Cord Umbilical cord with: 3 Vessels Cord presentations: no nuchal cord Cord Blood was obtained: Yes Mother & Baby Disposition Disposition Mom & Baby to Maternity; Good: Yes Baby to NICU: No GINGER FAULKNER MD September 03, 2016 21:47
[2016-09-03] MEDS ORDERED: OXYCODONE/ASPIRIN (4.88/325) TAB PO PRN (22:00)
[2016-09-03] MEDS ORDERED: LANOLIN 7 GM TUBE TOP PRN (22:00)
--- NOTE | 2016-09-03 22:02 | HP ---
Date/Time of Note Date/Time of Note DATE: 09/03/16 TIME: 21:50 OB - History Hx of Present Free Text/Dictation 20 y.o. G2 )1 with a h/o a prior PTD and subsequent demise of a 22 week gestation, hospitalized at [facility] since 06/07/16 for a short cervix. Pt was transferred to L and D with elevated BP's for delivery. Pt also has GDM, diet- controlled.No VB or leaking. Pt was started on Pitocin this AM as she was already 4cm for at least a week. {t was also started on magnesium as seizure prophylaxis. PMHx: GDM-diet controlled. Gastritis. PSHx: Cholecystectomy. All: latex. Estimated Due Date: September 27, 2016 : 2 Para: 1 Care: Good Care Ultrasounds: Normal mid trimester US Obstetrical Complications: Gestational Diabetes, Pre-eclampsia, Other (short cervix x 3 months) Medical Complications: Other (gastritis) Past Family/Social History * Past Medical, Surgical, Family and Obstetric Histories reviewed from chart. Blood Type: O- Rubella: immune RPR/VDRL: Negative GBS Status: Negative HBsAG: Negative OB Admission Exam Physical Exam HEENT: WNL Heart: Rhythm Normal Lungs: Clear Abdomen: WNL Extremities: Normal Reflexes: Normal Cervical Dilatation: 4cm Effacement: 50% Station: -3 Heart Rate: 130's Accelerations: Accelerations Present Varibility: Moderate Contractions on Admission: < 5 Minutes Apart Last 72 hourBlood Glucose Bedside Glucose - 72 Hours Test 09/01/16 09:08 09/01/16 11:45 09/01/16 15:03 09/01/16 22:35 Bedside Glucose 70mg/dL (70-220) 83mg/dL (70-220) 88mg/dL (70-220) 99mg/dL (70-220) Test 09/02/16 08:26 09/02/16 11:12 09/02/16 15:24 09/02/16 23:54 Bedside Glucose 67mg/dL (70-220) L 95mg/dL (70-220) 106mg/dL (70-220) 103mg/dL (70-220) Test 09/03/16 09:45 09/03/16 14:11 09/03/16 17:53 Bedside Glucose 73mg/dL (70-220) 77mg/dL (70-220) 78mg/dL (70-220) Last 72 hours Lab Results CBC & BMP 09/01/16 05:25 09/01/16 19:06 09/02/16 21:37 Liver Function Test 09/01/16 05:25 09/01/16 19:06 09/02/16 21:37 Alanine Aminotransferase (ALT/SGPT) 72 H 74 H 70 H Albumin 2.8 L 3.0 L 3.2 L Alkaline Phosphatase 366 H 378 H 390 H Aspartate Amino Transf (AST/SGOT) 29 33 28 Direct Bilirubin 0.00 0.00 0.00 Total Protein 5.7 L 6.3 6.7 Magnesium Level Test 09/03/16 12:45 09/03/16 18:00 Magnesium Level 4.2 H 4.7 H OB Assessment/Plan Reason for admission: induction of labor Other Assessment: Short cervix. Preeclampsia. Gestational diabetes. Plan: Induction Induction Method: per Pitocin Protocol Other plan: Magnesium sulfate seizure prophylaxis. GINGER FAULKNER MD September 03, 2016 22:00
[2016-09-03] MEDS: IBUPROFEN 600 MG TAB PO SCH (23:40)
[2016-09-04] VITALS (20 sets, daily range): BP systolic 118–156; BP diastolic 69–103; PULSE 65–94; RESP 16–18
[2016-09-04] MEDS: MAGNESIUM SULFATE 20 GM/500 ML 500 ML IV SCH ×3 (03:38→12:22)
[2016-09-04] MEDS: OXYTOCIN 30 UNITS/LR 500 ML IV SCH (05:02)
[2016-09-04] MEDS: IBUPROFEN 600 MG TAB PO SCH ×4 (06:04→23:32)
[2016-09-04] MEDS: PANTOPRAZOLE (EC) 40 MG TAB PO SCH (06:45)
[2016-09-04 07:27] LABS: ADD SCAN DIFF NO
[2016-09-04 07:40] LABS: BASOPHILS % 0.1 % (0.0-2.0); EOSINOPHILS % 0.1 % (0.0-7.0); HEMATOCRIT 32.3 % (37.0-47.0); HEMOGLOBIN 10.9 g/dl (12.0-16.0); LYMPHOCYTES # 2.7 10^3/ul (0.8-2.9); LYMPHOCYTES % 16.7 % (15.0-51.0); MEAN CORPUSCULAR HEMOGLOBIN 29.9 pg (29.0-33.0); MEAN CORPUSCULAR HGB CONC 33.7 g/dl (32.0-37.0); MEAN CORPUSCULAR VOLUME 88.5 fl (82.0-101.0); MEAN PLATELET VOLUME 12.5 fl (7.4-10.4); MONOCYTE # 1.3 10^3/ul (0.3-0.9); MONOCYTES % 8.3 % (0.0-11.0); NEUTROPHILS % 74.4 % (39.0-77.0); PLATELET COUNT 283 10^3/UL (140-415); RED BLOOD COUNT 3.65 10^6/ul (4.20-5.40); RED CELL DISTRIBUTION WIDTH 14.1 % (11.5-14.5); WHITE BLOOD COUNT 16.1 10^3/ul (4.8-10.8)
[2016-09-04] MEDS ORDERED: NON-FORMULARY/PATIENT OWN MED (Omeprazole* (Prilosec*) 40 MG) PO SCH (09:00)
[2016-09-04] MEDS: LACTATED RINGER'S 1,000 ML IV SCH (10:58)
[2016-09-04] MEDS: MULTIVIT/MIN/FOLATE/IRON/PREN TAB PO SCH (12:15)
[2016-09-04] MEDS: OXYTOCIN 30 UNITS/LR 500 ML IV PRN ×2 (12:21→19:19)
--- NOTE | 2016-09-04 17:08 | PN ---
Date/Time of Note Date/Time of Note DATE: 09/04/16 TIME: 17:06 OB Subjective Subjective Subjective day1 Vital signs blood pressures are running on 150s over high 90s currently on magnesium sulfate has no complaint of headache blurry vision or epigastric pain resting in bed adequate urine output will continue magnesium sulfate until a.m. we will evaluate blood pressures overnight. Laboratory Tests Test 09/03/16 17:53 09/03/16 18:00 09/04/16 00:25 09/04/16 06:50 Bedside Glucose 78mg/dL Magnesium Level 4.7mg/dl 5.1mg/dl 5.1mg/dl White Blood Count 16.110^3/ul Red Blood Count 3.6510^6/ul Hemoglobin 10.9g/dl Hematocrit 32.3% Mean Corpuscular Volume 88.5fl Mean Corpuscular Hemoglobin 29.9pg Mean Corpuscular Hemoglobin Concent 33.7g/dl Red Cell Distribution Width 14.1% Platelet Count 43223^3/UL Mean Platelet Volume 12.5fl Neutrophils % 74.4% Lymphocytes % 16.7% Monocytes % 8.3% Eosinophils % 0.1% Basophils % 0.1% Nucleated Red Blood Cells % 0.0/100WBC Neutrophils # 12.010^3/ul Lymphocytes # 2.710^3/ul Monocytes # 1.310^3/ul Eosinophils # 0.010^3/ul Basophils # 0.010^3/ul Nucleated Red Blood Cells # 0.010^3/ul Test 09/04/16 11:46 Magnesium Level 4.9mg/dl Current Medications Medications (Trade) Dose Ordered Sig/Maximiliano Route PRN Reason Start Time Stop Time Status Last Admin Dose Admin Lactated Ringer's 1,000 ml @ 75 mls/hr [id number] IV 06/07/16 13:39 06/17/16 15:41 DC 06/17/16 11:29 Magnesium Sulfate (Magnesium Sulfate 4 Gm/100 ml) 100 ml @ 200 mls/hr ONCE ONCE IV 06/07/16 14:00 06/07/16 14:29 DC 06/07/16 14:10 Betamethasone Acet/Betameth SodPhos 12 mg 12 mg Q24H IM 06/07/16 14:00 06/08/16 14:01 DC 06/08/16 14:11 Ampicillin 100 ml @ 100 mls/hr ONCE ONCE IV 06/07/16 14:00 06/07/16 15:01 DC 06/07/16 14:12 Ampicillin (Ampicillin 1 Gm/ NS (Pmx)) 50 ml @ 100 mls/hr Q4H IV 06/07/16 18:00 06/08/16 18:30 DC 06/08/16 17:26 Prenat Multivit/ Stone/Iron/Folic Ac ( S) 1 tab DAILY PO 06/08/16 09:00 07/17/16 09:48 DC 07/16/16 09:19 Ferrous Sulfate (Ferrous Sulfate (Ec)) 325 mg DAILY PO 06/08/16 09:00 08/21/16 17:38 DC 08/21/16 09:43 Docusate Sodium (Colace) 100 mg DAILY PO 06/08/16 09:00 08/21/16 17:37 DC 08/21/16 09:43 Acetaminophen (Tylenol Tab) 650 mg Q4H PRN PO PAIN AND OR ELEVATED TEMP 06/07/16 14:00 08/21/16 17:37 DC 08/21/16 09:44 Al Hydrox/Mg Hydrox/Simethicone (Mag-Al Plus) 30 ml Q6H PRN PO GASTROINTESTINAL UPSET 06/07/16 14:00 08/10/16 17:17 DC 08/06/16 19:33 Ondansetron HCl 4 mg 4 mg Q6H PRN IV NAUSEA AND/OR VOMITING 06/07/16 14:00 08/22/16 22:43 DC Magnesium Sulfate 500 ml @ 50 mls/hr Q10H IV 06/07/16 14:04 06/11/16 13:48 DC 06/10/16 03:42 Ampicillin 100 ml @ 100 mls/hr Q6 IVPB 06/08/16 18:30 06/08/16 18:33 DC Ampicillin 100 ml @ 100 mls/hr Q6 IVPB 06/09/16 00:00 06/17/16 15:41 DC 06/17/16 11:29 Ampicillin (Ampicillin 1 Gm/ NS (Pmx)) 50 ml @ 100 mls/hr ONCE IV 06/08/16 18:45 06/08/16 19:30 DC 06/08/16 18:44 Non-Formulary Medication ADMINISTER 1ML (250MG) INTRAMUSCULA... Sa@14 IM 06/10/16 14:00 09/03/16 08:42 DC 08/26/16 14:00 Senna (Senokot) 2 tab ONCE ONCE PO 06/10/16 21:00 06/11/16 13:51 DC 06/10/16 21:44 Witch Shereen/ Glycerin (Tucks Pads) 1 pad PRN PRN [place] HEMORRHOID/EPISIOTMY PAIN 06/10/16 21:00 08/22/16 22:43 DC 07/31/16 20:55 Senna (Senokot) 1 tab DAILY PO 06/14/16 09:00 07/17/16 09:49 DC 07/16/16 09:19 Witch Shereen/ Glycerin (Tucks Pads) 1 pad PRN PRN [place] HEMORROID PAIN/ITCHING 06/23/16 16:00 08/21/16 17:52 DC Pantoprazole (Protonix Tab) 40 mg ONCE ONCE PO 06/27/16 10:30 06/28/16 09:29 DC 06/27/16 11:32 Pantoprazole (Protonix Tab) 40 mg DAILY@06 PO 06/28/16 09:00 06/28/16 09:31 DC 06/28/16 09:23 Diagnostic Test (Pha) (Accu-Chek) 1 ea FBSPP XX 07/01/16 07:30 07/22/16 07:48 DC 07/21/16 20:57 Diphtheria/ Tetanus/Acell Pertussis (Adacel) 0.5 ml ONCE ONCE IM* 07/05/16 14:00 07/05/16 14:01 DC Influenza Virus Vaccine (Fluzone) 0.5 ml ONCE ONCE IM* 07/05/16 13:00 07/05/16 14:39 DC Diphtheria/ Tetanus/Acell Pertussis (Adacel) 0.5 ml ONCE ONCE IM* 07/14/16 09:00 07/14/16 09:01 DC 07/14/16 11:31 Prenat Multivit/ Stone/Iron/Folic Ac ( S) 1 tab DAILY@18 PO 07/17/16 18:00 07/18/16 00:06 DC 07/17/16 22:06 Senna (Senokot) 1 tab DAILY@18 PO 07/17/16 18:00 07/18/16 00:06 DC 07/17/16 22:06 Prenat Multivit/ Stone/Iron/Folic Ac ( S) 1 tab DAILY@21 PO 07/18/16 21:00 08/21/16 17:38 DC 08/20/16 21:00 Senna (Senokot) 1 tab DAILY@21 PO 07/18/16 21:00 08/21/16 17:39 DC 08/20/16 21:00 Diagnostic Test (Pha) (Accu-Chek) 1 ea Q2 XX 07/22/16 08:00 07/22/16 08:00 DC Diagnostic Test (Pha) 1 ea 1 ea FBSPP XX 07/22/16 08:00 09/03/16 08:41 DC 09/02/16 23:50 Magnesium Sulfate 100 ml @ 200 mls/hr ONCE ONCE IVPB 07/25/16 20:30 07/25/16 20:59 DC 07/25/16 21:57 Magnesium Sulfate (Magnesium Sulfate 20 Gm/500 ml) 500 ml @ 50 mls/hr Q10H IV 07/25/16 20:30 07/28/16 09:26 DC 07/27/16 23:54 Betamethasone Acet/Betameth SodPhos 12 mg 12 mg DAILY IM 07/25/16 20:30 07/25/16 21:17 DC Lactated Ringer's (Lr) 1,000 ml @ 75 mls/hr [id number] IV 07/25/16 21:00 07/28/16 18:42 DC 07/28/16 10:48 Betamethasone Acet/Betameth SodPhos (Celestone Soluspan) 12 mg Q24H IM 07/25/16 21:30 07/26/16 21:31 DC 07/26/16 21:45 Diphenhydramine HCl (Benadryl) 50 mg ONCE ONCE PO 07/26/16 22:00 07/26/16 22:01 DC 07/26/16 23:17 Diphenhydramine HCl (Benadryl) 50 mg HS PO 07/27/16 21:00 08/04/16 22:12 DC 08/04/16 21:22 Nifedipine (Procardia) 20 mg Q6 PO 07/28/16 09:30 08/21/16 17:40 DC 08/21/16 12:03 Al Hydrox/Mg Hydrox/Simethicone (Mag-Al Plus) 30 ml Q4H PRN PO GASTROINTESTINAL UPSET 07/29/16 13:00 07/29/16 13:00 DC Dibucaine (Nupercainal) 1 applic TID PRN TOP HEMORRHOID/EPISIOTMY PAIN 07/31/16 20:30 08/22/16 22:43 DC 07/31/16 20:55 Diphenhydramine HCl (Benadryl) 50 mg HS PRN PO INSOMNIA 08/05/16 21:00 08/21/16 17:37 DC Al Hydrox/Mg Hydrox/Simethicone (Mag-Al Plus) 30 ml Q6H PRN PO GASTROINTESTINAL UPSET 08/10/16 17:30 08/10/16 17:30 DC Al Hydrox/Mg Hydrox/Simethicone (Mag-Al Plus) 30 ml Q6H PRN PO GASTROINTESTINAL UPSET 08/10/16 17:17 09/03/16 08:41 DC 08/27/16 12:20 Neomycin/ Polymyxin/ Hydrocortisone 4 drop 4 drop QID LEFT EAR 08/15/16 22:30 08/29/16 10:03 DC 08/24/16 21:00 Lactated Ringer's 1,000 ml @ 125 mls/hr Q8H IV 08/21/16 13:30 08/22/16 15:44 DC 08/22/16 06:27 Ampicillin 100 ml @ 100 mls/hr ONCE ONCE IVPB 08/21/16 16:00 08/21/16 16:59 DC 08/21/16 16:05 Ampicillin 50 ml @ 100 mls/hr Q4 IVPB 08/21/16 17:00 08/21/16 17:00 DC Ampicillin 50 ml @ 100 mls/hr Q4 IVPB 08/21/16 20:00 08/22/16 00:28 DC 08/21/16 20:13 Lactated Ringer's (Lr) 1,000 ml @ 125 mls/hr Q8H IV 08/21/16 17:20 08/21/16 17:52 DC Butorphanol Tartrate (Stadol) 2 mg Q2H PRN IV PAIN 08/21/16 17:30 08/22/16 22:44 DC Lidocaine 30 ml 30 ml ONCE PRN INJ EPISIOTOMY/TEARING 08/21/16 17:30 08/22/16 22:44 DC Oxytocin/Lactated Ringer's 500 ml @ 125 mls/hr ONCE -MAY REPEAT X1 IV 08/21/16 17:30 08/22/16 22:44 DC Oxytocin/Lactated Ringer's 500 ml @ 125 mls/hr ONCE IV 08/21/16 17:30 08/22/16 22:45 DC Ibuprofen 600 mg 600 mg ONCE PRN PO Mild Pain (Pain Score 1-3) 08/21/16 17:30 08/22/16 22:45 DC Lactated Ringer's 1,000 ml @ 2,000 mls/hr Q30M PRN IV PRE-EPIDURAL BOLUS 08/21/16 22:00 08/22/16 22:44 DC Oxytocin/Lactated Ringer's 500 ml @ 0 mls/hr ONCE PRN IV For Hemorrhage Management 08/21/16 17:30 08/22/16 22:44 DC Methylergonovine Maleate (Methergine) 0.2 mg ONCE PRN IM VAGINAL BLEEDING 08/21/16 17:30 08/22/16 22:44 DC Carboprost Tromethamine (Hemabate) 250 mcg ONCE PRN IM VAGINAL BLEEDING 08/21/16 17:30 08/22/16 22:44 DC Misoprostol 1000 mcg 1,000 mcg ONCE PRN OH VAGINAL BLEEDING 08/21/16 17:30 08/21/16 17:52 DC Lactated Ringer's (Lr) 1,000 ml @ 125 mls/hr Q8H IV 08/21/16 17:40 08/21/16 17:52 DC Lidocaine 30 ml 30 ml ONCE PRN INJ EPISIOTOMY/TEARING 08/21/16 18:00 08/21/16 18:00 DC Oxytocin/Lactated Ringer's 500 ml @ 0 mls/hr ONCE PRN IV For Hemorrhage Management 08/21/16 18:00 08/21/16 18:00 DC Methylergonovine Maleate (Methergine) 0.2 mg ONCE PRN IM VAGINAL BLEEDING 08/21/16 18:00 08/21/16 18:00 DC Carboprost Tromethamine (Hemabate) 250 mcg ONCE PRN IM VAGINAL BLEEDING 08/21/16 18:00 08/21/16 18:00 DC Misoprostol 1000 mcg 1,000 mcg ONCE PRN OH VAGINAL BLEEDING 08/21/16 18:00 08/22/16 22:43 DC Lactated Ringer's 1,000 ml @ 125 mls/hr Q8H IV 08/21/16 20:53 08/22/16 23:10 DC 08/22/16 15:33 Dextrose/Lactated Ringer's (D5-Lr) 1,000 ml @ 125 mls/hr Q8H IV 08/21/16 20:53 08/22/16 23:11 DC 08/22/16 08:36 Ferrous Sulfate (Ferrous Sulfate (Ec)) 325 mg DAILY PO 08/22/16 09:00 09/03/16 08:42 DC 09/02/16 09:58 Docusate Sodium (Colace) 100 mg DAILY PO 08/22/16 09:00 09/03/16 08:41 DC 09/02/16 09:58 Acetaminophen (Tylenol Tab) 650 mg Q4H PRN PO PAIN AND OR ELEVATED TEMP 08/21/16 22:00 09/03/16 08:41 DC 08/29/16 11:59 Witch Shereen/ Glycerin (Tucks Pads) 1 pad PRN PRN [place] HEMORROID PAIN/ITCHING 08/21/16 22:00 08/22/16 22:43 DC Prenat Multivit/ [employer]able [employer] Project Manager/Iron/Folic Ac ( S) 1 tab DAILY@21 PO 08/22/16 21:00 09/03/16 08:42 DC 09/02/16 21:49 Senna (Senokot) 1 tab DAILY@21 PO 08/22/16 21:00 08/22/16 22:43 DC Diphenhydramine HCl 50 mg 50 mg HS PRN PO INSOMNIA 08/21/16 22:00 09/03/16 08:41 DC Ampicillin 100 ml @ 100 mls/hr ONCE ONCE IVPB 08/21/16 22:00 08/22/16 00:30 DC Ampicillin 50 ml @ 100 mls/hr Q4 IVPB 08/22/16 01:00 08/22/16 01:00 DC Ampicillin (Ampicillin 1 Gm/ NS (Pmx)) 50 ml @ 100 mls/hr Q4H IVPB 08/22/16 00:30 08/22/16 22:33 DC 08/22/16 20:31 Senna 1 tab 1 tab BID PRN PO CONSTIPATION 08/27/16 17:30 09/03/16 08:42 DC 09/01/16 22:04 Lactated Ringer's 1,000 ml @ 1,000 mls/hr Q1H ONCE IV 08/31/16 16:30 08/31/16 17:29 DC 08/31/16 16:30 Lactated Ringer's 1,000 ml @ 150 mls/hr Q6H40M IV 08/31/16 17:30 09/03/16 08:41 DC 09/03/16 06:10 Magnesium Sulfate 100 ml @ 200 mls/hr ONCE IV 09/03/16 07:00 09/03/16 07:29 DC 09/03/16 08:02 Magnesium Sulfate (Magnesium Sulfate 20 Gm/500 ml) 500 ml @ 50 mls/hr Q10H IV 09/03/16 06:56 09/03/16 08:41 DC 09/03/16 08:27 Calcium Gluconate 1 gm 1 gm ONCE PRN IV FOR MAGNESIUM TOXICITY 09/03/16 07:00 09/03/16 08:41 DC Oxytocin/Lactated Ringer's 500 ml @ 0 mls/hr Q0M IV 09/03/16 07:30 09/03/16 08:41 DC 09/03/16 08:17 Lactated Ringer's (Lr) 1,000 ml @ 125 mls/hr Q8H IV 09/03/16 08:38 09/03/16 21:44 DC 09/03/16 20:30 Butorphanol Tartrate (Stadol) 2 mg Q2H PRN IV PAIN 09/03/16 09:00 09/03/16 21:44 DC Lidocaine 30 ml 30 ml ONCE PRN INJ EPISIOTOMY/TEARING 09/03/16 09:00 09/03/16 21:44 DC Oxytocin/Lactated Ringer's 500 ml @ 125 mls/hr ONCE -MAY REPEAT X1 IV 09/03/16 09:00 09/03/16 21:44 DC 09/03/16 21:39 Oxytocin/Lactated Ringer's 500 ml @ 125 mls/hr ONCE IV 09/03/16 09:00 09/03/16 21:44 DC Ibuprofen 600 mg 600 mg ONCE PRN PO Mild Pain (Pain Score 1-3) 09/03/16 09:00 09/03/16 21:44 DC Lactated Ringer's 1,000 ml @ 2,000 mls/hr Q30M PRN IV PRE-EPIDURAL BOLUS 09/03/16 08:38 09/03/16 21:44 DC Oxytocin/Lactated Ringer's 500 ml @ 0 mls/hr ONCE PRN IV For Hemorrhage Management 09/03/16 09:00 09/03/16 21:44 DC Methylergonovine Maleate (Methergine) 0.2 mg ONCE PRN IM VAGINAL BLEEDING 09/03/16 09:00 09/03/16 21:44 DC Carboprost Tromethamine (Hemabate) 250 mcg ONCE PRN IM VAGINAL BLEEDING 09/03/16 09:00 09/03/16 21:44 DC Misoprostol 1000 mcg 1,000 mcg ONCE PRN OH VAGINAL BLEEDING 09/03/16 09:00 09/03/16 21:44 DC 09/03/16 21:37 Dextrose/Lactated Ringer's 1,000 ml @ 75 mls/hr [id number] IV 09/03/16 09:48 09/03/16 21:44 DC 09/03/16 10:00 Fentanyl/ Ropivacaine 100 ml @ ud STK-MED ONCE .ROUTE 09/03/16 16:16 09/03/16 16:17 DC Naloxone HCl (Narcan) 0.1 mg Q2M PRN IV FOR RESP RATE 8 OR LESS 09/03/16 17:00 09/03/16 21:44 DC Hydromorphone HCl (Dilaudid) 0.2 mg Q3H PRN IV PAIN LEVEL 1-5 09/03/16 17:00 09/03/16 21:44 DC Hydromorphone HCl (Dilaudid) 0.4 mg Q3H PRN IV PAIN LEVEL 6-10 09/03/16 17:00 09/03/16 21:44 DC Diphenhydramine HCl (Benadryl) 25 mg Q6H PRN IV ITCHING 09/03/16 17:00 09/03/16 21:44 DC Ondansetron HCl (Zofran Inj) 4 mg Q6H PRN IV NAUSEA AND/OR VOMITING 09/03/16 17:00 09/03/16 21:45 DC Zolpidem Tartrate (Ambien) 5 mg HS MAY REPEAT X 1 PRN PO INSOMNIA 09/03/16 17:00 09/03/16 21:45 DC Fentanyl/ Ropivacaine 100 ml 100 ml EPIDURAL INFUSION EPI 09/03/16 17:00 09/03/16 21:45 DC 09/03/16 20:31 Magnesium Sulfate 500 ml @ 50 mls/hr Q10H IV 09/03/16 17:30 09/03/16 21:45 DC 09/03/16 17:45 Oxytocin/Lactated Ringer's 500 ml @ 125 mls/hr Q4H IV 09/03/16 21:38 09/04/16 05:37 DC 09/04/16 05:02 Ibuprofen (Motrin) 600 mg Q6 PO 09/04/16 00:00 09/04/16 12:16 Oxycodone/Aspirin (Percodan) 1 tab Q3H PRN PO PAIN LEVEL 1-5 09/03/16 22:00 Lanolin (Alk-E-Dvhfcg) 1 applic BEDSIDE MEDICATION PRN TOP BEDSIDE FOR SEEMA TO NIPPLES 09/03/16 22:00 Diphtheria/ Tetanus/Acell Pertussis 0.5 ml 0.5 ml ONCE ONCE IM* 09/05/16 09:00 09/05/16 09:01 Oxytocin/Lactated Ringer's 500 ml @ 0 mls/hr ONCE PRN IV For Hemorrhage Management 09/03/16 22:00 09/04/16 12:21 Methylergonovine Maleate (Methergine) 0.2 mg ONCE PRN IM VAGINAL BLEEDING 09/03/16 22:00 Carboprost Tromethamine (Hemabate) 250 mcg ONCE PRN IM VAGINAL BLEEDING 09/03/16 22:00 Misoprostol 1000 mcg 1,000 mcg ONCE PRN OH VAGINAL BLEEDING 09/03/16 22:00 Lactated Ringer's 1,000 ml @ 75 mls/hr [id number] IV 09/03/16 21:38 Magnesium Sulfate (Magnesium Sulfate 20 Gm/500 ml) 500 ml @ 50 mls/hr Q10H IV 09/03/16 21:38 09/04/16 20:00 09/04/16 12:22 Calcium Gluconate (Ca Gluc) 1 gm ONCE PRN IV FOR MAGNESIUM TOXICITY 09/03/16 22:00 Prenat Multivit/ [employer] Project Manager/Iron/Folic Ac ( S) 1 tab DAILY PO 09/04/16 09:00 09/04/16 12:15 Miscellaneous Information 40 mg DAILY PO 09/04/16 09:00 09/04/16 09:00 DC Pantoprazole (Protonix Tab) 40 mg DAILY@06 PO 09/04/16 06:00 09/04/16 06:45 VAHID THURMAN MD September 04, 2016 17:08
[2016-09-04] MEDS: LABETALOL 100 MG TAB PO SCH (21:16)
[2016-09-05] VITALS: BP 130/88; PULSE 65; RESP 18
[2016-09-05] MEDS: LACTATED RINGER'S 1,000 ML IV SCH (00:18)
[2016-09-05 04:45] VITALS: BP 130/82; PULSE 66; RESP 18
[2016-09-05] MEDS: IBUPROFEN 600 MG TAB PO SCH ×3 (06:13→17:47)
[2016-09-05] MEDS: PANTOPRAZOLE (EC) 40 MG TAB PO SCH (06:13)
[2016-09-05 08:00] VITALS: BP 133/87; PULSE 64; RESP 17
[2016-09-05] MEDS ORDERED: DIPHTH/TET/ACEL PERTUSS (ADULT) 0.5 ML VIAL IM* ONE (09:00)
[2016-09-05] MEDS: MULTIVIT/MIN/FOLATE/IRON/PREN TAB PO SCH (09:06)
[2016-09-05 09:07] VITALS: BP 137/91; PULSE 67
[2016-09-05] MEDS: LABETALOL 100 MG TAB PO SCH (09:07)
[2016-09-05 17:30] VITALS: BP 130/87; PULSE 65; RESP 20
== END 2016-09-05 19:07 | disposition home or self-care (01) | DRG 774 ==
LOC: OBG 12:59 → L-D 08-21 16:37 → OBG 08-22 23:28 → L-D 09-03 07:46 → PP1 09-04 01:01
PROVIDERS: ADMIT Obstetrics & Gynecology; ATTEND Obstetrics & Gynecology
PROC: 10E0XZZ Delivery of Products of Conception, External Approach (ICD-10-PCS; principal; 2016-09-03)
PROC: 0HQ9XZZ Repair Perineum Skin, External Approach (ICD-10-PCS; 2016-09-03)
PROC: 3E033VJ Introduction of Other Hormone into Peripheral Vein, Percutaneous Approach (ICD-10-PCS; 2016-09-03)
DX: O60.13X0 Preterm labor second trimester with preterm delivery third trimester, not applicable or unspecified (principal); O14.93 Unspecified pre-eclampsia, third trimester; O26.872 Cervical shortening, second trimester; O41.02X0 Oligohydramnios, second trimester, not applicable or unspecified; O20.0 Threatened abortion; O23.42 Unspecified infection of urinary tract in pregnancy, second trimester; O60.03 Preterm labor without delivery, third trimester; O24.410 Gestational diabetes mellitus in pregnancy, diet controlled; O70.0 First degree perineal laceration during delivery; Z3A.36 36 weeks gestation of pregnancy; Z37.0 Single live birth; Z3A.24 24 weeks gestation of pregnancy; Z3A.31 31 weeks gestation of pregnancy; H60.92 Unspecified otitis externa, left ear
CPT/HCPCS: 62319; 76815; 76816; 76818; 80053; 81001; 81003; 82575; 82951; 82962; 83735; 84156; 84560; 85025; 85610; 85730; 86592; 86850; 86885; 86900; 86901; 87075; 87081; 87086; 87340; 90686; 90715; 97161; 99464; J0290; J0702; J2590; J2790; J3010; J3475; J7120; J7121